=== PATIENT | female | born 1970 | race Caucasian/White ===

== ENCOUNTER → 2017-06-26 10:56 | Outpatient (CLI) | payer BC, OTHER, SELFPAY ==
[2017-06-26 12:56] LABS: Anion Gap 7 (5-15); BUN 11 mg/dL (7-18); BUN/Creat Ratio 17.7 RATIO (10-20); Calcium,Total 9.1 mg/dL (8.5-10.1); Chloride 106 mmol/L (98-107); Cholesterol 205 mg/dL (200); Creatinine, Serum 0.62 mg/dL (0.55-1.02); EST Glomerular Filtration Rate 108 mL/min (>60); Est Glom Filt Rate - Afr Amer 131 mL/min (>60); Glucose 83 mg/dL (74-106); High Density Lipoprotein 41 mg/dL; Sodium Level 138 mmol/L (136-145); Triglycerides 100 mg/dL; Very Low Density Lipoprotein 20 mg/dL (5-40)
== END ==
PROVIDERS: Family Provider Family Medicine; PCP Family Medicine; Visit Provider Family Medicine
DX: Z00.00 Encounter for general adult medical examination without abnormal findings (principal)
CPT/HCPCS: 36415; 80048; 80061

== ENCOUNTER → 2018-04-14 15:48 | Outpatient (CLI) | payer BC, SELFPAY | PROVIDERS: Family Provider Family Medicine; PCP Family Medicine; Referring Provider Otolaryngology Otolaryngology/Facial Plastic Surgery; Visit Provider Otolaryngology Otolaryngology/Facial Plastic Surgery | DX: J32.9 Chronic sinusitis, unspecified (principal); H66.90 Otitis media, unspecified, unspecified ear | CPT/HCPCS: 87070; 87205 ==

== ENCOUNTER → 2019-03-24 14:52 | Outpatient (CLI) | payer BC, SELFPAY ==
[2019-03-24 18:15] LABS: Anion Gap 7 (5-15); BUN 12 mg/dL (7-18); BUN/Creat Ratio 16.6 RATIO (10-20); Calcium,Total 9.5 mg/dL (8.5-10.1); Chloride 107 mmol/L (98-107); Cholesterol 213 mg/dL (200); Creatinine, Serum 0.72 mg/dL (0.55-1.02); EST Glomerular Filtration Rate 91 mL/min (>60); Est Glom Filt Rate - Afr Amer 110 mL/min (>60); Glucose 87 mg/dL (74-106); High Density Lipoprotein 41 mg/dL; Potassium 3.7 mmol/L (3.5-5.1); Sodium Level 140 mmol/L (136-145); Triglycerides 96 mg/dL; Very Low Density Lipoprotein 19 mg/dL (5-40)
[2019-03-24 18:17] LABS: Vitamin D,25 Hydroxy 7.7 ng/mL (29.95-100.01)
== END ==
LOC: BIMLAB 14:54 → MFPLAB 03-25 08:08
PROVIDERS: PCP Family Medicine; Referring Provider Family Medicine; Visit Provider Family Medicine
DX: Z00.00 Encounter for general adult medical examination without abnormal findings (principal)
CPT/HCPCS: 36415; 80048; 80061; 82306

== ENCOUNTER → 2019-04-07 07:43 | Outpatient (CLI) | payer BC, SELFPAY ==
--- NOTE | 2019-04-07 07:46 | BI_ITS ---
MAMMOGRAPHY - BILATERAL SCREENING REASON FOR EXAM: Female, 48 years old. Routine annual screening examination. PERTINENT HISTORY: Aunt with breast cancer. TECHNIQUE: Digital bilateral breast ezio (3D mammographic acquisition) in the CC and MLO projections. 2-D mediolateral oblique (MLO) and craniocaudad (CC) views of both breasts were obtained. CAD: Full Field Digital Mammography with Computer Added Detection was performed. COMPARISON: Comparison is made with prior outside examination dated July 16, 2016. FINDINGS: Breast Composition: The breasts are heterogeneously dense, which may obscure small masses. There are no dominant masses or suspicious calcifications. Stable benign-appearing bilateral axillary lymph nodes. No other significant abnormalities are identified. There has been no significant change since the prior study. BI/SCREEN MAMM (CAD) W/EZIO BILAT IMPRESSION: Stable bilateral screening mammogram. Yearly follow-up mammogram recommended. (A) ASSESSMENT CATEGORY: BIRADS Category 2: Benign. A letter regarding these results will be sent to the patient by the facility within 30 days. Approximately 10% of breast cancers are not detected by mammography. A normal mammogram should not delay biopsy of a clinically suspicious abnormality. [id number] Electronically Signed: Melchor Kimble, at 10:30 EST , Service support ,
--- NOTE | 2019-04-07 08:08 | BD_ITS ---
STUDY: DUAL ENERGY X-RAY ABSORPTIOMETRY / DXA REASON FOR EXAM: Female, 48 years old. 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 COMPARISON: None. FINDINGS: Lumbar Spine (L1-L4): g/cm2 (1.083) / T-score (-0.7) / Z-score (-0.3) Findings are suggestive of normal bone density with a low fracture risk. Left Femur Total: g/cm2 (0.950) / T-score (-0.5) / Z-score (0.0) Left Femoral Neck: g/cm2 (0.919) / T-score (-0.9) / Z-score (0.0) Right Femur Total: g/cm2 (0.942) / T-score (-0.5) / Z-score (0.0) Right Femoral Neck: g/cm2 (0.877) / T-score (-1.2) / Z-score (-0.3) BD/Dexa Bone Density Study IMPRESSION: The patient is considered osteopenic as outlined below according to World Meng Organization (WHO) criteria with a low fracture risk. Reference Information: The T-score is the number of standard deviations above or below the standard which is normal for young adults at their peak bone mineral density. The World Health Organization (WHO) interprets the T-scores as follows: Above -1 Normal bone density Between -1 and -2.5 Osteopenia Equal to / or below -2.5 Osteoporosis As a practical clinical guideline, osteopenia may be graded as follows: Mild -1 through -1.5 Moderate -1.6 through -2.0 Severe -2.1 through -2.4 The Z-score is the number of standard deviations above or below age-matched controls. A Z-score of less than -1.5 would be considered abnormal. References: 1. NIH Osteoporosis and Related Bone Diseases http://www.osteo.org 2. International Society for Clinical Densitometry http://www.iscd.org 3. National Osteoporosis Foundation http://www.nof.org Electronically Signed: Melchor Kimble, at 15:00 EST , Service support ,
== END ==
PROVIDERS: PCP Family Medicine; Referring Provider Family Medicine; Visit Provider Family Medicine
DX: Z12.31 Encounter for screening mammogram for malignant neoplasm of breast (principal); Z78.0 Asymptomatic menopausal state
CPT/HCPCS: 77063; 77067; 77080

== ENCOUNTER 2019-09-13 01:27 | Emergency (ER) | payer BC, SELFPAY ==
[2019-09-13 01:29] VITALS: BP 196/113; PULSE 112; RESP 11; TEMP 37; O2SAT 99; BMI 31.1
[2019-09-13 01:31] VITALS: BP 194/113
--- NOTE | 2019-09-13 01:36 | ED.RN ---
NO OLD EKGS IN MUSE
--- NOTE | 2019-09-13 01:44 | CT_ITS ---
STUDY: CT BRAIN WITHOUT CONTRAST REASON FOR EXAM: Female, 49 years old. HEADACHE AND PALPITATIONS TODAY RADIATION DOSAGE (If Supplied By Facility): CTDIvol = ( 44.99 ) mGy, DLP = ( 796.11 ) mGycm TECHNIQUE: Transaxial CT imaging of the brain was performed without administration of intravenous contrast material. Individualized dose optimization techniques were used for this CT. COMPARISON: No relevant priors. FINDINGS: Normal soft tissue structures. Normal calvarium. Normal size ventricles and extra-axial spaces for the patient''s age. Normal white matter tracts of the cerebral hemispheres. Normal basal ganglia and thalami. Normal brainstem. Normal cerebellum. In the posterior aspect of the right parietal region there is a small calcification table the skull which may represent a nonspecific intervertebral calcification measuring 3 mm versus a small calcified meningioma. There is no intracranial hemorrhage. There are no findings of an acute ischemic infarction. There is a right-sided maxillary mucosal retention cyst. CT/Brain/Head without Contrast IMPRESSION: Normal unenhanced CT scan of the brain. In the posterior aspect of the right parietal region there is a small calcification at the level of the inner table of the skull which may represent a most likely nonspecific benign calcification measuring 3 mm versus a small calcified meningioma. There is no visualized surrounding edema. Electronically Signed: Mel Damon MD at 2:14 EDT Tel , Service support ,
--- NOTE | 2019-09-13 01:44 | RAD_ITS ---
STUDY: X-RAY CHEST REASON FOR EXAM: Female, 49 years old. Heart palpitations TECHNIQUE: Single AP portable view of the chest. COMPARISON: None. FINDINGS: The lungs are underexpanded. Interstitial markings are minimally prominent centrally. There is no demonstrated pleural abnormality. Normal size heart. Normal mediastinum and nathalie. Normal visualized pulmonary arteries. Normal visualized aortic arch and descending thoracic aorta. Normal visualized thoracic spine. Normal visualized ribs, clavicles, and shoulders. There is no demonstrated abnormality of the visualized soft tissue structures of the upper abdomen. RAD/Chest 1 View (Portable) IMPRESSION: Underexpansion of the lungs. Consider central vascular congestion. Electronically Signed: Mel Damon MD at 2:05 EDT Tel , Service support ,
--- NOTE | 2019-09-13 01:44 | EKG12_ITS ---
Test Reason : TACHYCARDIA Blood Pressure : / mmHG Vent. Rate : 105 BPM Atrial Rate : 105 BPM P-R Int : 168 ms QRS Dur : 068 ms QT Int : 342 ms P-R-T Axes : 050 051 048 degrees QTc Int : 452 ms Sinus tachycardia Otherwise normal ECG Confirmed by ANGELA EASTON ([id number]), commissioning editor VASILIY COLE ([id number]) on 09/15/2019 2:49:45 PM Referred By: LEIDY Confirmed By:ANGELA EASTON
--- NOTE | 2019-09-13 01:45 | ED.VIS.GEN ---
History of Present Illness Chief Complaint: Palpitations Informant: Patient Narrative: Patient presents with palpitations. She stated her heart has been racing throughout most of the day today. It is been in the low 100s but up to 140s and 150s. She denies any chest pain or shortness of breath or cardiac symptoms. She has noticed her heart racing however. She is never had this in the past. No history of arrhythmias. Patient stated this evening she had a diffuse achy throbbing headache. She normally does not get headaches. She took Advil for this. She still has a mild headache but it is better. No fevers or chills. No pulmonary embolism risk factors. Past Medical History - Allergies and Home Meds Allergies/Adverse Reactions: Allergies morphine Allergy (Verified 09/13/19 01:28) Itching oxycodone Allergy (Verified 09/13/19 01:28) Itching Primary Care Physician: Aidan Ramsey MD [Primary Care Provider] - Prior records reviewed: Yes Past Medical History: - - Reviewed Surgical History: - - Reviewed Lives: With Family Smoking Status: Current every day smoker Alcohol: None Drugs: None Review of Systems General: Denies: Chills, Fever, Sweats Eyes: Denies: Visual changes - bilaterally, Diplopia ENT: Denies: Rhinorrhea, Sore throat Cardiovascular: Reports: Palpitations, Heart racing. Denies: Chest pain Respiratory: Denies: Dyspnea, Cough, Dyspnea on exertion Gastrointestinal: Denies: Abdominal pain, Nausea, Vomiting, Diarrhea, Melena, Hematochezia Genitourinary: Denies: Dysuria, Hematuria, Frequency Musculoskeletal: Denies: Back pain, Extremity Pain Skin: Denies: Rash, Wounds Neurological: Reports: Headache. Denies: Weakness, Numbness Physical Exam Vital Signs/Narrative: Vital Signs Temp Pulse Resp BP Pulse Ox 09/13/19 01:31 194/113 H 09/13/19 01:29 98.6 F 112 H 11 L 196/113 H 99 General: Well nourished, Well developed, No Acute Distress Head: Normocephalic, Atraumatic Eyes: Perrl, EOMI ENT: Moist mucous membranes, No rhinorrhea Neck: Supple, Nontender Cardiovascular: Regular rate, No murmurs, Tachycardia Respiratory: No distress, CTA bilaterally, Chest nontender Abdomen: Soft, Nontender, Nondistended, Normal bowel sounds Back: Nontender, Normal Inspection Extremities: Nontender, No edema Skin: Normal color, No rash Neurological: Alert, Oriented x3, Cranial nerves II-XII grossly intact, Normal Strength, Normal Sensation, Normal DTR, Normal Gait. Negative for: Confused, Disoriented Psychological: Normal affect, Normal Mood Diagnostic/Tx/Re-eval - Medical Decision Making EKG obtained shows sinus tachycardia at 105. No acute ischemic findings. Lab work chest x-ray and CT head obtained. Lab work shows nothing acute except for mildly elevated d-dimer just above 0.5. CBC shows no significant abnormalities. Troponin negative. Chest x-ray shows nothing acute. CT head shows no intracerebral or brain hemorrhage. Small 3 mm calcification versus calcified meningioma noted. CT Lizett of the chest shows no evidence of PE or dissection. Evidence of chronic COPD and aortic calcification noted. Patient's heart rate came down to the 80s. Blood pressure came down to the 160s. She will follow-up as an outpatient for repeat blood pressure check. I do not feel she needs emergent treatment at this time. Is unclear to me what was the cause of her tachycardia. She had a negative Holter monitor evaluation several years ago and we will give her another Holter. We will follow-up as an outpatient ED Disposition - Plan for ED Patient: Disposition: Home or Assisted Living Diagnosis: Sinus tachycardia, Hypertension, Headache Instructions: ED Palpitations Referrals: Aidan Ramsey MD [Primary Care Provider] -
[2019-09-13 01:46] VITALS: O2SAT 97
[2019-09-13 01:49] LABS: Absolute Lymphocyte Count 2.62 X10^3/uL (0.83-4.51); Absolute Neutrophil Count 7.8 X10^3/uL (2.0-7.7); Basophil# 0.05 X10^3/uL; Basophil% 0.4 % (0-1); Eosinophil# 0.41 X10^3/uL; Eosinophils% 3.5 % (0-5); Hematocrit 46.4 % (37-47); Hemoglobin 15.7 g/dL (12.0-15.0); Lymphocyte # 2.62 X10^3/ul (4.0); Lymphocyte % 22.6 % (19-41); Mean Corp Hgb Conc 33.8 g/dL (32-36); Mean Corpuscular Hgb 30.1 pg (27.0-32.0); Mean Corpuscular Volume 88.9 fL (81-99); Mean Platelet Vol. 9.8 fl (6.2-12.0); Monocyte# 0.67 X10^3/uL; Monocyte% 5.8 % (0-10); NRBC Flagged by Analyzer 0 % (0-5); Neutrophil # 7.83 X10^3/uL (2.7-7.7); Neutrophil % 67.5 % (47-70); Platelet Count 249 K/mm3 (150-450); RBC Distribution Width CV 12.7 % (11.6-14.6); RBC Distribution Width SD 41.1 fl (35.1-43.9); Red Blood Count 5.22 M/mm3 (4.2-5.4); White Blood Count 11.6 K/mm3 (4.4-11.0)
[2019-09-13 02:05] LABS: Anion Gap 6 (5-15); BUN 15 mg/dL (7-18); BUN/Creat Ratio 20.1 RATIO (10-20); Calcium,Total 9.6 mg/dL (8.5-10.1); Chloride 108 mmol/L (98-107); Creatinine, Serum 0.75 mg/dL (0.55-1.02); EST Glomerular Filtration Rate 87 mL/min (>60); Est Glom Filt Rate - Afr Amer 105 mL/min (>60); Estimated Creatinine Clearance 73.41 ml/min; Glucose 125 mg/dL (74-106); Potassium 3.7 mmol/L (3.5-5.1); Sodium Level 141 mmol/L (136-145)
[2019-09-13 02:38] LABS: D-Dimer Quantitative (DVT/PE) 0.51 FEU/ug/m (0.27-0.49)
--- NOTE | 2019-09-13 02:39 | CT_ITS ---
STUDY: CTA CHEST REASON FOR EXAM: Female, 49 years old. TACHYCARDIA, PALPITATIONS, ELEVATED D-DIMER RADIATION DOSAGE (If Supplied By Facility): CTDIvol = ( 12.47 ) mGy, DLP = ( 450.63 ) mGycm TECHNIQUE: The examination was performed with the intravenous administration of IV 100mL Isovue-370. Post-processing of the angiographic images was performed, with multiplanar reformation and 3D reconstruction. Individualized dose optimization techniques were used for this CT. COMPARISON: September 13, 2019 chest x-ray FINDINGS: Normal enhancement of the main pulmonary artery and right and left pulmonary arteries. Normal enhancement of the bilateral peripheral pulmonary arteries. There is no demonstrated pulmonary embolism. There is atherosclerotic calcification of the aortic arch with tortuosity. There is a bovine arch with a common takeoff of the innominate and left carotid. There is no demonstrated aortic dissection. There is borderline cardiac enlargement. Normal mediastinum. Normal hilar regions. Normal visualized trachea and bronchi. There are emphysematous blebs within the lung apices. There is suggestion of mild bronchiectasis. There are minimal areas of air trapping. Normal pleura. Normal chest wall structures. There are degenerative changes of thoracic spine. Normal visualized upper abdomen. CT/CTA Chest W/WO Contrast IMPRESSION: No visualized pulmonary embolism. Findings are suspicious for underlying chronic obstructive pulmonary disease with emphysema and areas of air trapping. There is no visualized focal consolidation. No evidence of aortic dissection. There is atherosclerotic disease of the aorta. Electronically Signed: Mel Damon MD at 3:35 EDT Tel , Service support ,
[2019-09-13] MEDS: 0.9% Normal Saline 1,000 ML 1000 ML IV (03:05)
[2019-09-13 03:50] VITALS: BP 164/90; PULSE 87; RESP 19; O2SAT 100
== END 2019-09-13 04:14 | disposition home or self-care (01) ==
PROVIDERS: Emergency Provider Emergency Medicine; PCP Family Medicine
DX: R00.0 Tachycardia, unspecified (principal); I10 Essential (primary) hypertension; R51 Headache; F17.200 Nicotine dependence, unspecified, uncomplicated
CPT/HCPCS: 70450; 71045; 71275; 80048; 84484; 85025; 85379; 93005; 99284; J7030; Q9967; A4216

== ENCOUNTER → 2019-09-13 03:44 | Outpatient (CLI) | payer BC, SELFPAY ==
[2019-09-13 01:29] VITALS: BMI 31.1
== END ==
PROVIDERS: PCP Family Medicine; Referring Provider Emergency Medicine; Visit Provider Internal Medicine Cardiovascular Disease
DX: R00.2 Palpitations (principal)
CPT/HCPCS: 93225; 93226

== ENCOUNTER → 2020-04-13 08:54 | Outpatient (CLI) | payer BC, SELFPAY ==
[2020-04-13 10:20] LABS: Cholesterol 160 mg/dL (200); High Density Lipoprotein 44 mg/dL; Triglycerides 99 mg/dL; Very Low Density Lipoprotein 20 mg/dL (5-40)
== END ==
PROVIDERS: PCP Family Medicine; Referring Provider Family Medicine; Visit Provider Family Medicine
DX: E78.5 Hyperlipidemia, unspecified (principal)
CPT/HCPCS: 36415; 80061

== ENCOUNTER → 2020-06-13 10:32 | Outpatient (CLI) | payer BC, SELFPAY ==
--- NOTE | 2020-06-13 10:35 | NEURO_ITS ---
Wendy Orellana presents for electrodiagnostic testing of the left upper limb. She reports a 3-month history of numbness in the fourth and fifth digits of the left hand. Electrodiagnostic Findings: Left median motor nerve demonstrates normal distal latency, amplitude and conduction velocity. Normal left ulnar motor response, including conduction across the elbow. Normal left median and ulnar F-waves. Normal left median sensory latency at the wrist. Left radial sensory response is within normal limits. Prolonged left ulnar sensory latency. Needle EMG testing reveals no evidence of denervation in all muscles tested in the left upper limb. Motor units are of normal amplitude and duration without polyphasic activity. Electrodiagnostic Assessment: This is an abnormal study. 1. 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 There is no electrodiagnostic evidence of ulnar motor neuropathy, including cubital tunnel syndrome. 2. No electrodiagnostic evidence for median neuropathy. 3. No electrodiagnostic evidence for cervical radiculopathy.
== END ==
PROVIDERS: PCP Family Medicine; Referring Provider Family Medicine; Visit Provider Family Medicine
DX: R20.0 Anesthesia of skin (principal)
CPT/HCPCS: 95886; 95910

== ENCOUNTER → 2020-11-02 08:51 | Outpatient (CLI) | payer BC, SELFPAY ==
[2020-11-02 10:37] LABS: Anion Gap 7 (5-15); BUN 18 mg/dL (7-18); BUN/Creat Ratio 24.5 RATIO (10-20); Calcium,Total 9.3 mg/dL (8.5-10.1); Chloride 108 mmol/L (98-107); Cholesterol 150 mg/dL (200); Creatinine, Serum 0.74 mg/dL (0.55-1.02); EST Glomerular Filtration Rate 88 mL/min (>60); Est Glom Filt Rate - Afr Amer 107 mL/min (>60); Glucose 108 mg/dL (74-106); High Density Lipoprotein 36 mg/dL; Potassium 4.1 mmol/L (3.5-5.1); Sodium Level 141 mmol/L (136-145); Triglycerides 76 mg/dL; Very Low Density Lipoprotein 15 mg/dL (5-40)
== END ==
PROVIDERS: PCP Family Medicine; Referring Provider Family Medicine; Visit Provider Family Medicine
DX: E78.5 Hyperlipidemia, unspecified (principal)
CPT/HCPCS: 36415; 80048; 80061

== ENCOUNTER 2021-06-24 08:14 | Emergency (ER) | payer BC, SELFPAY ==
[2021-06-24] VITALS (9 sets, daily range): BP systolic 114–172; BP diastolic 60–95; PULSE 101–122; RESP 18–24; TEMP 36.9–37.6; O2SAT 91–96; BMI 31.8
--- NOTE | 2021-06-24 09:06 | EDS_ITS ---
HPI History of Present Illness Chief Complaint: General Illness Informant: patient Narrative Narrative: Patient is a 50-year-old female with history of hypertension, hyperlipidemia and COPD presenting with flulike symptoms. She states she developed body aches yesterday that progressed into chest tightness, mild shortness of breath and restlessness. She had this mild episode of nausea and vomiting last night. Denies any cyst abdominal pain or change in bowel habits. Does have a chronic cough but does not feel that that is changed. Denies any sputum production. Denies any associated sore throat, ear pain or vision changes. Denies any urinary symptoms. Did take a home COVID test that was negative this morning. Did not receive a flu shot. Denies any sick contacts. Does not wear home oxygen. PFSH PFSH Home Medications cholecalciferol (vitamin D3) 2,000 unit PO DAILY 09/13/19 [History Last Taken Unknown] nortriptyline 25 mg PO QHS 09/13/19 [History Last Taken Unknown] rosuvastatin 5 mg PO DAILY 09/13/19 [History Last Taken Unknown] doxycycline monohydrate 100 mg PO BID #14 cap 06/24/21 [Rx Last Taken Unknown] metoprolol succinate 25 mg PO DAILY 06/24/21 [History Last Taken Unknown] Allergy/AdvReac Type Severity Reaction Status Date / Time morphine Allergy Itching Verified 06/24/21 08:18 oxycodone Allergy Itching Verified 06/24/21 08:18 Social History Smoking Status: Current every day smoker tobacco type: cigarettes ROS ROS ED Constitutional Constitutional ED: Reports chills; Denies fever(s) Eyes Eyes: Denies blurry vision or change in vision ENT ENT ED: Denies ear pain, rhinorrhea or sore throat Cardiovascular Cardiovascular: Denies chest pain or palpitations Respiratory/Chest Respiratory/Chest: Reports cough and dyspnea; Denies dyspnea on exertion or sputum Gastrointestinal Gastrointestinal: Reports nausea and vomiting; Denies abdominal pain, constipation or diarrhea Genitourinary Genitourinary ED: Denies dysuria, hematuria or urinary frequency Musculoskeletal Musculoskeletal: Reports myalgias; Denies arthralgias, back pain or neck pain Integumentary Denies rash Neurologic Neurologic: Denies headache(s), paresthesias or weakness Psychiatric Psychiatric: Denies anxiety or depression EXAM Physical Exam Const Vital Signs: 06/24/21 08:16 06/24/21 08:18 06/24/21 08:31 Temperature 99.7 F H 99.7 F H Temperature Source Oral Oral Pulse Rate 122 H 112 H 112 H Respiratory Rate 24 H 24 H 24 H Respiratory Effort Respiratory Pattern Blood Pressure 172/95 H 159/93 H 159/93 H Blood Pressure Mean 120 115 115 Pulse Ox 92 96 96 Oxygen Delivery Method Room Air Room Air Room Air 06/24/21 08:36 06/24/21 09:18 06/24/21 10:15 Temperature 98.9 F 98.4 F Temperature Source Oral Oral Pulse Rate 110 H 101 H Respiratory Rate 20 H 18 Respiratory Effort Normal Non-Labored Respiratory Pattern Normal Blood Pressure 161/87 H 149/60 H Blood Pressure Mean 111 89 Pulse Ox 93 94 Oxygen Delivery Method Room Air Room Air 06/24/21 10:18 06/24/21 11:00 06/24/21 12:00 Temperature 98.4 F 98.7 F 98.6 F Temperature Source Oral Oral Oral Pulse Rate 101 H 102 H 103 H Respiratory Rate 18 18 18 Respiratory Effort Respiratory Pattern Blood Pressure 149/60 H 145/76 H 114/79 Blood Pressure Mean 89 99 90 Pulse Ox 94 91 93 Oxygen Delivery Method Room Air Room Air Room Air Positive well nourished and well developed General Appearance ED: well developed and NAD HEENT Reports TM's clear and moist mucous membranes Negative for tenderness Tympanic Membrane ED: Yes TM's clear Eyes PERRL and EOMs intact bilaterally Neck No no lymphadenopathy and supple General: other No meningeal signs Chest Wall inspection of chest normal Resp normal respiratory effort Resp Narrative: Diminished breath sounds at the left base Auscultation: Negative for rales, rhonchi or wheezes Cardio regular rhythm and no murmurs Rate: tachycardic GI normal to inspection, nondistended, normoactive bowel sounds and non-tender Palpation: soft Back/Spine no CVA tenderness Extremity normal to inspection General Extremety ED: Negative for edema or tenderness General Extremity: Negative for edema Neuro oriented x3 and CN's II-XII intact bilaterally Sensorium / Orientation: alert Motor Exam: Negative for general weakness Psych mental status grossly normal Skin no rashes or lesions noted and no wounds MDM MDM MDM Narrative Medical decision making narrative: Patient's evaluated for generalized malaise, fatigue, nausea and one episode of vomiting. On arrival patient has a low-grade temp of 99.7 and is tachycardic and mildly tachypneic. States she has been feeling short of breath over the past few days. She is not wheezing and I do not think a breathing treatment be beneficial at this time. No significant cough. COVID and influenza swabs are negative. Patient's lactate is normal and she has a no leukocytosis. She does have a mild left shift. CMP largely unremarkable. Abdomen is soft and nontender not think abdominal imaging is indicated. Urinalysis is negative. Chest x-ray is interpreted by myself as well as radiology. It is read as no acute infiltrate but there are increased bibasilar markings. Given the patient's symptoms will treat empirically with doxycycline in case she does have an underlying pneumonia. She is agreeable with this. Patient is given IV fluids, Zofran and Toradol. She has significant improvement of her symptoms on evaluation. She is ambulate in the ER does not have any hypoxia. She does have a history of tachycardia and this is more chronic for her. She is on metoprolol for this. Do not think this requires further emergent evaluation. Patient is counseled that likely she has pneumonia versus a viral syndrome. She is counseled that should she have any worsening symptoms or not feel better after 48 hours of antibiotic she should return to the emergency room. She verbalizes agreement of this plan. Discharged home in stable condition. Lab Data Attestation: I reviewed the patient's lab results. Labs: Laboratory Results - last 24 hr 06/24/21 06/24/21 06/24/21 09:00 09:00 09:00 WBC 7.3 RBC 4.97 Hgb 14.5 Hct 43.4 MCV 87.3 MCH 29.2 MCHC 33.4 RDW Std Deviation 41.1 RDW Coeff of Anu 12.9 Plt Count 200 MPV 10.6 Immature Gran % (Auto) 1.700 H Neut % (Auto) 79.1 H Lymph % (Auto) 7.8 L [place] % (Auto) 10.2 H Eos % (Auto) 0.6 Baso % (Auto) 0.6 Absolute Neuts (auto) 5.8 Absolute Lymphs (auto) 0.57 L Nucleated RBC % 0 Platelet Estimate ADEQUATE RBC Morphology NORM C+C Sodium 137 Potassium 3.3 L Chloride 105 Carbon Dioxide 24.0 Anion Gap 8 BUN 12 Creatinine 0.68 Estim Creat Clear Calc 80.06 Est GFR (MDRD) Af Amer 117 Est GFR (MDRD) Non-Af 97 BUN/Creatinine Ratio 17.7 Glucose 113 H Lactic Acid 0.9 Calcium 8.8 Total Bilirubin 0.40 AST 42 H ALT 91 H Alkaline Phosphatase 83 Total Protein 7.4 Albumin 3.8 Globulin 3.6 Albumin/Globulin Ratio 1.1 Lipase 57 L Urine Color Urine Clarity Urine pH Ur Specific [place] Urine Protein Urine Glucose (UA) Urine Ketones Urine Occult Blood Urine Nitrite Urine Bilirubin Urine Urobilinogen Ur Leukocyte Esterase Urine RBC Urine WBC Ur Squamous Epith Cells Urine Bacteria Urine Mucus 06/24/21 10:30 WBC RBC Hgb Hct MCV MCH MCHC RDW Std Deviation RDW Coeff of Anu Plt Count MPV Immature Gran % (Auto) Neut % (Auto) Lymph % (Auto) [place] % (Auto) Eos % (Auto) Baso % (Auto) Absolute Neuts (auto) Absolute Lymphs (auto) Nucleated RBC % Platelet Estimate RBC Morphology Sodium Potassium Chloride Carbon Dioxide Anion Gap BUN Creatinine Estim Creat Clear Calc Est GFR (MDRD) Af Amer Est GFR (MDRD) Non-Af BUN/Creatinine Ratio Glucose Lactic Acid Calcium Total Bilirubin AST ALT Alkaline Phosphatase Total Protein Albumin Globulin Albumin/Globulin Ratio Lipase Urine Color Yellow Urine Clarity Clear Urine pH 7.0 Ur Specific [place] 1.010 Urine Protein Negative Urine Glucose (UA) Normal Urine Ketones Negative Urine Occult Blood 10 H Urine Nitrite Negative Urine Bilirubin Negative Urine Urobilinogen Normal Ur Leukocyte Esterase Negative Urine RBC 0 SEEN Urine WBC 0 SEEN Ur Squamous Epith Cells 0 SEEN Urine Bacteria 0 SEEN Urine Mucus 0 SEEN Radiography Chest X-Ray - ED: 1 View, Read by ED Physician, Read by Radiologist and No Acute Disease Diagnostic Testing: Clinical Impression(s) from Imaging Studies Chest X-Ray 06/24/21 09:35 IMPRESSION: Mild degree of increased markings at the lung bases suggestive of bibasilar atelectasis. Electronically Signed: Melchor Kimble MD at 10:58 EDT , Discharge Plan Triage Chief Complaint: General Illness ED Provider: Izzy Doe Dx/Rx/DC Orders Clinical Impression: Pneumonia, Malaise and fatigue, Tachycardia Instructions: ED Pneumonia (Adult) Prescriptions: New doxycycline monohydrate 100 mg capsule 100 mg PO BID Qty: 14 RF: 0 No Action nortriptyline 25 MG capsule 25 mg PO QHS RF: 0 rosuvastatin 5 MG tablet 5 mg PO DAILY RF: 0 cholecalciferol (vitamin D3) 1,000 UNIT tablet 2,000 unit PO DAILY RF: 0 metoprolol succinate 25 mg tablet extended release 24 hr 25 mg PO DAILY RF: 0 Primary Care Provider: Aidan Ramsey Referrals: Aidan Ramsey MD [Primary Care Provider] - Activity Restrictions/Additional Instructions: Drink plenty of fluids. Is possibly have a viral illness. It is possible there is a small pneumonia that the chest x-ray did not capture. He will be started on antibiotics just in case. If you do not feel you are improving over the next 48 hours please return to the emergency room. If like you are getting worse at any time or have difficulty breathing please return to the emergency room. Disposition Disposition: Home, Self Care Discharge Date/Time: 06/24/21 12:15
[2021-06-24] MEDS: 0.9% Normal Saline 1,000 ML 1000 ML IV (09:10)
[2021-06-24] MEDS: Ondansetron 4 MG/2 ML Vial IV (09:10)
[2021-06-24] MEDS: Ketorolac 15 MG/ML Vial IV (09:13)
[2021-06-24 09:27] LABS: Absolute Lymphocyte Count 0.57 X10^3/uL (0.83-4.51); Absolute Neutrophil Count 5.8 X10^3/uL (2.0-7.7); Basophil# 0.04 X10^3/uL; Basophil% 0.6 % (0-1); Eosinophil# 0.04 X10^3/uL; Eosinophils% 0.6 % (0-5); Hematocrit 43.4 % (37-47); Hemoglobin 14.5 g/dL (12.0-15.0); Lymphocyte # 0.57 X10^3/ul (0.83-4.51); Lymphocyte % 7.8 % (19-41); Mean Corp Hgb Conc 33.4 g/dL (32-36); Mean Corpuscular Hgb 29.2 pg (27.0-32.0); Mean Corpuscular Volume 87.3 fL (81-99); Mean Platelet Vol. 10.6 fl (6.2-12.0); Monocyte# 0.74 X10^3/uL; Monocyte% 10.2 % (0-10); NRBC Flagged by Analyzer 0 % (0-5); Neutrophil # 5.76 X10^3/uL (2.7-7.7); Neutrophil % 79.1 % (47-70); POSITIVE DIFFERENTIAL YES; Platelet Count 200 K/mm3 (150-450); RBC Distribution Width CV 12.9 % (11.6-14.6); RBC Distribution Width SD 41.1 fl (35.1-43.9); Red Blood Count 4.97 M/mm3 (4.2-5.4); White Blood Count 7.3 K/mm3 (4.4-11.0)
[2021-06-24 09:32] LABS: Differential Indicated SCAN CRITERIA MET
--- NOTE | 2021-06-24 09:35 | RAD_ITS ---
STUDY: X-RAY CHEST REASON FOR EXAM: Female, 50 years old. Sob, cough TECHNIQUE: Single AP portable view of the chest. COMPARISON: Comparison is made with prior study dated 09/13/2019. FINDINGS: Mild increased markings at the lung bases suggestive of bibasilar atelectasis. There is no demonstrated pleural abnormality. Normal size heart. Normal mediastinum and nathalie. Normal visualized pulmonary arteries. Normal visualized aortic arch and descending thoracic aorta. There are degenerative changes of the visualized thoracic spine. Normal visualized ribs, clavicles, and shoulders. There is no demonstrated abnormality of the visualized soft tissue structures of the upper abdomen. RAD/Chest 1 View (Portable) IMPRESSION: Mild degree of increased markings at the lung bases suggestive of bibasilar atelectasis. Electronically Signed: Melchor Kimble MD at 10:58 EDT ,
[2021-06-24 09:45] LABS: ALB/GLOB Ratio 1.1 RATIO (0.9-2.4); AST(SGOT) 42 U/L (15-37); Alanine Aminotransfer ALT/SGPT 91 U/L (13-56); Albumin, Serum 3.8 g/dL (3.2-5.0); Alkaline Phosphatase 83 U/L (45-117); Anion Gap 8 (5-15); BUN 12 mg/dL (7-18); BUN/Creat Ratio 17.7 RATIO (10-20); Calcium,Total 8.8 mg/dL (8.5-10.1); Chloride 105 mmol/L (98-107); Creatinine, Serum 0.68 mg/dL (0.55-1.02); EST Glomerular Filtration Rate 97 mL/min (>60); Est Glom Filt Rate - Afr Amer 117 mL/min (>60); Estimated Creatinine Clearance 80.06 ml/min; Globulin 3.6 g/dL (2.2-4.2); Glucose 113 mg/dL (74-106); Lipase 57 U/L (73-393); Potassium 3.3 mmol/L (3.5-5.1); Protein, Total 7.4 g/dL (6.4-8.2); Sodium Level 137 mmol/L (136-145)
[2021-06-24 09:49] LABS: Lactic Acid 0.9 mmol/L (0.4-1.9)
[2021-06-24 09:58] LABS: Platelet Estimate ADEQUATE (ADEQ); Red Cell Morphology NORM C+C NORMAL (NORM C&C)
[2021-06-24 10:41] LABS: Bacteria 0 SEEN /hpf (None Seen); Mucous, Urine 0 SEEN /hpf (<or=2+); Red Blood Cells-Urine 0 SEEN /hpf (0-5); Squamous Epithelial Cells - UA 0 SEEN /hpf (5-10); White Blood Cells 0 SEEN /hpf (0-5)
[2021-06-24 11:07] LABS: Color, Urine Yellow (Yellow); Glucose, Dipstick Normal (Normal); Ketone-Dipstick Negative (Negative); Leukocyte Esterase-Dipstick Negative /ul (Negative); Nitrite-Dipstick Negative (Negative); Occult Blood-Urine 10 /ul (Negative); Protein-Dipstick Negative (Negative); Urine Bilirubin Dipstick Negative (Negative); Urine Clarity Clear (Clear); Urine Urobilinogen Normal (Normal)
[2021-06-24] MEDS: Doxycycline 100 MG CAPSULE PO (12:06)
== END 2021-06-24 12:15 | disposition home or self-care (01) ==
PROVIDERS: Emergency Provider Emergency Medicine; PCP Family Medicine; Visit Provider Emergency Medicine
DX: J18.9 Pneumonia, unspecified organism (principal); R53.81 Other malaise; R53.83 Other fatigue; R00.0 Tachycardia, unspecified; I10 Essential (primary) hypertension; F17.210 Nicotine dependence, cigarettes, uncomplicated; Z79.899 Other long term (current) drug therapy
CPT/HCPCS: 71045; 80053; 81001; 83605; 83690; 85025; 87086; 87088; 87428; 96361; 96374; 96375; 99284; J7030; A4216; J2405

== ENCOUNTER → 2021-10-30 | Outpatient (CLI) | payer BC, SELFPAY ==
--- NOTE | 2021-10-30 11:30 | RAD_ITS ---
INDICATION: PAIN EXAMINATION/TECHNIQUE: X-RAY - XR Ribs Unilateral W/ PA Chest Min 3 Views: Frontal and lateral chest radiograph with 2V right rib series: 4 images COMPARISON: June 24, 2021. FINDINGS: SOFT TISSUES: Aortic arch atherosclerosis. Normal cardiac size. Superficial soft tissues are unremarkable BONES: No displaced fracture. No sclerotic or destructive changes observed. Mild lateral curvature of the thoracolumbar spine. VISUALIZED LUNGS: No airspace consolidation or effusion. No florid edema. No pneumothorax. Lung volumes are improved from prior exam. RAD/Ribs Uni Min 3V w/PA Chest IMPRESSION: No evidence of acute cardiopulmonary process. No displaced fracture or specific finding for patient''s pain. Electronically Signed: Tye Larkin MD at 8:20 EDT ,
== END | disposition home or self-care (01) ==
PROVIDERS: PCP Family Medicine; Referring Provider Family Medicine; Visit Provider Family Medicine
DX: R07.81 Pleurodynia (principal)
CPT/HCPCS: 71101

== ENCOUNTER → 2022-01-10 | Outpatient (CLI) | payer OTHER, SELFPAY ==
[2022-01-10 12:21] LABS: Absolute Lymphocyte Count 2.97 X10^3/uL (0.83-4.51); Absolute Neutrophil Count 6.9 X10^3/uL (2.0-7.7); Basophil# 0.07 X10^3/uL; Basophil% 0.6 % (0-1); Eosinophil# 0.39 X10^3/uL; Eosinophils% 3.5 % (0-5); Hematocrit 47.4 % (37-47); Hemoglobin 15.6 g/dL (12.0-15.0); Lymphocyte # 2.97 X10^3/ul (0.83-4.51); Mean Corp Hgb Conc 32.9 g/dL (32-36); Mean Corpuscular Hgb 29.2 pg (27.0-32.0); Mean Corpuscular Volume 88.8 fL (81-99); Mean Platelet Vol. 10.1 fl (6.2-12.0); Monocyte# 0.65 X10^3/uL; Monocyte% 5.9 % (0-10); NRBC Flagged by Analyzer 0 % (0-5); Neutrophil # 6.91 X10^3/uL (2.7-7.7); Neutrophil % 62.7 % (47-70); Platelet Count 299 K/mm3 (150-450); RBC Distribution Width CV 12.9 % (11.6-14.6); RBC Distribution Width SD 41.9 fl (35.1-43.9); Red Blood Count 5.34 M/mm3 (4.2-5.4)
[2022-01-10 12:56] LABS: ALB/GLOB Ratio 1.1 RATIO (0.9-2.4); AST(SGOT) 15 U/L (15-37); Alanine Aminotransfer ALT/SGPT 42 U/L (13-56); Albumin, Serum 3.9 g/dL (3.2-5.0); Alkaline Phosphatase 101 U/L (45-117); Anion Gap 7 (5-15); BUN 26 mg/dL (7-18); BUN/Creat Ratio 27.5 RATIO (10-20); Calcium,Total 9.6 mg/dL (8.5-10.1); Chloride 107 mmol/L (98-107); Creatinine, Serum 0.94 mg/dL (0.55-1.02); EST Glomerular Filtration Rate 66 mL/min (>60); Est Glom Filt Rate - Afr Amer 80 mL/min (>60); Globulin 3.7 g/dL (2.2-4.2); Glucose 79 mg/dL (74-106); Lipase 106 U/L (73-393); Potassium 4.1 mmol/L (3.5-5.1); Protein, Total 7.6 g/dL (6.4-8.2); Sodium Level 140 mmol/L (136-145)
--- NOTE | 2022-01-10 19:00 | US_ITS ---
EXAM: US ABDOMEN COMPLETE CLINICAL INDICATION: ABD PAIN TECHNIQUE: Real-time ultrasound of the abdomen with image documentation. This report was created using [employer] report generation technology. COMPARISON: None. FINDINGS: Left renal cyst identified. No other renal abnormalities. Heterogeneous appearance of liver without discrete mass. Liver also measures 18.5 cm in length. Visualized pancreas is unremarkable. Gallbladder is unremarkable with sonographic Forde''s sign noted to be absent. Main portal vein is patent with hepatopedal direction of blood flow. Common bile that is normal. Right kidney is normal. Left kidney is normal in size and contains a 2.5 cm cyst at the lower pole. This is benign. No additional follow-up needed. Splenomegaly measuring 13.3 cm. Aorta and IVC are unremarkable. US/Abdomen Complete IMPRESSION: 1. Hepatosplenomegaly. 2. Benign left renal cyst. 3. No other significant abnormalities. Electronically Signed: Michael Lam MD at 20:20 EST ,
== END | disposition home or self-care (01) ==
PROVIDERS: PCP Family Medicine; Referring Provider Family Medicine; Visit Provider Family Medicine
DX: R10.9 Unspecified abdominal pain (principal)
CPT/HCPCS: 36415; 76700; 80053; 83690; 85025

== ENCOUNTER → 2022-01-15 | Outpatient (CLI) | payer OTHER, SELFPAY ==
[2022-01-18 12:09] LABS: EBV Acute VCA IgM < 36.0 U/mL (0.0-35.9); EBV Nuclear Antigen IgG < 18.0 U/mL (0.0-17.9)
== END | disposition home or self-care (01) ==
LOC: MFPLAB 15:06
PROVIDERS: PCP Family Medicine; Visit Provider Family Medicine
DX: R16.1 Splenomegaly, not elsewhere classified (principal)
CPT/HCPCS: 36415; 86664; 86665

== ENCOUNTER → 2022-06-26 | Outpatient (CLI) | payer OTHER, SELFPAY ==
--- NOTE | 2022-06-26 15:23 | RAD_ITS ---
STUDY: X-RAY CHEST REASON FOR EXAM: Female, 51 years old. Shortness of breath. History of COPD. Recently stopped smoking. TECHNIQUE: PA and lateral views of the chest. COMPARISON: June 24, 2021 FINDINGS: Limited inspiratory effort without acute infiltrate or mass. There is no demonstrated pleural abnormality. Normal size heart. Normal mediastinum and nathalie. Normal visualized pulmonary arteries. Normal visualized aortic arch and descending thoracic aorta. There is a levoscoliosis of the thoracic spine. Normal visualized ribs, clavicles, and shoulders. There is no demonstrated abnormality of the visualized soft tissue structures of the upper abdomen. RAD/Chest PA and Lateral IMPRESSION: Limited inspiratory effort without acute cardiopulmonary disease. Electronically Signed: Lane Gomez DO at 21:53 EDT ,
== END | disposition home or self-care (01) ==
LOC: RAD 15:21
PROVIDERS: PCP Family Medicine; Referring Provider Internal Medicine Pulmonary Disease; Visit Provider Internal Medicine Pulmonary Disease
DX: R06.02 Shortness of breath (principal); J44.9 Chronic obstructive pulmonary disease, unspecified
CPT/HCPCS: 71046

== ENCOUNTER → 2022-10-31 | Outpatient (CLI) | payer OTHER, SELFPAY ==
[2022-10-31 17:33] LABS: Absolute Lymphocyte Count 2.78 X10^3/uL (0.83-4.51); Absolute Neutrophil Count 5.6 X10^3/uL (2.0-7.7); Basophil# 0.05 X10^3/uL; Basophil% 0.5 % (0-1); Eosinophil# 0.28 X10^3/uL; Hematocrit 44.3 % (37-47); Hemoglobin 13.9 g/dL (12.0-15.0); Lymphocyte # 2.78 X10^3/ul (0.83-4.51); Lymphocyte % 29.8 % (19-41); Mean Corp Hgb Conc 31.4 g/dL (32-36); Mean Corpuscular Volume 89.1 fL (81-99); Monocyte# 0.56 X10^3/uL; NRBC Flagged by Analyzer 0 % (0-5); Neutrophil # 5.64 X10^3/uL (2.7-7.7); Neutrophil % 60.4 % (47-70); Platelet Count 290 K/mm3 (150-450); RBC Distribution Width CV 12.7 % (11.6-14.6); RBC Distribution Width SD 41.4 fl (35.1-43.9); Red Blood Count 4.97 M/mm3 (4.2-5.4); White Blood Count 9.3 K/mm3 (4.4-11.0)
[2022-10-31 18:14] LABS: ALB/GLOB Ratio 1.1 RATIO (0.9-2.4); AST(SGOT) 21 U/L (15-37); Alanine Aminotransfer ALT/SGPT 49 U/L (13-56); Alkaline Phosphatase 94 U/L (45-117); Anion Gap 6 (5-15); BUN 18 mg/dL (7-18); Calcium,Total 9.4 mg/dL (8.5-10.1); Chloride 107 mmol/L (98-107); Cholesterol 141 mg/dL (200); EST Glomerular Filtration Rate 69 mL/min (>60); Est Glom Filt Rate - Afr Amer 84 mL/min (>60); Globulin 3.6 g/dL (2.2-4.2); Glucose 93 mg/dL (74-106); High Density Lipoprotein 45 mg/dL; Potassium 3.6 mmol/L (3.5-5.1); Protein, Total 7.6 g/dL (6.4-8.2); Sodium Level 138 mmol/L (136-145); Thyroid Stim Hormone (TSH) 1.57 uIU/mL (0.358-3.74); Triglycerides 62 mg/dL; Very Low Density Lipoprotein 12 mg/dL (5-40)
== END | disposition home or self-care (01) ==
LOC: MFPLAB 16:23
PROVIDERS: PCP Family Medicine; Visit Provider Family Medicine
DX: E78.5 Hyperlipidemia, unspecified (principal); R53.83 Other fatigue
CPT/HCPCS: 36415; 80053; 80061; 84443; 85025

== ENCOUNTER → 2022-12-04 | Outpatient (CLI) | payer OTHER, SELFPAY ==
--- NOTE | 2022-12-04 15:38 | RAD_ITS ---
EXAM: XR RIGHT SHOULDER COMPLETE, 2 OR MORE VIEWS CLINICAL INDICATION: SHOULDER PAIN TECHNIQUE: Two or more views of the right shoulder. COMPARISON: No relevant prior studies available. FINDINGS: BONES/JOINTS: Unremarkable. No acute fracture. No subluxation. Normal alignment. Preservation of the joint space. No sclerotic or destructive changes observed. SOFT TISSUES: Unremarkable. No soft tissue swelling or gas. No radiopaque foreign body. RAD/Shoulder min 2 Views IMPRESSION: Negative right shoulder x-rays. Electronically Signed: Kailash Molina MD at 23:41 EDT ,
== END | disposition home or self-care (01) ==
LOC: MTRAD 15:37
PROVIDERS: PCP Family Medicine; Referring Provider Family Medicine; Visit Provider Family Medicine
DX: M25.511 Pain in right shoulder (principal)
CPT/HCPCS: 73030

== ENCOUNTER 2023-01-02 15:30 | Outpatient (RCR) | payer OTHER, SELFPAY ==
--- NOTE | 2022-12-24 16:02 | HP.PTEVAL_ITS ---
Patient's Visit Information Visit Information Visit Information: BELIA FOX is a 52 year old F referred to Physical Therapy by Dr. Aidan Ramsey MD with a diagnosis of RIGHT SHOULDER PAIN. Date of Evaluation: 12/24/22 Physical Therapist: Jefferson Camarena, PT, Cert MDT, OCS Visit Plan Frequency: 2x /Week Duration: 4 Weeks Plan: PT INTERVTIONS ROM ,RTC/SCPAULAR STRENGTHNEING AND POSTURAL EX'S ,MANUAL THERAPY AND MODLATIES Subjective Subjective: This 52 y/o female presents to physical therapy with right shoulder pain. Patient has had right shoulder pain ~ [address] recommended PT ,x-rays-. Patient was provided meloxicam. Aggravating factors lifting OH , arms out in front reaching behind back affects job demands and housework . Pre disposing factors work demands repetitive in nature. Location anterior shoulder. Alleviating factors rest. Denies paresthesia/tingling-. Patient sleeping okay nut has sleep apnea. Patient patient affects job demands and housework tasks. SOCIAL: VOACTION: [employer] ,assembling Pain Right Shoulder: Pain Intensity (Out of 10): 3 Pain Intensity Range: 10 Objective Objective: POSTURE: mild forward posture PALAPTION: tender AC NEURO: denies paresthesia/tingling ,reflexes C5-6-7 1/3 AROM: shoulder flexion /abduction 140 degrees , ER 90 degrees ,IR L1 PROM: shoulder flexion /abduction 160 degrees MMT: infraspinatus /supraspinatus/subscapularis 4/5 ,deltoid4-/5 Special Tests R Shoulder Lift Off Test - Subscapular Tear: Negative R Shoulder Drop Sign - IS Test: Negative R Shoulder Neer - Impingement: Positive R Shoulder [place] Kayden - Impingement: Positive R Shoulder Biceps Load Test - Labrum: Negative R Shoulder Speeds Test - Labrum/Biceps: Positive R Shoulder [place]ri[place] - SLAP/A-C: Positive Balance/Special Test Scores Quick DASH Score: 34.0900 Goals Goal 1:: Patient to be I with HEP shoulder Goal Time Frame: 4-6 Weeks Goal 2:: Patient to demonstrate 50% improvement with improved function and ADL'S Goal Time Frame: 4-6 Weeks Goal 3:: Patient to improve AROM shoulder ROM 160 degrees for ADLS and housework's . Goal Time Frame: 4-6 Weeks Goal 4:: Patient to improve activities and housework and ADLS with min limitation. Goal Time Frame: 4-6 Weeks Goal 5:: Patient to improve shoulder quick dash by 5 points to improve function with ADLS Goal Time Frame: 4-6 Weeks Rehabilitation Potential Physical Therapy Diagnosis: This patient has possible tendinopathy with impingement with pain with ROM and strength impairs function ADLS and housework tasks thus benefit from skilled Rehabilitation Potential: Good Anticipated Interventions Patient/Client Instruction: Educate patient on: Condition and Plan of Care For the Purpose of:: To decrease pain, To increase ROM, To improve muscle performance and motor function, To increase tolerance to activity/condition/position, To improve ability of physical actions for home/community/work/leisure, To improve health of tissue, To decrease soft tissue restriction, To increase flexibility/ROM, To reduce risk of recurrence, To prevent re-injury and To improve tolerance to ADL's Therapeutic Exercise to Include: Strength training, Postural training, Flexibilty training, Active ROM and Scapular Strength/Stabilization Comment: RTC For the Purpose of:: To decrease pain, To increase ROM, To improve muscle performance and motor function, To improve ability to perform ADL's, To increase tolerance to activity/condition/position, To improve ability of physical actions for home/community/work/leisure, To improve health of tissue, To decrease soft tissue restriction, To increase flexibility/ROM and To reduce risk of recurrence Manual Therapy Techniques to Include: Mobilization For the Purpose of:: To decrease pain, To increase ROM, To improve health of tissue, To decrease soft tissue restriction and To increase flexibility/ROM TENS: Yes IF ES: Yes Cryotherapy (ice pack, ice massage): Yes Thermo therapy (hot pack): Yes Ultrasound (thermal/non thermal): Yes For the Purpose of:: To decrease pain, To increase ROM, To improve nutrient delivery to tissue, To increase oxygenation perfusion, To improve health of tissue and To decrease soft tissue restriction Text: Thank you for the opportunity to evaluate your patient. For Medicare and Medicare HMO plans, please review the plan of care and approve it. It will need to be FAXED BACK to us at [phone] for Medicare purposes. For Medicare only, by signing this I certify the plan of care. Please let me know if there are questions or concerns regarding this plan of care. Physician Signature: Date:
--- NOTE | 2023-06-08 12:51 | HP.PTDCSUM ---
Discharge Summary D/C summary: It has been my pleasure to treat BELIA FOX referred by Dr. Aidan Ramsey MD, with the diagnosis of RIGHT SHOULDER PAIN for a total of 4 visit(s). Discharge Date: Please see the following information for a summary of their discharge status. Subjective Subjective: Just came from work. SH is bothering her even at rest now. Noted UT and SH swollen now . Waiting on MRI. Pain Right Shoulder: Pain Intensity (Out of 10): 7 Objective Objective/Function: PT added in US today to R SH today to reduce pain. pt is using TENS at home. pt will use it more now to the R SH. PT approved the addition of US. pt is going to call Dr and get an appt for a f/u visit. Goals Goal 1:: Patient to be I with HEP shoulder Goal 2:: Patient to demonstrate 50% improvement with improved function and ADL'S Goal 3:: Patient to improve AROM shoulder ROM 160 degrees for ADLS and housework's . Goal 4:: Patient to improve activities and housework and ADLS with min limitation. Goal 5:: Patient to improve shoulder quick dash by 5 points to improve function with ADLS Plan Plan: PT INTERVTIONS ROM ,RTC/SCPAULAR STRENGTHNEING AND POSTURAL EX'S ,MANUAL THERAPY AND MODLATIES D/C Information d/c sentence: If there are questions or concerns regarding this patient's physical therapy, please feel free to call me at [phone]. Thank you for the referral of this patient. Sincerely, Jefferson Camarena, PT, Cert MDT, OCS Balance/Gait/Functional tests Balance/Special Test Scores Quick DASH Score: 34.0900
== END 2023-01-02 19:00 | disposition home or self-care (01) ==
LOC: PT 15:30
PROVIDERS: PCP Family Medicine; Referring Provider Family Medicine; Visit Provider Family Medicine
DX: M25.511 Pain in right shoulder (principal)
CPT/HCPCS: 97035; 97110; 97162

== ENCOUNTER → 2023-07-28 | Outpatient (CLI) | payer OTHER, SELFPAY ==
--- NOTE | 2023-07-28 17:48 | CT_ITS ---
STUDY: LOW DOSE CT LUNG CANCER SCREENING REASON FOR EXAM: Female, 53 years old. Prior smoker. One pack per day x 25 years, quit 1 year ago RADIATION DOSAGE (If Supplied By Facility): CTDIvol = ( 4.02 ) mGy, DLP = ( 111.29 ) mGycm TECHNIQUE: No contrast was administered. Low dose technique was utilized (average mAS-38 and kVp 120). 1.25 mm axial source images with a slice interval of 1.25-mm were reconstructed in lung windows. Coronal and sagittal reformats obtained. COMPARISON: Chest radiograph June 26, 2022 NODULES: No suspicious pulmonary nodules. Parenchyma: Mild atelectasis within the inferior lingula. No consolidation, effusion, or pneumothorax. Mild upper lung centrilobular emphysematous change. Endobronchial lesion: Mild peribronchial thickening without evidence of intrabronchial mass. Aorta: Aortic atherosclerosis without ectasia CORONARY ARTERIES: No densely calcified coronary atherosclerosis. Heart: No cardiomegaly or pericardial effusion. Pulmonary artery: Unremarkable pulmonary outflow tract nonangiogram exam Mediastinal nodes: No mediastinal or hilar adenopathy. Other chest and abdominal findings: Unremarkable thyroid. Unremarkable esophagus. CT/Low Dose CT Lung Screening IMPRESSION: No suspicious pulmonary nodules. Lung-RADS category 1 - Continue annual screening with LDCT in 12 months. IMPORTANT NOTES FOR USE: ACR Lung-RADS Version 1.1 Assessment Categories Release Date: 2018 Category: Coded 0-4 bases on nodule(s) with highest degree of suspicion. Negative screen is defined as categories 1 and 2; a positive screen is defined as categories 3 and 4. Category 3 and 4A nodules that are unchanged on interval CT should be coded as category 2, and individuals returned to screening in 12 months. Category 4X: Category 3 or 4 nodules with additional imaging findings that increase the suspicion of lung cancer, such as spiculation, GGN that doubles in size in 1 year, enlarged lymph notes, etc. Category Modifiers: S (significant finding unrelated to lung cancer) Electronically Signed: Tye Larkin MD at 18:26 EDT ,
== END | disposition home or self-care (01) ==
LOC: CT 17:47
PROVIDERS: PCP Family Medicine; Referring Provider Internal Medicine Pulmonary Disease; Visit Provider Internal Medicine Pulmonary Disease
DX: Z12.2 Encounter for screening for malignant neoplasm of respiratory organs (principal); Z87.891 Personal history of nicotine dependence
CPT/HCPCS: 71271

== ENCOUNTER → 2024-02-11 | Outpatient (CLI) | payer OTHER, SELFPAY ==
[2024-02-11 17:48] LABS: Basophil# 0.06 X10^3/uL; Basophil% 0.7 % (0-1); Eosinophil# 0.27 X10^3/uL; Eosinophils% 2.9 % (0-5); Hematocrit 45.9 % (37-47); Hemoglobin 15.2 g/dL (12.0-15.0); Lymphocyte % 32.6 % (19-41); Mean Corp Hgb Conc 33.1 g/dL (32-36); Mean Corpuscular Volume 84.7 fL (81-99); Mean Platelet Vol. 9.8 fl (6.2-12.0); Monocyte# 0.81 X10^3/uL; Monocyte% 8.8 % (0-10); NRBC Flagged by Analyzer 0 % (0-5); Neutrophil # 5.03 X10^3/uL (2.7-7.7); Neutrophil % 54.6 % (47-70); Platelet Count 307 K/mm3 (150-450); RBC Distribution Width CV 13.1 % (11.6-14.6); RBC Distribution Width SD 39.8 fl (35.1-43.9); Red Blood Count 5.42 M/mm3 (4.2-5.4); White Blood Count 9.2 K/mm3 (4.4-11.0)
[2024-02-11 17:54] LABS: AST(SGOT) 20 U/L (15-37); Alanine Aminotransfer ALT/SGPT 45 U/L (13-56); Alkaline Phosphatase 114 U/L (45-117); Anion Gap 7 (5-15); BUN 19 mg/dL (7-18); BUN/Creat Ratio 23.9 RATIO (10-20); Calcium,Total 9.9 mg/dL (8.5-10.1); Chloride 109 mmol/L (98-107); EST Glomerular Filtration Rate 79 mL/min (>60); Est Glom Filt Rate - Afr Amer 96 mL/min (>60); Globulin 3.9 g/dL (2.2-4.2); Glucose 74 mg/dL (74-106); Lipase 21 U/L (13-75); Potassium 3.7 mmol/L (3.5-5.1); Protein, Total 7.9 g/dL (6.4-8.2); Sodium Level 139 mmol/L (136-145)
== END | disposition home or self-care (01) ==
LOC: MFPLAB 16:31
PROVIDERS: PCP Family Medicine; Referring Provider Family Medicine; Visit Provider Family Medicine
DX: R10.9 Unspecified abdominal pain (principal)
CPT/HCPCS: 36415; 80053; 83690; 85025

== ENCOUNTER → 2024-02-16 | Outpatient (CLI) | payer OTHER, SELFPAY ==
--- NOTE | 2024-02-16 08:21 | US_ITS ---
STUDY: ABDOMINAL ULTRASOUND - RIGHT UPPER QUADRANT REASON FOR VISIT: Female, 53 years old RUQ PAIN TECHNIQUE: Ultrasound evaluation of the right upper quadrant was performed with real-time and static hagan-scale imaging. TECHNICAL QUALITY: Adequate. COMPARISON: 01/10/2022 FINDINGS: Liver: The liver measures 17.1 cm. There is increased echogenicity consistent with fatty infiltration. The bile ducts are within normal limits. There is hepatic color flow. The direction of portal flow is hepatopetal. There is no demonstrated mass lesion. Gallbladder: Normal distended gallbladder. The gallbladder wall measures 2 mm. There is a negative sonographic Forde''s sign. There is no pericholecystic fluid. There are no gallstones. Common Bile Duct (C.B.D.): The common bile duct measures 3 mm. Pancreas: Normal size of the head, body and tail of the pancreas. There is normal echogenicity of the pancreas. There is no demonstrated pancreatic mass or cyst. Right Kidney: Normal size of the right kidney. The right kidney measures 10.7 cm. Normal renal cortex. The right cortex measures 1.4 cm. There is no demonstrated renal mass or cyst. There is no right hydronephrosis. US/Abdomen Limited IMPRESSION: Fatty infiltration of the liver. Electronically Signed: Tony Ramírez MD at 14:08 EST ,
== END | disposition home or self-care (01) ==
LOC: US 08:20
PROVIDERS: PCP Family Medicine; Referring Provider Family Medicine; Visit Provider Family Medicine
DX: R10.11 Right upper quadrant pain (principal)
CPT/HCPCS: 76705

== ENCOUNTER 2024-04-02 15:56 | Emergency (ER) | payer OTHER, SELFPAY ==
[2024-04-02 15:57] VITALS: BP 111/82; PULSE 124; RESP 18; TEMP 37.2; O2SAT 92; BMI 37.5
--- NOTE | 2024-04-02 16:18 | RAD_ITS ---
PROCEDURE: CHEST PA AND LATERAL REASON FOR EXAM: Cough, fever, bilateral rhonchi TECHNIQUE: Frontal and lateral views of the chest. COMPARISON: 06/26/2022 FINDINGS: The lungs are clear. No pleural effusion or pneumothorax. The cardiomediastinal silhouette is unremarkable. No acute osseous or soft tissue abnormality. RAD/Chest PA and Lateral IMPRESSION: 1. No acute cardiopulmonary process. Reading Location: [facility]
[2024-04-02] MEDS: 0.9% Normal Saline (1000mL) 1,000 ML 1000 ML IV (16:32)
--- NOTE | 2024-04-02 16:34 | EDS_ITS ---
HPI History of Present Illness Chief Complaint: Nausea/Vomiting Detail of Chief Complaint: Patient been sick with respiratory symptoms for several days. Complains of Informant: patient Onset/Context/Timing Onset: Hours (In reference to the nausea and vomiting) and Days (With respect to the respiratory symptoms.) Context: Sudden Onset (Abrupt onset of nausea vomiting since 1300.) Timing: Continuous (Upper respiratory symptoms with cough and congestion) and Waxes and wanes Quality: Cough, shortness of breath, now complaining of nausea and vomiting Location: Respiratory and GI Current Severity: Moderate Maximum Severity: Moderate Worsened by: Nothing Relieved by: Nothing Associated Symptoms Associated Symptoms: Fever to 102.0 ?F Narrative Narrative: Is a 53-year-old woman. She quit smoking 2.5 years ago. She states she was seen at urgent care and told she may have pneumonia. She was prescribed doxycycline. She does endorse fever up to 102 ?F. She does endorse myalgias arthralgias, congestion, postnasal drainage sore throat. She denies photophobia, neck pain or neck stiffness. Her cough is nonproductive. She states abruptly at 1300 she began to vomit. She states she has vomited 15 times. She does endorse thirst and dry mouth. She also endorses lightheadedness with standing. Prior similar symptoms: Yes Recent Illness/Hospitalization: No [facility] Medical History COPD (chronic obstructive pulmonary disease) Home Medications ?Medication ?Instructions ?Recorded ?Last Taken ?Type cholecalciferol (vitamin D3) 25 2,000 unit PO DAILY Unknown History mcg (1,000 unit) tablet nortriptyline 25 mg capsule 25 mg PO QHS 09/13/1909/16 History rosuvastatin 5 mg tablet 5 mg PO DAILY 09/13/1904/01 History doxycycline monohydrate 100 mg 100 mg PO BID #14 caps 06/24/21 04/02/24 Rx capsule metoprolol succinate 25 mg 25 mg PO DAILY 06/24/21 Unk nown History tablet,extended release 24 hr prednisone 20 mg tablet 60 mg (3 x 20 mg) PO DAILY # 15 04/02/24 Unknown Rx TABLETS Allergy/AdvReac Type Severity Reaction Status Date / Time morphine Allergy Itching Verified 04/02/24 16:09 oxycodone Allergy Itching Verified 04/02/24 16:09 Surgical History H/O: hysterectomy Social History Smoking Status: Former smoker ROS ROS ED Constitutional Constitutional ED: Reports chills and fever(s); Denies subjective, sweats or weight loss Eyes Eyes: Denies blurry vision, change in vision or diplopia ENT ENT ED: Reports rhinorrhea and sore throat; Denies ear pain Cardiovascular Cardiovascular: Denies chest pain, orthopnea, palpitations, paroxysmal nocturnal dyspnea or racing heartbeat Respiratory/Chest Respiratory/Chest: Reports cough, dyspnea and dyspnea on exertion; Denies orthopnea, paroxysmal nocturnal dyspnea or sputum Gastrointestinal Gastrointestinal: Reports nausea and vomiting; Denies abdominal pain, constipation or diarrhea Genitourinary Genitourinary ED: Denies dysuria, hematuria or urinary frequency Musculoskeletal Musculoskeletal: Reports arthralgias and myalgias; Denies back pain or neck pain Integumentary Denies rash Neurologic Neurologic: Reports weakness; Denies headache(s) or paresthesias Endocrine Endocrinology: Denies cold intolerance or heat intolerance Hematologic/Lymphatic Hematologic/Lymphatic: Reports systems reviewed and no addt'l complaints, except as documented EXAM Physical Exam Const Vital Signs: 04/02/24 15:57 04/02/24 16:49 04/02/24 17:26 Temperature 99.0 F 98.9 F Temperature Source Oral Oral Pulse Rate 124 H 118 H 139 H Respiratory Rate 18 22 H 24 H Respiratory Pattern Tachypnea Blood Pressure 111/82 H 134/66 H Blood Pressure Mean 91 88 Pulse Ox 92 95 Oxygen Delivery Method Room Air Room Air 04/02/24 18:07 04/02/24 18:07 Temperature 99.3 F H Temperature Source Oral Pulse Rate 137 H 137 H Respiratory Rate 24 H 24 H Respiratory Pattern Blood Pressure 155/83 H 155/83 H Blood Pressure Mean 107 107 Pulse Ox 94 94 Oxygen Delivery Method Room Air Room Air Positive well nourished and well developed Constitutional Narrative: BMI is 37.5. Patient appears ill. Patient having trouble speaking because her mouth is dry and her tongue is sticking to the roof of her mouth. General Appearance ED: well developed, NAD and pallor; Negative for cyanotic or diaphoretic HEENT HEENT Narrative: Head is atraumatic normocephalic. Ears normal. Nares patent. Posterior pharynx is normal. Eyes PERRL and EOMs intact bilaterally General Eye ED: Negative for pale conjunctiva or scleral icterus Neck no lymphadenopathy and supple Chest Wall inspection of chest normal and palpation of chest normal Resp normal respiratory effort and No clear to auscultation bilaterally Auscultation: rales bilateral base, rhonchi throughout and wheezes scattered wheezes Cardio regular rhythm, S1 normal heart sound, S2 normal heart sound and no murmurs Rate: tachycardic GI normal to inspection, nondistended, normoactive bowel sounds, non-tender, non- distended and no masses; Negative for hepatosplenomegaly Auscultation: normoactive bowel sounds Back/Spine no CVA tenderness Thoracic Spine / Upper Back: Negative for thoracic spinal tenderness Lumbar Spine / Lower Back: Negative for lumbar spinal tenderness Extremity normal to inspection General Extremety ED: Negative for edema or tenderness General Extremity: Negative for edema Neuro oriented x3, CN's II-XII intact bilaterally and no sensory deficits noted Sensorium / Orientation: alert Motor Exam: strength 5/5 throughout Psych mental status grossly normal Skin no rashes or lesions noted and no wounds General Skin Exam: pallor; Negative for elasticity normal or jaundice Sepsis Attestation Sepsis Alert: Yes Sepsis Attestation: Sepsis Ruled Out Date exam was performed: 04/02/24 MDM MDM MDM Narrative Medical decision making narrative: Patient appears ill. She is clinically dehydrated. 1 L normal saline was obtained. BMP obtained to assess electrolytes, CO2 anion gap and renal f unction. Chest x-ray was obtained because of respiratory complaints and abnormal oscillatory findings. CMP and lactate to assess for endorgan dysfunction. History & Record Review Additional record(s) reviewed:: Prior outpatient record (Documented under the prior ED visit portion of the EMR) and Prior ED visit (Last seen June 2021 for ma laise and fatigue. August 2019 for headache and records from outside facility March 2019 for osteoarthritis and sinus.) Lab Data Attestation: I reviewed the patient's lab results. Lab results narrative: CBC is remarkable for slight shift. Comprehensive metabolic panel reveals slight elevation in glucose of 157 with a normal CO2 anion gap. Lactate is 2. Patient has no evidence of endorgan dysfunction. Rapid antigen positive for influenza A. Labs: Laboratory Results - last 24 hr 04/02/24 16:15 WBC 8.8 RBC 5.10 Hgb 13.9 Hct 42.5 MCV 83.3 MCH 27.3 MCHC 32.7 RDW Std Deviation 39.5 RDW Coeff of Anu 13.1 Plt Count 216 MPV 9.5 Immature Gran % (Auto) 0.800 Neut % (Auto) 87.5 H Lymph % (Auto) 4.2 L [place] % (Auto) 6.5 Eos % (Auto) 0.5 Baso % (Auto) 0.5 Absolute Neuts (auto) 7.7 Absolute Lymphs (auto) 0.37 L Nucleated RBC % 0 Sodium 135 L Potassium 3.6 Chloride 102 Carbon Dioxide 23.0 Anion Gap 10 BUN 13 Creatinine 0.84 Estim Creat Clear Calc 83.48 Est GFR (MDRD) Af Amer 90 Est GFR (MDRD) Non-Af 75 BUN/Creatinine Ratio 15.5 Glucose 157 H Lactic Acid 2.0 Calcium 8.8 Total Bilirubin 0.40 AST 25 ALT 52 Alkaline Phosphatase 108 Total Protein 7.6 Albumin 3.7 Globulin 3.9 Albumin/Globulin Ratio 0.9 Radiography Chest X-Ray - ED: 2 View, Read by ED Physician (Interpreted by me at 1727. No acute pathology. Patient's inspiratory volume is limited. Therefore suboptimal film. But there is no obvious infiltrate. There is no evidence of effusion.), Normal, Heart, Lungs, Mediastinum, Bony Structures and No Acute Disease Diagnostic Testing: Clinical Impression(s) from Imaging Studies Chest X-Ray 04/02/24 16:18 IMPRESSION: 1. No acute cardiopulmonary process. Reading Location: [facility] Treatment and Re-Evaluation :: Patient was reassessed at 1900. She still has some slight wheezing. Will discharge with prescription for prednisone. She has been struck to use her albuterol every 2-4 hours while awake for the next 2 to 5 days. She was told to be sick for another 6 to 7 days. She was given a work excuse since she is contagious. Discharge Plan Triage Chief Complaint: Nausea/Vomiting ED Provider: Eduardo Rojo Dx/Rx/DC Orders Clinical Impression: Influenza A, Asthma exacerbation in COPD, Acute bronchospasm, SIRS (systemic inflammatory response syndrome), Dehydration, mild, Nondiabetic hyperglycemia Instructions: ED Influenza (Adult) Prescriptions: New prednisone 20 mg tablet 60 mg PO DAILY Qty: 15 0RF No Action nortriptyline 25 MG capsule 25 mg PO QHS rosuvastatin 5 MG tablet 5 mg PO DAILY cholecalciferol (vitamin D3) 1,000 UNIT tablet 2,000 unit PO DAILY metoprolol succinate 25 mg tablet extended release 24 hr 25 mg PO DAILY Patient Comments: TAKE 1 TABLET BY MOUTH EVERY DAY doxycycline monohydrate 100 mg capsule 100 mg PO BID Qty: 14 0RF Primary Care Provider: Aidan Ramsey Referrals: Aidan Ramsey MD [Primary Care Provider] - 3-5 Days if not improving Activity Restrictions/Additional Instructions: 2 puffs of your albuterol inhaler every 2-4 hours while awake for the next 3 to 5 days. Use your inhaler every 4-6 hours thereafter. Take prednisone as prescribed until gone Print Language: Luxembourger Disposition Disposition: Home, Self Care
[2024-04-02] MEDS: Albuterol 2.5 MG/3 ML VIAL.NEB. INHALATION ×3 (16:37)
[2024-04-02] MEDS: Ipratropium/Albuterol Sulfate 3 ML AMPUL.NEB INHALATION (16:37)
[2024-04-02 16:46] LABS: Absolute Lymphocyte Count 0.37 X10^3/uL (0.83-4.51); Absolute Neutrophil Count 7.7 X10^3/uL (2.0-7.7); Basophil# 0.04 X10^3/uL; Basophil% 0.5 % (0-1); Eosinophil# 0.04 X10^3/uL; Eosinophils% 0.5 % (0-5); Hematocrit 42.5 % (37-47); Hemoglobin 13.9 g/dL (12.0-15.0); Lymphocyte # 0.37 X10^3/ul (0.83-4.51); Lymphocyte % 4.2 % (19-41); Mean Corp Hgb Conc 32.7 g/dL (32-36); Mean Corpuscular Hgb 27.3 pg (27.0-32.0); Mean Corpuscular Volume 83.3 fL (81-99); Mean Platelet Vol. 9.5 fl (6.2-12.0); Monocyte# 0.57 X10^3/uL; Monocyte% 6.5 % (0-10); NRBC Flagged by Analyzer 0 % (0-5); Neutrophil # 7.67 X10^3/uL (2.7-7.7); Neutrophil % 87.5 % (47-70); POSITIVE DIFFERENTIAL YES; Platelet Count 216 K/mm3 (150-450); RBC Distribution Width CV 13.1 % (11.6-14.6); RBC Distribution Width SD 39.5 fl (35.1-43.9); White Blood Count 8.8 K/mm3 (4.4-11.0)
[2024-04-02 16:49] VITALS: PULSE 118; RESP 22
[2024-04-02 17:00] LABS: ALB/GLOB Ratio 0.9 RATIO (0.9-2.4); AST(SGOT) 25 U/L (15-37); Alanine Aminotransfer ALT/SGPT 52 U/L (13-56); Albumin, Serum 3.7 g/dL (3.2-5.0); Alkaline Phosphatase 108 U/L (45-117); Anion Gap 10 (5-15); BUN 13 mg/dL (7-18); BUN/Creat Ratio 15.5 RATIO (10-20); Calcium,Total 8.8 mg/dL (8.5-10.1); Chloride 102 mmol/L (98-107); Creatinine, Serum 0.84 mg/dL (0.55-1.02); EST Glomerular Filtration Rate 75 mL/min (>60); Est Glom Filt Rate - Afr Amer 90 mL/min (>60); Estimated Creatinine Clearance 83.48 ml/min; Globulin 3.9 g/dL (2.2-4.2); Glucose 157 mg/dL (74-106); Potassium 3.6 mmol/L (3.5-5.1); Protein, Total 7.6 g/dL (6.4-8.2); Sodium Level 135 mmol/L (136-145)
[2024-04-02] MEDS: Ondansetron 4 MG/2 ML Vial IV (17:09)
--- NOTE | 2024-04-02 17:19 | ED.RN ---
Critical Lactic Acid of 2.0. Dr. Rojo notified
[2024-04-02 17:26] VITALS: BP 134/66; PULSE 139; RESP 24; TEMP 37.2; O2SAT 95
[2024-04-02 18:07] VITALS: BP 155/83; PULSE 137; RESP 24; TEMP 37.4; O2SAT 94
[2024-04-02 19:21] VITALS: BP 155/83; PULSE 137; RESP 24; TEMP 37.4; O2SAT 94
[2024-04-02 20:39] LABS: Reflex Lactate? Y
== END 2024-04-02 19:29 | disposition home or self-care (01) ==
PROVIDERS: Emergency Provider Emergency Medicine; PCP Family Medicine; Visit Provider Emergency Medicine
DX: J10.1 Influenza due to other identified influenza virus with other respiratory manifestations (principal); R65.10 Systemic inflammatory response syndrome (SIRS) of non-infectious origin without acute organ dysfunction; J44.1 Chronic obstructive pulmonary disease with (acute) exacerbation; E86.0 Dehydration; J98.01 Acute bronchospasm; R73.9 Hyperglycemia, unspecified; Z87.891 Personal history of nicotine dependence
CPT/HCPCS: 71046; 80053; 83605; 85025; 87631; 94640; 96361; 96374; 99284; A4216; J2405

== ENCOUNTER → 2024-08-04 | Outpatient (CLI) | payer BC, SELFPAY ==
--- NOTE | 2024-08-04 17:52 | CT_ITS ---
PROCEDURE: LOW DOSE CT LUNG SCREENING 08/04/2024 REASON FOR EXAM: HX NICOTINE DEPENDENCE TECHNIQUE: Low Dose CT Lung screening without contrast. Coronal and Sagittal reconstruction series were provided. One or more dose reduction techniques were used (e.g., Automated exposure control, adjustment of the mA and/or kV according to patient size, use of iterative reconstruction technique). REFERENCE LINK: [employer] Lung-RADS RADIATION DOSE SUMMARY: CTDlvol: 4.02 mGy DLP: 120.34 mGycm COMPARISON: Prior study dated July 28, 2023. FINDINGS: PULMONARY NODULES: (Only nodules >3mm are reported) Nodules described below are on series 1 unless otherwise specified. Pulmonary Nodules: No suspicious pulmonary nodule seen. Hardware:None Lymph Nodes:No suspicious lymph nodes are present Heart and Vasculature:The heart is nonenlarged. Coronary Artery Calcifications: Minimal coronary artery calcification. Lungs and Airways: Stable mild degree of peribronchial thickening. Mild scarring at the lung bases. Pleura:Unremarkable Upper Abdomen:Unremarkable Bones:Degenerative changes of the thoracic spine. CT/Low Dose CT Lung Screening IMPRESSION: Stable examination Coronary artery calcification (CAC) is is present Lung-RADS Category: 2 BENIGN (BASED ON IMAGING FEATURES OR INDOLENT BEHAVIOR). RECOMMEND 12-MONTH SCREENING LDCT. Other Significant Findings: None. Reading Location: [facility]
== END | disposition home or self-care (01) ==
LOC: CT 17:50
PROVIDERS: PCP Family Medicine; Referring Provider Internal Medicine Pulmonary Disease; Visit Provider Internal Medicine Pulmonary Disease
DX: Z87.891 Personal history of nicotine dependence (principal)
CPT/HCPCS: 71271

== ENCOUNTER → 2024-09-07 | Outpatient (CLI) | payer BC, SELFPAY ==
[2024-09-07 15:11] LABS: Hematocrit 43.1 % (37-47); Hemoglobin 13.9 g/dL (12.0-15.0); Immature Granulocytes Count 0.020 X10^3/uL (0.0-0.0); Mean Corp Hgb Conc 32.3 g/dL (32-36); Mean Corpuscular Volume 86.0 fL (81-99); Mean Platelet Vol. 9.9 fl (6.2-12.0); NRBC Flagged by Analyzer 0 % (0-5); Platelet Count 282 K/mm3 (150-450); RBC Distribution Width CV 13.2 % (11.6-14.6); RBC Distribution Width SD 41.1 fl (35.1-43.9); Red Blood Count 5.01 M/mm3 (4.2-5.4); White Blood Count 7.5 K/mm3 (4.4-11.0)
[2024-09-07 15:55] LABS: AST(SGOT) 31 U/L (<=31); Alanine Aminotransfer ALT/SGPT 60 U/L (<=34); Albumin, Serum 4.3 g/dL (3.5-5.0); Alkaline Phosphatase 108 U/L (35-104); Anion Gap 12 (5-15); BUN 14 mg/dL (4-19); BUN/Creat Ratio 17.1 RATIO (10-20); Calcium,Total 9.7 mg/dL (7.6-11.0); Carbon Dioxide 26.0 mmol/L (21.0-32.0); Chloride 103 mmol/L (98-108); Globulin 3.1 g/dL (2.2-4.2); Glucose 111 mg/dL (70-99); Lipase 20 U/L (13-75); Potassium 3.6 mmol/L (3.3-5.1)
== END | disposition home or self-care (01) ==
LOC: MFPLAB 12:09
PROVIDERS: PCP Family Medicine; Referring Provider Family Medicine; Visit Provider Family Medicine
DX: R10.9 Unspecified abdominal pain (principal); R53.83 Other fatigue
CPT/HCPCS: 36415; 80053; 83690; 84443; 85025

== ENCOUNTER → 2024-09-23 | Outpatient (CLI) | payer BC, SELFPAY ==
--- NOTE | 2024-09-23 09:43 | NM_ITS ---
PROCEDURE: HEPATOBILLIARY IMG W/PHARM INT N/A REASON FOR EXAM: ABDOMINAL PAIN TECHNIQUE: Intravenous Choletec with planar imaging of the abdomen. Following this, gallbladder ejection fraction was evaluated with cholecystokinin administration. RADIOPHARMACEUTICAL: 5.4 mCi technetium 99 M mebrofenin. Also, intravenous administration of 2 mcg sincalide intravenous over 15 minutes, for the gallbladder ejection fraction component of the examination. COMPARISON: None. FINDINGS: There is satisfactory hepatic uptake and excretion seen. Normal gallbladder visualization with the gallbladder identified by 15 minutes. Small bowel activity seen by the 30 minute film. Following cholecystokinin administration, a gallbladder ejection fraction was calculated at 84%, at the 20 minute timeframe. NM/Hepatobilliary Img w/Pharm Int IMPRESSION: 1. Normal hepatobiliary scan. 2. Normal gallbladder ejection fraction of 84%. Reading Location: [place] [id number]
--- OUTSIDE RECORDS SUMMARY | 2024-09-23 12:08 | XMS RPT_ITS | CCD ---
Author Organization [facility] Care Team Providers Care Customer Complaint Clerk Name Role Phone Aidan Pinto MD Primary Care Provider EVELYN COOPER Referring Unavailable EVELYN COOPER Attending Unavailable AIDAN PINTO Primary Care Unavailable AIDAN PINTO Primary Care Unavailable EVELYN COOPER Referring Unavailable EVELYN COOPER Attending Unavailable Aidan Pinto MD Primary Care Provider SHALONDA TORO Referring Unavailable AIDAN PINTO Primary Care Unavailable AIDAN PINTO Primary Care Unavailable Dr. Aidan Pinto MD Primary Care Provider Dr. French Moya MD, V Attending Provider Griffin DANIELSON, Dr. French Silveira Referring Provider Dr. Aidan Pinto MD Attending Provider Braulio DANIELSON, Dr. Bermudez Referring Provider Sukhjinder Navarrete Attending Unavailable Sukhjinder Navarrete Referring Unavailable Braulio, Aidan Primary Care Unavailable Braulio, Aidan Primary Care Unavailable Braulio, Aidan Attending Unavailable Pinto, Aidan Referring Unavailable Pinto, Aidan Primary Care Unavailable French Moya V Attending Unavailable SibiliaFrench V Referring Unavailable Pinto, Aidan Primary Care Unavailable Pinto, Aidan Attending Unavailable Pinto, Aidan Referring Unavailable Pinto, Aidan Primary Care Unavailable Pinto, Aidan Attending Unavailable Pinto, Aidan Referring Unavailable Pinto, Aidan Primary Care Unavailable Rojo, Eduardo Attending Unavailable Pinto, Aidan Attending Unavailable Pinto, Aidan Referring Unavailable Pinto, Aidan Primary Care Unavailable Allergies Allergy Classification Reported Allergen(s) Allergy Type Date of Onset Reaction(s) Facility (9 sources) Morphine Drug Allergy 06-24-2021 [facility] (9 sources) oxyCODONE Drug Allergy 06-24-2021 Itching [facility] (4 sources) Acetaminophen / HYDROcodone; Translations: [HYDROCODONE-ACETA MINOPHEN] Drug Allergy 01-30-2014 Itching [facility] (4 sources) buPROPion; Translations: [BUPROPION HCL] Drug Allergy 12-06-2008 [facility] (4 sources) Citalopram; Translations: [CITALOPRAM HYDROBROMIDE] Drug Allergy 12-06-2008 [facility] (1 source) Morphine Drug Allergy 04-02-2024 [facility] (1 source) oxyCODONE Drug Allergy 04-02-2024 [facility] Medications Current Medications Medication Drug Class(es) Dates Sig (Normalized) Sig (Original) benzonatate 100 mg oral capsule (3 sources) Non-narcotic Antitussive Start: 01-24-2019 benzonatate (TESSALON PERLE) 100 mg capsule Take 1-2 capsules tid prn 30 capsule 01/24/2019 Active Comment on above: Take 1-2 capsules ti d prn busPIRone hydrochloride 5 mg oral tablet (3 sources) Start: 05-22-2017 take 1 tablet by mouth every eight hours as needed busPIRone (BUSPAR) 5 mg tablet Take 1 tablet by mouth three times daily as needed. 30 tablet 3 05/22/2017 Active Comment on above: Take 1 tablet by [facility] three times daily as needed. cephalexin 500 mg oral capsule (1 source) Cephalosporin Antibacterial Start: 08-11-2022 End: 08-16-2022 take 1 capsule by mouth twice daily cephALEXin (KEFLEX) 500 mg capsule Take 1 capsule by mouth twice daily for 5 days. 10 capsule 0 08/11/2022 08/16/2022 Active Comment on above: Take 1 capsule by [facility] twice daily for 5 days. cholecalciferol 0.025 mg oral tablet (9 sources) Vitamin D Start: 09-13-2019 take 2 tablets by mouth once daily Cholecalciferol (Vitamin D3) 1,000 UNIT tablet Active 2000 U PO DAILY September 13, 2019 12:00am Start: 09-13-2019 take 2000 [IU] by [facility] once daily Cholecalciferol (Vitamin D3) Active 2000 UNIT PO DAILY September 13, 2019 12:00am doxycycline monohydrate 100 mg oral tablet (10 sources) Tetracycline-class Drug Start: 04-01-2024 End: 04-08-2024 take 1 tablet by mouth twice daily doxycycline monohydrate 100 mg tablet Indications: Lower resp. tract infection Take 1 tablet by mouth two times a day for 7 days. 14 tablet 04/01/2024 04/08/2024 Active Start: 06-24-2021 take 1 capsule by mo [facility] twice daily Doxycycline Monohydrate 100 mg capsule Active 100 mg PO TWICE A DAY 14 0 June 24, 2021 12:00am 30 actuat fluticasone furoate 0.1 mg/actuat / umeclidinium 0.0625 mg/actuat / vilanterol 0.025 mg/actuat dry powder inhaler (2 sources) Anticholinergic, Corticosteroid, beta2-Adrenergic Agonist Start: 03-31-2024 take 1 puff(s) by inhalation once daily TRELEGY ELLIPTA 100-62.5-25 mcg inhalation powder Inhale 1 Puff as instructed once daily. 03/31/2024 Active 24 hr metoprolol succinate 25 mg extended release oral tablet (12 sources) beta-Adrenergic Tai Start: 06-24-2021 take 1 tablet by mouth once daily Metoprolol Succinate 25 mg tablet extended release 24 hr Active 25 mg PO DAILY June 24, 2021 12:00am Comment on above: Take 25 mg by mouth once daily. mupirocin 0.02 mg/mg topical ointment (1 source) RNA Synthetase Inhibitor Antibacterial Start: 08-11-2022 End: 08-16-2022 mupirocin (BACTROBAN) 2 % ointment Apply to affected area twice daily for 5 days. 30 g 0 08/11/2022 08/16/2022 Active Comment on above: Apply to affected ar ea twice daily for 5 days. nortriptyline 50 mg oral capsule (12 sources) Tricyclic Antidepressant Start: 08-11-2022 nortriptyline (PAMELOR) 50 mg capsule 08/11/2022 Active Start: 09-13-2019 take 1 capsule by [facility] at bedtime Nortriptyline 25 MG capsule Active 25 mg PO AT BEDTIME September 13, 2019 12:00am omeprazole 20 mg delayed release oral capsule (3 sources) Proton Pump Inhibitor Start: 06-05-2022 take 1 capsule by mouth once daily omeprazole (PRILOSEC) 20 mg capsule Take 20 mg by mouth once daily. 06/05/2022 Active Comment on above: Take 20 mg by mouth once daily. ondansetron 4 mg disintegrating oral tablet (2 sources) Serotonin-3 Receptor Antagonist Start: 04-02-2024 take 1 tablet by mouth every eight hours as needed for nausea Ondansetron 4 mg tablet,disintegrat ing Active 4 mg PO EVERY 8 HOURS NEEDED as needed for Nausea 6 0 April 02, 2024 1:00am predniSONE 20 mg oral tablet (2 sources) Start: 04-02-2024 take 3 tablets by mouth once daily Prednisone 20 mg tablet Active 60 mg PO DAILY 15 0 April 02, 2024 1:00am rosuvastatin calcium 5 mg oral tablet (12 sources) HMG-CoA Reductase Inhibitor Start: 09-13-2019 take 1 tablet by mouth once daily Rosuvastatin 5 MG tablet Active 5 mg PO DAILY September 13, 2019 12:00am Comment on above: Take by mouth. Problems Active Problems Problem Classification Problem Date Documented Da te Episodic/Chronic Abdominal pain (5 sources) Epigastric pain; Translations: [Epigastric pain] Onset: 03-17-2024 Resolved: 05-08-2016 05-08-2016 Episodic Cardiac dysrhythmias (20 sources) Sinus tachycardia; Translations: [Tachycardia, unspecified] Onset: 11-19-2007 Resolved: 05-08-2016 09-14-2019 Episodic Chronic obstructive pulmonary disease and bronchiectasis (2 sources) Acute exacerbation of chronic obstructive airways disease with asthma; Translations: [Chronic obstructive pulmonary disease with (acute) exacerbation] 04-10-2024 Chronic Diabetes mellitus without complication (2 sources) Non-diabetic hyperglycemia; Translations: [Hyperglycemia, unspecified] 04-10-2024 Episodic Disorders of lipid metabolism (3 sources) Hyperlipidemia; Translations: [Hyperlipidemia, unspecified] Onset: 10-28-2007 10-28-2007 Chronic Essential hypertension (9 sources) Hypertensive disorder; Translations: [Essential (primary) hypertension] 09-14-2019 Chronic Fluid and electrolyte disorders (2 sources) Mild dehydration; Translations: [Dehydration] 04-10-2024 Episodic Gastroduodenal ulcer (except hemorrhage) (2 sources) Peptic ulcer; Translations: [Peptic ulcer, site unspecified, unspecified as acute or chronic, without hemorrhage or perforation] Onset: 07-20-2007 Resolved: 05-08-2016 05-08-2016 Chronic Headache; including migraine (9 sources) Headache; Translations: [Headache] 09-14-2019 Episodic Influenza (2 sources) Influenza due to Influenza A virus; Translations: [Influenza due to other identified influenza virus with other respiratory manifestations] 04-10-2024 Episodic Malaise and fatigue (9 sources) Malaise and fatigue; Translations: [Other malaise] 07-02-2021 Episodic Mood disorders (3 sources) Dysthymia; Translations: [Dysthymic disorder] Onset: 10-28-2007 10-28-2007 Chronic Nausea and vomiting (1 source) Nausea with vomiting, unspecified; Translations: [Nausea with vomiting, unspecified] Onset: 06-29-2024 Episodic Open wounds of extremities (1 source) Unspecified open wound of right index finger with damage to nail, initial encounter; Translations: [Open wound of finger(s), without mention of complication] Episodic Other and unspecified benign neoplasm (3 sources) Benign neoplasm of stomach; 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] 12-19-2005 Episodic Other circulatory disease (1 source) Wheeze - rhonchi; Translations: [Other specified symptoms and signs involving the circulatory and respiratory systems] 04-01-2024 Episodic Other connective tissue disease (2 sources) Impingement syndrome of right shoulder; Translations: [Impingement syndrome of right shoulder] Onset: 03-26-2023 Episodic Other injuries and conditions due to external causes (2 sources) Systemic inflammatory response syndrome; Translations: [Systemic inflammatory response syndrome (SIRS) of non-infectious origin without acute organ dysfunction] 04-10-2024 Episodic Other liver diseases (1 source) Fatty (change of) liver, not elsewhere classified; Translations: [Fatty (change of) liver, not elsewhere classified] Onset: 09-21-2024 Chronic Other lower respiratory disease (1 source) Lower respiratory tract infection; Translations: [Unspecified acute lower respiratory infection] 04-01-2024 Episodic Other upper respiratory disease (2 sources) Acute bronchospasm; Translations: [Acute bronchospasm] 04-10-2024 Episodic Other upper respiratory infections (1 source) Acute upper respiratory infection; Translations: [Acute upper respiratory infection, unspecified] 04-01-2024 Episodic Pneumonia (except that caused by tuberculosis or sexually transmitted disease) (9 sources) Pneumonia; Translations: [Pneumonia, unspecified organism] 07-02-2021 Episodic Screening and history of mental health and substance abuse codes (1 source) Personal history of nicotine dependence; Translations: [Personal history of nicotine dependence] Onset: 08-10-2024 Episodic Past or Other Problems Problem Classification Problem Date Documented Da te Episodic/Chronic Esophageal disorders (2 sources) Esophagitis; Translations: [Esophagitis, unspecified] Onset: 08-11-2005 Resolved: 05-08-2016 05-08-2016 Episodic Gastritis and duodenitis (2 sources) Acute gastritis; Translations: [Acute gastritis without bleeding] Onset: 08-11-2005 Resolved: 05-08-2016 05-08-2016 Episodic Other and unspecified benign neoplasm (3 sources) Neuroma of foot; Translations: [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, including hip] Onset: 05-13-2010 05-13-2010 Episodic Other connective tissue disease (2 sources) Soft tissue lesion of shoulder region; Translations: [Bursopathy, unspecified] Onset: 10-28-2007 Resolved: 05-08-2016 05-08-2016 Episodic Other non-traumatic joint disorders (2 sources) Shoulder pain; Translations: [Pain in unspecified shoulder] Onset: 09-11-2014 Resolved: 07-09-2016 07-09-2016 Episodic Residual codes; unclassified (3 sources) Insomnia; Translations: [Insomnia, unspecified] Onset: 11-19-2007 11-19-2007 Episodic Spondylosis; intervertebral disc disorders; other back problems (4 sources) Lumbar spondylosis; Translations: [Spondylosis without myelopathy or radiculopathy, lumbar region] Onset: 09-11-2014 Resolved: 07-09-2016 07-09-2016 Chronic Results Test Name Value Interpretation Reference Range Facility Absolute lymphocyte countOrd ered By: Aidan Pinto on 09-07-2024 Lymphocytes Auto (Unsp spec) [#/Vol] 1.71 10*3/uL 0.83-4.51 [facility] Absolute neutrophil countOrd ered By: Aidan Pinto on 09-07-2024 Neutrophils (Bld) [#/Vol] 5.0 10*3/uL 2.0-7.7 [facility] Anion gap in Serum or Plasma Ordered By: Aidan Pinto on 09-07-2024 Anion gap [Moles/Vol] 12 mmol/L 5-15 [facility] Automated lymphocyte count a s percentage of total leukocytesOrdered By: Aidan Pinto on 09-07-2024 Lymphocytes/100 WBC Auto (Unsp spec) 22.7 % 19- [facility] BUN/creatinine ratioOrdered By: Aidan Pinto on 09-07-2024 Urea nitrogen/Creatinine [Mass ratio] 17.1 mg/mg 10-20 [facility] Basophil percentageOrdered B y: Aidan Pinto on 09-07-2024 Basophils/100 WBC (Bld) 0.5 % 0-1 [facility] Bilirubin, totalOrdered By: Aidan Pinto on 09-07-2024 Bilirubin [Mass/Vol] 0.33 mg/dL 0.00-1.30 [facility] CBC W/Diff, Automatedon 08-23 Absolute Lymph 1.71 X10 3/uL Normal 0.83-4.51 [facility] Comment on above: Performed By: #### L [id number], [id number], L100.0100, [id number] #### [facility] [address] [place], [address] Absolute Neut 5.0 X10 3/uL Normal 2.0-7.7 [facility] Comment on above: Performed By: #### L [id number], [id number], L100.0100, [id number] #### [facility] [address] [place], [address] Basophils/100 WBC (Bld) 0.5 % Normal 0-1 [facility] Comment on above: Performed By: #### L [id number], [id number], L100.0100, [id number] #### [facility] [address] [place], [address] Eosinophils/100 WBC (Bld) 3.3 % Normal 0-5 [facility] Comment on above: Performed By: #### L [id number], [id number], L100.0100, [id number] #### [facility] [address] [place], [address] Erythrocyte distribution width (RBC) [Ratio] 13.2 % Normal 11.6-14.6 [facility] Comment on above: Performed By: #### L [id number], [id number], L100.0100, [id number] #### [facility] [address] [place], [address] Hematocrit (Bld) [Volume fraction] 43.1 % Normal 37-47 [facility] Comment on above: Performed By: #### L [id number], [id number], L100.0100, [id number] #### [facility] [address] [place], [address] Hemoglobin (Bld) [Mass/Vol] 13.9 g/dL Normal 12.0-15.0 [facility] Comment on above: Performed By: #### L [id number], [id number], L100.0100, [id number] #### [facility] [address] [place], [address] IG% 0.300 Normal 0.0-0.9 [facility] Comment on above: Result Comment: IG% - Immature Granulocytes (promyelocytes, myelocytes and metamyelocytes) > 1% indicates that a LEFT SHIFT is Present. Performed By: #### L [id number], [id number], L100.0100, [id number] #### [facility] [address] [place], [address] Lymphocytes/100 WBC (Bld) 22.7 % Normal 19-41 [facility] Comment on above: Performed By: #### L [id number], [id number], L100.0100, [id number] #### [facility] [address] [place], [address] MCH (RBC) [Entitic mass] 27.7 pg Normal 27.0-32.0 [facility] Comment on above: Performed By: #### L [id number], [id number], L100.0100, [id number] #### [facility] [address] [place], [address] MCHC (RBC) [Mass/Vol] 32.3 g/dL Normal 32-36 [facility] Comment on above: Performed By: #### L [id number], [id number], L100.0100, [id number] #### [facility] [address] [place], [address] MCV (RBC) [Entitic vol] 86.0 fL Normal 81-99 [facility] Comment on above: Performed By: #### L [id number], [id number], L100.0100, [id number] #### [facility] [address] [place], [address] Monocytes/100 WBC (Bld) 7.0 % Normal 0-10 [facility] Comment on above: Performed By: #### L [id number], [id number], L100.0100, [id number] #### [facility] [address] [place], [address] Neutrophils/100 WBC (Bld) 66.2 % Normal 47-70 [facility] Comment on above: Performed By: #### L [id number], [id number], L100.0100, [id number] #### [facility] [address] [place], [address] Nucleated RBC (Bld) [#/Vol] 0 10*3/uL Normal 0-5 [facility] Comment on above: Performed By: #### L [id number], [id number], L100.0100, [id number] #### [facility] [address] [place], [address] Platelet mean volume (Bld) [Entitic vol] 9.9 fL Normal 6.2-12.0 [facility] Comment on above: Performed By: #### L [id number], [id number], L100.0100, [id number] #### [facility] [address] [place], [address] Platelets (Bld) [#/Vol] 282 10*3/uL Normal 150-450 [facility] Comment on above: Performed By: #### L [id number], [id number], L100.0100, [id number] #### [facility] [address] [place], [address] RBC (Bld) [#/Vol] 5.01 10*6/uL Normal 4.2-5.4 [facility] Comment on above: Performed By: #### L [id number], [id number], L100.0100, [id number] #### [facility] [address] [place], [address] RDW SD 41.1 fl Normal 35.1-43.9 [facility] Comment on above: Performed By: #### L [id number], [id number], L100.0100, [id number] #### [facility] [address] [place], [address] WBC (Bld) [#/Vol] 7.5 10*3/uL Normal 4.4-11.0 [facility] Comment on above: Performed By: #### L [id number], [id number], L100.0100, [id number] #### [facility] [address] [place], [address] Carbon dioxide, total [Moles /volume] in Central venous bloodOrdered By: Aidan Pinto on 09-07-2024 CO2 [Moles/Vol] 26.0 mmol/L 21.0-32.0 [facility] Chloride assayOrdered By: Luis Daniel Pinto on 09-07-2024 Chloride [Moles/Vol] 103 mmol/L 98-108 [facility] Comprehensive Metabolic Prof ilon 09-07-2024 Albumin [Mass/Vol] 4.3 g/dL Normal 3.5-5.0 [facility] Comment on above: Performed By: #### L [id number], [id number], L100.0100, [id number] #### [facility] [address] [place], [address] Albumin/Globulin [Mass ratio] 1.4 {ratio} Normal 0.9-2.4 [facility] Comment on above: Performed By: #### L [id number], [id number], L100.0100, [id number] #### [facility] [address] [place], [address] ALK PHOS 108 U/L High 35-104 [facility] Comment on above: Performed By: #### L [id number], [id number], L100.0100, [id number] #### [facility] [address] [place], [address] ALT [Catalytic activity/Vol] 60 U/L High <=34 [facility] Comment on above: Performed By: #### L [id number], [id number], L100.0100, [id number] #### [facility] [address] [place], [address] AST [Catalytic activity/Vol] 31 U/L Normal <=31 [facility] Comment on above: Performed By: #### L [id number], [id number], L100.0100, [id number] #### [facility] [address] [place], [address] Bilirubin [Mass/Vol] 0.33 mg/dL Normal 0.00-1.30 [facility] Comment on above: Performed By: #### L [id number], [id number], L100.0100, [id number] #### [facility] [address] [place], [address] BUN/CRE 17.1 RATIO Normal 10-20 [facility] Comment on above: Performed By: #### L [id number], [id number], L100.0100, [id number] #### [facility] [address] [place], [address] Calcium [Mass/Vol] 9.7 mg/dL Normal 7.6-11.0 [facility] Comment on above: Performed By: #### L [id number], [id number], L100.0100, [id number] #### [facility] [address] [place], [address] Chloride [Moles/Vol] 103 mmol/L Normal 98-108 [facility] Comment on above: Performed By: #### L [id number], [id number], L100.0100, [id number] #### [facility] [address] [place], [address] CO2 [Moles/Vol] 26.0 mmol/L Normal 21.0-32.0 [facility] Comment on above: Performed By: #### L [id number], [id number], L100.0100, [id number] #### [facility] [address] [place], [address] Creatinine [Mass/Vol] 0.84 mg/dL Normal 0.70-1.20 [facility] Comment on above: Performed By: #### L [id number], [id number], L100.0100, [id number] #### [facility] [address] [place], [address] GAP 12 Normal 5-15 [facility] Comment on above: Performed By: #### L [id number], [id number], L100.0100, [id number] #### [facility] [address] [place], [address] GFR/1.73 sq M.predicted among non-blacks MDRD (S/P/Bld) [Vol rate/Area] 82 mL/min/{1.73_m2} Normal >60 [facility] Comment on above: Result Comment: mL/m in/1.73m2 CKD-EPI Creatinine Equation (2020) Performed By: #### L [id number], [id number], L100.0100, [id number] #### [facility] [address] [place], [address] Globulin (S) [Mass/Vol] 3.1 g/dL Normal 2.2-4.2 [facility] Comment on above: Performed By: #### L [id number], [id number], L100.0100, [id number] #### [facility] [address] [place], [address] Glucose [Mass/Vol] 111 mg/dL High 70-99 [facility] Comment on above: Performed By: #### L [id number], [id number], L100.0100, [id number] #### [facility] [address] [place], [address] Potassium [Moles/Vol] 3.6 mmol/L Normal 3.3-5.1 [facility] Comment on above: Performed By: #### L [id number], [id number], L100.0100, [id number] #### [facility] [address] [place], [address] Sodium [Moles/Vol] 141 mmol/L Normal 133-145 [facility] Comment on above: Performed By: #### L [id number], [id number], L100.0100, [id number] #### [facility] [address] [place], [address] T PROT 7.3 g/dL Normal 5.9-8.4 [facility] Comment on above: Performed By: #### L [id number], [id number], L100.0100, [id number] #### [facility] [address] [place], [address] Urea nitrogen [Mass/Vol] 14 mg/dL Normal 4-19 [facility] Comment on above: Performed By: #### L [id number], [id number], L100.0100, [id number] #### [facility] [address] [place], [address] Eosinophil percentageOrdered By: Aidan Pinto on 09-07-2024 Eosinophils/100 WBC (Bld) 3.3 % 0-5 [facility] Erythrocyte distribution wid th ratioOrdered By: Aidan Pinto on 09-07-2024 Erythrocyte distribution width (RBC) [Ratio] 13.2 % 11.6-14.6 [facility] Erythrocyte distribution wid th standard deviationOrdered By: Aidan Pinto on 09-07-2024 Erythrocyte distribution width (RBC) [Ratio] 41.1 fl 35.1-43.9 [facility] Glomerular filtration rate ( GFR) estimation/1.73 sq m using serum, plasma, or whole bOrdered By: Aidan Pinto on 09-07-2024 GFR/1.73 sq M.predicted among non-blacks MDRD (S/P/Bld) [Vol rate/Area] 82 mL/min/{1.73_m2} >60 [facility] Comment on above: mL/min/1.73m2 CKD-EP I Creatinine Equation (2020) Hematocrit Auto (Bld) [Volum e fraction]Ordered By: Aidan Pinto on 09-07-2024 Hematocrit (Bld) [Volume fraction] 43.1 % 37-47 [facility] Hemoglobin measurementOrdere d By: Aidan Pinto on 09-07-2024 Hemoglobin (Bld) [Mass/Vol] 13.9 g/dL 12.0-15.0 [facility] Immature granulocytes/100 WB C Auto (Bld)Ordered By: Aidan Pinto on 09-07-2024 Immature granulocytes/100 WBC (Bld) 0.300 % 0.0-0.9 [facility] Comment on above: IG% - Immature Granu locytes (promyelocytes, myelocytes and metamyelocytes) > 1% indicates that a LEFT SHIFT is Present. Laboratory - Chemistry and C hemistry - challengeOrdered By: Aidan Pinto on 09-07-2024 AST [Catalytic activity/Vol] 31 U/L <32 [facility] Lipaseon 09-07-2024 Lipase [Catalytic activity/Vol] 20 U/L Normal 13-75 [facility] Comment on above: Result Comment: Maribel de la rosa note: LIPASE revised reference range effective 22. New Lipase methodology. Expected to produce lower values than the previous assay method. NEW Reference Range: 13 - 75 U/L Performed By: #### L 501.9520, L501.2450, L100.0100, L500.4050 #### [facility] [address] [place] [address], [address] Lipase measurementOrdered By : Aidan Pinto on 09-07-2024 Lipase [Catalytic activity/Vol] 20 U/L 13-75 [facility] Comment on above: Please note:LIPASE r evised reference range effective 22. New Lipase methodology. Expected to produce lower values than the previous assay method. NEW Reference Range: 13 - 75 U/L MCV (mean corpuscular volume ) determinationOrdered By: Aidan Pinto on 09-07-2024 MCV (RBC) [Entitic vol] 86.0 fL 81-99 [facility] Mean corpuscular hemoglobin (MCH) determinationOrdered By: Aidan Pinto on 09-07-2024 MCH (RBC) [Entitic mass] 27.7 pg 27.0-32.0 [facility] Mean corpuscular hemoglobin concentration (MCHC) determinationOrdered By: Aidan Pinto on 09-07-2024 MCHC (RBC) [Mass/Vol] 32.3 g/dL 32-36 [facility] Mean platelet volume determi nationOrdered By: Aidan Pinto on 09-07-2024 Platelet mean volume (Bld) [Entitic vol] 9.9 fL 6.2-12.0 [facility] Monocyte percentageOrdered B y: Aidan Pinto on 09-07-2024 Monocytes/100 WBC (Bld) 7.0 % 0-10 [facility] Neutrophil percentageOrdered By: Aidan Pinto on 09-07-2024 Neutrophils/100 WBC (Bld) 66.2 % 47-70 [facility] Nucleated red blood cell per centageOrdered By: Aidan Pinto on 09-07-2024 Nucleated RBC/100 WBC (Bld) [Ratio] 0 % 0-5 [facility] Platelet countOrdered By: Luis Daniel Pinto on 09-07-2024 Platelets (Bld) [#/Vol] 282 10*3/uL 150-450 [facility] Potassium measurement (mass/ volume)Ordered By: Aidan Pinto on 09-07-2024 Potassium (Unsp spec) [Mass/Vol] 3.6 mmol/L 3.3-5.1 [facility] RBC Auto (Bld) [#/Vol]Ordere d By: Aidan Pinto on 09-07-2024 RBC (Bld) [#/Vol] 5.01 10*6/uL 4.2-5.4 [facility] Serum creatinine measurement (mass/volume)Ordered By: Aidan Pinto on 09-07-2024 Creatinine [Mass/Vol] 0.84 mg/dL 0.70-1.20 [facility] Serum globulin measurementOr dered By: Aidan Pinto on 09-07-2024 Globulin (S) [Mass/Vol] 3.1 g/dL 2.2-4.2 [facility] Serum glucose measurement (m ass/volume)Ordered By: Aidan Pinto on 09-07-2024 Glucose [Mass/Vol] 111 mg/dL High 70-99 [facility] Serum or plasma alanine rowan otransferase (ALT) measurementOrdered By: Aidan Pinto on 09-07-2024 ALT [Catalytic activity/Vol] 60 U/L High <35 [facility] Serum or plasma albumin shannan urement (mass/volume)Ordered By: Aidan Pinto on 09-07-2024 Albumin [Mass/Vol] 4.3 g/dL 3.5-5.0 [facility] Serum or plasma albumin/glob ulin mass ratioOrdered By: Aidan Pinto on 09-07-2024 Albumin/Globulin [Mass ratio] 1.4 {ratio} 0.9-2.4 [facility] Serum or plasma alkaline mani sphatase measurementOrdered By: Aidan Pinto on 09-07-2024 ALP [Catalytic activity/Vol] 108 U/L High 35-104 [facility] Serum or plasma calcium shannan urement (mass/volume)Ordered By: Aidan Pinto on 09-07-2024 Calcium [Mass/Vol] 9.7 mg/dL 7.6-11.0 [facility] Serum or plasma urea nitroge n measurement (mass/volume)Ordered By: Aidan Pinto on 09-07-2024 Urea nitrogen [Mass/Vol] 14 mg/dL 4-19 [facility] Sodium levelOrdered By: Aidan Pinto on 09-07-2024 Sodium [Moles/Vol] 141 mmol/L 133-145 [facility] TSH DL <= 0.005 mIU/L QnOrde red By: Aidan Pinto on 09-07-2024 TSH Qn 1.400 uIU/mL 0.300-4.200 [facility] Thyroid Stim Hormone (TSH)on 09-07-2024 TSH 1.400 uIU/mL Normal 0.300-4.200 [facility] Comment on above: Performed By: #### L 501.9519, L501.2450, L100.0100, L500.4050 #### [facility] [address] [place], [place], [id number] Total proteinOrdered By: Adore Pinto on 09-07-2024 Protein [Mass/Vol] 7.3 g/dL 5.9-8.4 [facility] White blood cell (WBC) count Ordered By: Aidan Pinto on 09-07-2024 WBC (Bld) [#/Vol] 7.5 10*3/uL 4.4-11.0 [facility] Low Dose CT Lung Screeningon 08-04-[address] Lung Screening [facility] Imaging Services [address] [place], [place] [address] Low Dose CT Lung Screening MR#: [id number] Acct: [id number] Name: BELIA ORELLANA Rep #: [id number] : 1970 F 54 From: Melchor duval MD PCP: Dr. Aidan Pinto MD Status: REG CLI Study: Low Dose CT Lung Screening Date of Exam: 08/04 Exam# [id number] Ordering Dr: French Moya MD PROCEDURE: LOW DOSE CT LUNG SCREENING 08/04/2024 REASON FOR EXAM: HX NICOTINE DEPENDENCE TECHNIQUE: Low Dose CT Lung screening without contrast. Coronal and Sagittal reconstruction series were provided. One or more dose reduction techniques were used (e.g., Automated exposure control, adjustment of the mA and/or kV according to patient size, use of iterative reconstruction technique). REFERENCE LINK: [employer] Lung-RADS RADIATION DOSE SUMMARY: CTDlvol: 4.02 mGy DLP: 120.34 mGycm COMPARISON: Prior study dated July 28, 2023. FINDINGS: PULMONARY NODULES: (Only nodules >3mm are reported) Nodules described below are on series 1 unless otherwise specified. Pulmonary Nodules: No suspicious pulmonary nodule seen. Hardware:None Lymph Nodes:No suspicious lymph nodes are present Heart and Vasculature:The heart is nonenlarged. Coronary Artery Calcifications: Minimal coronary artery calcification. Lungs and Airways: Stable mild degree of peribronchial thickening. Mild scarring at the lung bases. Pleura:Unremarkable Upper Abdomen:Unremarkable Bones:Degenerative changes of the thoracic spine. CT/Low Dose CT Lung Screening IMPRESSION: Stable examination Coronary artery calcification (CAC) is is present Lung-RADS Category: 2 BENIGN (BASED ON IMAGING FEATURES OR INDOLENT BEHAVIOR). RECOMMEND 12-MONTH SCREENING LDCT. Other Significant Findings: None. Reading Location: [id number] CC: Dr. Aidan Pinto MD; Dr. French Moya MD Home Improvement Contractor: Signed Normal [facility] CBC W/Diff, Automatedon 02-0 Absolute Lymph 0.37 X10 3/uL Low 0.83-4.51 [facility] Comment on above: Performed By: #### L 501.9520, L501.2450, L100.0100, L500.4050 #### [facility] [address] [place], [address] Absolute Neut 7.7 X10 3/uL Normal 2.0-7.7 [facility] Comment on above: Performed By: #### L 501.9520, L501.2450, L100.0100, L500.4050 #### [facility] [address] [place], [address] Basophils/100 WBC (Bld) 0.5 % Normal 0-1 [facility] Comment on above: Performed By: #### L 501.9520, L501.2450, L100.0100, L500.4050 #### [facility] [address] [place], [address] Eosinophils/100 WBC (Bld) 0.5 % Normal 0-5 [facility] Comment on above: Performed By: #### L 501.9520, L501.2450, L100.0100, L500.4050 #### [facility] [address] [place], [address] Erythrocyte distribution width (RBC) [Ratio] 13.1 % Normal 11.6-14.6 [facility] Comment on above: Performed By: #### L 501.9520, L501.2450, L100.0100, L500.4050 #### [facility] [address] [place], [address] Hematocrit (Bld) [Volume fraction] 42.5 % Normal 37-47 [facility] Comment on above: Performed By: #### L 501.9520, L501.2450, L100.0100, L500.4050 #### [facility] [address] [place], [address] Hemoglobin (Bld) [Mass/Vol] 13.9 g/dL Normal 12.0-15.0 [facility] Comment on above: Performed By: #### L 501.9520, L501.2450, L100.0100, L500.4050 #### [facility] [address] [place], [address] IG% 0.800 Normal 0.0-0.9 [facility] Comment on above: Result Comment: IG% - Immature Granulocytes (promyelocytes, myelocytes and metamyelocytes) > 1% indicates that a LEFT SHIFT is Present. Performed By: #### L 501.9520, L501.2450, L100.0100, L500.4050 #### [facility] [address] [place], [address] Lymphocytes/100 WBC (Bld) 4.2 % Low 19-41 [facility] Comment on above: Performed By: #### L 501.9520, L501.2450, L100.0100, L500.4050 #### [facility] [address] [place], [address] MCH (RBC) [Entitic mass] 27.3 pg Normal 27.0-32.0 [facility] Comment on above: Performed By: #### L 501.9520, L501.2450, L100.0100, L500.4050 #### [facility] [address] [place], [address] MCHC (RBC) [Mass/Vol] 32.7 g/dL Normal 32-36 [facility] Comment on above: Performed By: #### L 501.9520, L501.2450, L100.0100, L500.4050 #### [facility] [address] [place], [address] MCV (RBC) [Entitic vol] 83.3 fL Normal 81-99 [facility] Comment on above: Performed By: #### L 501.9520, L501.2450, L100.0100, L500.4050 #### [facility] [address] [place], [address] Monocytes/100 WBC (Bld) 6.5 % Normal 0-10 [facility] Comment on above: Performed By: #### L 501.9520, L501.2450, L100.0100, L500.4050 #### [facility] [address] [place], [address] Neutrophils/100 WBC (Bld) 87.5 % High 47-70 [facility] Comment on above: Performed By: #### L 501.9520, L501.2450, L100.0100, L500.4050 #### [facility] [address] [place], [address] Nucleated RBC (Bld) [#/Vol] 0 10*3/uL Normal 0-5 [facility] Comment on above: Performed By: #### L 501.9520, L501.2450, L100.0100, L500.4050 #### [facility] [address] [place], [address] Platelet mean volume (Bld) [Entitic vol] 9.5 fL Normal 6.2-12.0 [facility] Comment on above: Performed By: #### L 501.9520, L501.2450, L100.0100, L500.4050 #### [facility] [address] [place], [address] Platelets (Bld) [#/Vol] 216 10*3/uL Normal 150-450 [facility] Comment on above: Performed By: #### L 501.9520, L501.2450, L100.0100, L500.4050 #### [facility] [address] [place], [address] RBC (Bld) [#/Vol] 5.10 10*6/uL Normal 4.2-5.4 [facility] Comment on above: Performed By: #### L 501.9520, L501.2450, L100.0100, L500.4050 #### [facility] [address] [place], [address] RDW SD 39.5 fl Normal 35.1-43.9 [facility] Comment on above: Performed By: #### L 501.9520, L501.2450, L100.0100, L500.4050 #### [facility] [address] [place], [address] WBC (Bld) [#/Vol] 8.8 10*3/uL Normal 4.4-11.0 [facility] Comment on above: Performed By: #### L 501.9520, L501.2450, L100.0100, L500.4050 #### [facility] [address] [place], [address] Chest PA and Lateralon 04-02 Chest PA and Lateral [facility] Imaging Services [address] [place] [address] Chest PA and Lateral MR#: [id number] Acct: [id number] Name: BELIA ORELLANA Annabel Rep #: [id number] : 1970 F 53 From: Elaine Herrera MD PCP: Dr. Aidan Pinto MD Status: [facility] ER Study: Chest PA and Lateral Date of Exam: 04/02/24 Exam# [id number] Ordering Dr: Eduardo Rojo MD PROCEDURE: CHEST PA AND LATERAL REASON FOR EXAM: Cough, fever, bilateral rhonchi TECHNIQUE: Frontal and lateral views of the chest. COMPARISON: 06/26/2022 FINDINGS: The lungs are clear. No pleural effusion or pneumothorax. The cardiomediastinal silhouette is unremarkable. No acute osseous or soft tissue abnormality. RAD/Chest PA and Lateral IMPRESSION: 1. No acute cardiopulmonary process. Reading Location: [facility] CC: Dr. Aidan Pinto MD; Dr. Eduardo Rojo MD Home Improvement Contractor: Signed Normal [facility] Comprehensive Metabolic Prof ilon 04-02-2024 Albumin [Mass/Vol] 3.7 g/dL Normal 3.2-5.0 [facility] Comment on above: Performed By: #### L 501.9520, L501.2450, L100.0100, L500.4050 #### [facility] [address] [place], [address] Albumin/Globulin [Mass ratio] 0.9 {ratio} Normal 0.9-2.4 [facility] Comment on above: Performed By: #### L 501.9520, L501.2450, L100.0100, L500.4050 #### [facility] [address] [place], [address] ALK P 108 U/L Normal 45-117 [facility] Comment on above: Performed By: #### L 501.9520, L501.2450, L100.0100, L500.4050 #### [facility] [address] [place], [address] ALT [Catalytic activity/Vol] 52 U/L Normal 13-56 [facility] Comment on above: Performed By: #### L 501.9520, L501.2450, L100.0100, L500.4050 #### [facility] [address] [place], [address] AST [Catalytic activity/Vol] 25 U/L Normal 15-37 [facility] Comment on above: Performed By: #### L 501.9520, L501.2450, L100.0100, L500.4050 #### [facility] [address] [place], [address] Bilirubin [Mass/Vol] 0.40 mg/dL Normal 0.20-1.00 [facility] Comment on above: Result Comment: For patients on eltrombopag therapy, use of Dimension [place] TBIL is not recommended. Performed By: #### L 501.9520, L501.2450, L100.0100, L500.4050 #### [facility] [address] [place], [address] BUN/CRE 15.5 RATIO Normal 10-20 [facility] Comment on above: Performed By: #### L 501.9520, L501.2450, L100.0100, L500.4050 #### [facility] [address] [place], [address] CA,Total 8.8 mg/dL Normal 8.5-10.1 [facility] Comment on above: Performed By: #### L 501.9520, L501.2450, L100.0100, L500.4050 #### [facility] [address] [place], [address] Chloride [Moles/Vol] 102 mmol/L Normal 98-107 [facility] Comment on above: Performed By: #### L 501.9520, L501.2450, L100.0100, L500.4050 #### [facility] [address] [place], [address] CO2 [Moles/Vol] 23.0 mmol/L Normal 21.0-32.0 [facility] Comment on above: Performed By: #### L 501.9520, L501.2450, L100.0100, L500.4050 #### [facility] [address] [place], [address] Creatinine [Mass/Vol] 0.84 mg/dL Normal 0.55-1.02 [facility] Comment on above: Result Comment: The validity of the calculated GFR GFRAA in patients over 70 years has not been determined. Clinical correlation is essential. Performed By: #### L 501.9520, L501.2450, L100.0100, L500.4050 #### [facility] [address] [place], [address] ECRCL 83.48 ml/min Normal [facility] Comment on above: Performed By: #### L 501.9520, L501.2450, L100.0100, L500.4050 #### [facility] [address] [place], [address] EST GFR - AA 90 mL/min Normal >60 [facility] Comment on above: Result Comment: Afri can Citizen Of [place] GFR Calc Performed By: #### L 501.9520, L501.2450, L100.0100, L500.4050 #### [facility] [address] [place], [address] GAP 10 Normal 5-15 [facility] Comment on above: Performed By: #### L 501.9520, L501.2450, L100.0100, L500.4050 #### [facility] [address] [place], [address] GFR/1.73 sq M.predicted among non-blacks MDRD (S/P/Bld) [Vol rate/Area] 75 mL/min/{1.73_m2} Normal >60 [facility] Comment on above: Result Comment: Non- GFR Calc Performed By: #### L 501.9520, L501.2450, L100.0100, L500.4050 #### [facility] [address] [place], [address] Globulin (S) [Mass/Vol] 3.9 g/dL Normal 2.2-4.2 [facility] Comment on above: Performed By: #### L 501.9520, L501.2450, L100.0100, L500.4050 #### [facility] [address] [place], [address] Glucose [Mass/Vol] 157 mg/dL High 74-106 [facility] Comment on above: Result Comment: Fast ing Glucose result greater than or equal to 126 mg/dL suggests DIABETES MELLITUS per A.D.A. criteria. Performed By: #### L 501.9520, L501.2450, L100.0100, L500.4050 #### [facility] [address] [place], [address] Potassium [Moles/Vol] 3.6 mmol/L Normal 3.5-5.1 [facility] Comment on above: Performed By: #### L 501.9520, L501.2450, L100.0100, L500.4050 #### [facility] [address] [place], [address] Sodium [Moles/Vol] 135 mmol/L Low 136-145 [facility] Comment on above: Performed By: #### L 501.9520, L501.2450, L100.0100, L500.4050 #### [facility] [address] [place], [address] T PROT 7.6 g/dL Normal 6.4-8.2 [facility] Comment on above: Performed By: #### L 501.9520, L501.2450, L100.0100, L500.4050 #### [facility] [address] [place], [address] Urea nitrogen [Mass/Vol] 13 mg/dL Normal 7-18 [facility] Comment on above: Performed By: #### L 501.9520, L501.2450, L100.0100, L500.4050 #### [facility] [address] [place], [address] Emergency Department Summary on 04-02-2024 Emergency Department Summary [facility] Medical Records Department [address] [place] [address] Emergency Department Summary 04/02/24 MR#: [id number] Acct: [id number] Name: BELIA ORELLANA Rep #: [id number] : 1970 53 From: Eduardo Rojo MD PCP: Dr. Aidan Pinto MD Status:REG ER Location: ED HPI History of Present Illness Chief Complaint: Nausea/Vomiting Detail of Chief Complaint: Patient been sick with respiratory symptoms for several days. Complains of Informant: patient Onset/Context/Timing Onset: Hours (In reference to the nausea and vomiting) and Days (With respect to the respiratory symptoms.) Context: Sudden Onset (Abrupt onset of nausea vomiting since 1300.) Timing: Continuous (Upper respiratory symptoms with cough and congestion) and Waxes and wanes Quality: Cough, shortness of breath, now complaining of nausea and vomiting Location: Respiratory and GI Current Severity: Moderate Maximum Severity: Moderate Worsened by: Nothing Relieved by: Nothing Associated Symptoms Associated Symptoms: Fever to 102.0 ???F Narrative Narrative: Is a 53-year-old woman. She quit smoking 2.5 years ago. She states she was seen at urgent care and told she may have pneumonia. She was prescribed doxycycline. She does endorse fever up to 102 ???F. She does endorse myalgias arthralgias, congestion, postnasal drainage sore throat. She denies photophobia, neck pain or neck stiffness. Her cough is nonproductive. She states abruptly at 1300 she began to vomit. She states she has vomited 15 times. She does endorse thirst and dry mouth. She also endorses lightheadedness with standing. Prior similar symptoms: Yes Recent Illness/Hospitalizati on: No PFSH PFSH Medical History COPD (chronic obstructive pulmonary disease) Home Medications ???Medication ???Instructions ???Recorded ???Last Taken ???Type cholecalciferol (vitamin D3) 25 2,000 unit PO DAILY 09/13/19 Unkno wn History mcg (1,000 unit) tablet nortriptyline 25 mg capsule 25 mg PO QHS 09/13/19 04/01/24 His tory rosuvastatin 5 mg tablet 5 mg PO DAILY 09/13/19 04/01/24 Hi story doxycycline monohydrate 100 mg 100 mg PO BID #14 caps 06/24/21 Rx capsule metoprolol succinate 25 mg 25 mg PO DAILY 06/24/21 Unknown Hi story tablet,extended release 24 hr prednisone 20 mg tablet 60 mg (3 x 20 mg) PO DAILY #15 10/17 Unknown Rx TABLETS Allergy/AdvReac Type Severity Reaction Status Date / Time morphine Allergy Itching Verified 04/02/24 16:09 oxycodone Allergy Itching Verified 04/02/24 16:09 Surgical History H/O: hysterectomy Social History Smoking Status: Former smoker ROS ROS ED Constitutional Constitutional ED: Reports chills and fever(s); Denies subjective, sweats or weight loss Eyes Eyes: Denies blurry vision, change in vision or diplopia ENT ENT ED: Reports rhinorrhea and sore throat; Denies ear pain Cardiovascular Cardiovascular: Denies chest pain, orthopnea, palpitations, paroxysmal nocturnal dyspnea or racing heartbeat Respiratory/Chest Respiratory/Chest: Reports cough, dyspnea and dyspnea on exertion; Denies orthopnea, paroxysmal nocturnal dyspnea or sputum Gastrointestinal Gastrointestinal: Reports nausea and vomiting; Denies abdominal pain, constipation or diarrhea Genitourinary Genitourinary ED: Denies dysuria, hematuria or urinary frequency Musculoskeletal Musculoskeletal: Reports arthralgias and myalgias; Denies back pain or neck pain Integumentary Denies rash Neurologic Neurologic: Reports weakness; Denies headache(s) or paresthesias Endocrine Endocrinology: Denies cold intolerance or heat intolerance Hematologic/Lymphatic Hematologic/Lymphatic : Reports systems reviewed and no addt'l complaints, except as documented EXAM Physical Exam Const Vital Signs: 04/02/24 15:57 04/02/24 16:49 04/02/24 17:26 Temperature 99.0 F 98.9 F Temperature Source Oral Oral Pulse Rate 124 H 118 H 139 H Respiratory Rate 18 22 H 24 H Respiratory Pattern Tachypnea Blood Pressure 111/82 H 134/66 H Blood Pressure Mean 91 88 Pulse Ox 92 95 Oxygen Delivery Method Room Air Room Air 04/02/24 18:07 04/02/24 18:07 Temperature 99.3 F H Temperature Source Oral Pulse Rate 137 H 137 H Respiratory Rate 24 H 24 H Respiratory Pattern Blood Pressure 155/83 H 155/83 H Blood Pressure Mean 107 107 Pulse Ox 94 94 Oxygen Delivery Method Room Air Room Air Positive well nourished and well developed Constitutional Narrative: BMI is 37.5. Patient appears ill. Patient having trouble speaking because her mouth is dry and her tongue is sticking to the roof of her (more content not included)... Normal [facility] Influenzae A AND B, Serumon 04-02-2024 INFLUENZA A Ab Normal Neg:<1:8 [facility] Comment on above: Result Comment: Canc elled via OM: Incorrect ordering MD Performed By: #### L 3400.2100 #### [facility] [address] [facility] [place], [address] INFLUENZA B Ab Normal Neg:<1:8 [facility] Comment on above: Result Comment: Canc elled via OM: Incorrect ordering MD Performed By: #### L 3400.2100 #### [facility] [address] [facility] [place], [place], [id number] Lactic Acidon 04-02-2024 Lactate [Moles/Vol] 2.0 mmol/L Normal 0.4-1.9 [facility] Comment on above: Order Comment: Y Result Comment: Crit ical Result(s) Called at: 17:16:04 04/02/2024 by: RAISA SANTIAGO TO JD DAN. Results read back by same. Performed By: #### L 501.9520, L501.2450, L100.0100, L500.4050 #### [facility] [address] [place], [address] M100.678on 04-02-2024 M100.678 CRITICAL VALUE PATEL D TO [facility] 04/02/24 1837 Charles Valero. RESULTS READ BACK BY SAME . Pending SARS-CoV-2 (COVID 19) Negative INFLUENZA A A Positive A INFLUENZA B Negative RSV PCR Negative INFLUENZAE A Normal [facility] Comment on above: Performed By: #### M 100.678 #### [facility] [address] [place], [address] CNOVon 04-01-2024 CNOV Office Visit (UCTR ) BELIA ORELLANA ([id number]) 1970 F Date Time Provider Department 04/01/24 3:15 PM SHALONDA TORO [facility] During your visit today, we recorded the following information about you: Temperature Pulse Respiration Blood pressure 100.6 degrees 103/minute 22/minute 139/84 Weight 98 kg Shalonda Toro APRN.SENIOR LICENSING MANAGER 04/01/2024 5:03 PM Signed Subjective HPI HPI Belia Hopkinsgordon is a 53 year old female who presents today for CC of cough for 1 month, fever, congestion for 1 day. Has tried otc medication for relief. Symptoms are worsened by nothing. Risk factors sick exposures at work. Nonsmoker. Hx of copd. .Patient presents with: Fever: Runny nose, cough, chest congestion, sore throat, headache, body aches, x 1 day PAST MEDICAL HISTORY Diagnosis Date Abdominal pain, epigastric Acute gastritis without mention of hemorrhage Acute gastritis without mention of hemorrhage Benign neoplasm of stomach Esophagitis, unspecified Insomnia, unspecified Neuroma of foot 05/13/2010 Tachycardia 12/23/2010 PAST SURGICAL HISTORY Procedure Laterality Date DELIVERY ONLY , low cervical DILATION AND CURETTAGE DXAND/THER NONOBSTETRIC Dilation AND curettage x 2 and 1 was with a scope EGD REMOVAL TUMOR POLYP/OTHER LESION SNARE TECH 12/19/05 EGD TRANSORAL BIOPSY SINGLE/MULTIPLE 08/11/05 EGD TRANSORAL BIOPSY SINGLE/MULTIPLE 08/04/06 Pt had a special bx done ESOPHAGOGASTRODUODENO SCOPY TRANSORAL DIAGNOSTIC 10/29/2005 EGD PAST SURGICAL HISTORY OF partial hysterectomy PAST SURGICAL HISTORY OF carpal tunnel right hand ALLERGIES Celexa [Citalopram Hydrobromide], Vicodin [Hydrocodone-Acetamin ophen], and Wellbutrin [Bupropion Hcl] MEDICATIONS TRELEGY ELLIPTA 100-62.5-25 mcg inhalation powder Inhale 1 Puff as instructed once daily. nortriptyline (PAMELOR) 50 mg capsule rosuvastatin (CRESTOR) 5 mg tablet Take by mouth. metoprolol succinate ER (TOPROL XL) 25 mg 24 hr tablet Take 25 mg by mouth once daily. omeprazole (PRILOSEC) 20 mg capsule Take 20 mg by mouth once daily. benzonatate (TESSALON PERLE) 100 mg capsule Take 1-2 capsules tid prn (Patient not taking: Reported on 02/03/2019) busPIRone (BUSPAR) 5 mg tablet Take 1 tablet by mouth three times daily as needed. (Patient not taking: Reported on 08/11/2022) FAMILY HISTORY Problem Relation Age of Onset other (stomach cancer [Other]) Mother Breast Cancer Maternal Aunt Hypertension Father from sepsis from intestinal obstruction other (tachycardia [Other]) Brother Social History Tobacco Use Smoking status: Every Day Current packs/day: 0.00 Average packs/day: 0.5 packs/day for 16.0 years (8.0 ttl pk-yrs) Types: Cigarettes Start date: 01/15/1990 Last attempt to quit: 01/15/2006 Years since quittin.2 Smokeless tobacco: Never Tobacco comments: Quit for 8 years, Started smoking again 1 year ago. Substance Use Topics Alcohol use: Yes Comment: rare Drug use: No Review of Systems Constitutional: Positive for chills, fever and malaise/fatigue. HENT: Positive for congestion. Negative for ear pain, nosebleeds and sore throat. Respiratory: Positive for cough. Negative for shortness of breath and wheezing. Musculoskeletal: Negative for neck pain. Skin: Negative for itching and rash. Objective Blood pressure 139/84, pulse 103, temperature (!) 38.1 ?C (100.6 ?F), resp. rate 22, weight 98 kg (216 lb 0.8 oz), SpO2 99%. Physical Exam Constitutional: General: She is not in acute distress. Appearance: She is not toxic-appearing or diaphoretic. HENT: Head: Normocephalic and atraumatic. Cardiovascular: Rate and Rhythm: Normal rate and regular rhythm. Heart sounds: Normal heart sounds, S1 normal and S2 normal. Pulmonary: Effort: Pulmonary effort is normal. Breath sounds: Examination of the left-lower field reveals rhonchi. Rhonchi present. No decreased breath sounds, wheezing or rales. Lymphadenopathy: Cervical: No cervical adenopathy. Right cervical: No superficial cervical adenopathy. Left cervical: No superficial cervical adenopathy. Neurological: Mental Status: She is alert and oriented to person, place, and time. Gait: Gait is intact. ASSESSMENT/PLAN: 1. Lower resp. tract infection - ICD9: 519.8, ICD10: J22 (primary diagnosis) - Discussed supportive care, - Limit exposure to smoke and other inhaled irritants - Discussed possible red flags and when to seek medical attention - Follow up in 3-5 days or sooner if no better or worse -If you experience chest pain/shortness of breath go to ER - DOXYCYCLINE MONOHYDRATE 100 MG TABLET 2. URI, acute - ICD9: 465.9, ICD10: J06.9 - Discussed viral etiology and rationale for treatment. - Symptomatic treatment with prn analgesia - Supportive care with fluids and rest - INFLUENZA AANDB MOLECULAR (POC) 3. Rhonchi - I (more content not included)... Normal [facility] INFLUENZA A&B MOLECULAR (POC )on 04-01-2024 Flu A (POCT) Negative Negative [facility] Flu B (POCT) Negative Negative [facility] Procedural Control Valid [facility] Location:[facility], [address], [place], [address] [facility] POINT OF CARE [facility] XR CHEST 2V FRONTAL/LATon XR CHEST 2V FRONTAL/LAT * * *Final Repor t* * * DATE OF EXAM: Apr 01 2024 4:02PM WOX 5291 - XR CHEST 2V FRONTAL/LAT / PROCEDURE REASON: Rhonchi * * * * Physician Interpretation * * * * EXAMINATION: CHEST RADIOGRAPH (2 VIEW FRONTAL and LATERAL) CLINICAL HISTORY: Rhonchi MQ: XC2_6 EXAM DATE/TIME: 04/01/2024 4:02 PM COMPARISON: 02/03/2019 RESULT: Lines, tubes, and devices: None. Lungs and pleura: No consolidation. No lung mass. No pleural effusion. No pneumothorax. Cardiomediastinal silhouette: Normal cardiomediastinal silhouette. Bones and soft tissues: Unremarkable. IMPRESSION: No acute radiographic abnormality. Home Improvement Contractor: [facility] Transcribe Date/Time: Apr 01 2024 4:04P Dictated by : NAVEEN IBRAHIM MD This examination was interpreted and the report reviewed and electronically signed by: NAVEEN IBRAHIM MD on Apr 01 2024 4:05PM EST [id number] Normal [facility] XR Chest PA and Lateralon IMPRESSION: No acute radiographic abnormality. Home Improvement Contractor: [facility] Transcribe Date/Time: Apr 01 2024 4:04P Dictated by : NAVEEN IBRAHIM MD This examination was interpreted and the report reviewed and electronically signed by: NAVEEN IBRAHIM MD on Apr 01 2024 4:05PM EST DIVISION OF RADIOLOGY * * *Final Report* * * DATE OF EXAM: Apr 01 2024 4:02PM WOX 5291 - XR CHEST 2V FRONTAL/LAT / PROCEDURE REASON: Rhonchi * * * * Physician Interpretation * * * * EXAMINATION: CHEST RADIOGRAPH (2 VIEW FRONTAL & LATERAL) CLINICAL HISTORY: Rhonchi MQ: XC2_6 EXAM DATE/TIME: 04/01/2024 4:02 PM COMPARISON: 02/03/2019 RESULT: Lines, tubes, and devices: None. Lungs and pleura: No consolidation. No lung mass. No pleural effusion. No pneumothorax. Cardiomediastinal silhouette: Normal cardiomediastinal silhouette. Bones and soft tissues: Unremarkable. DIVISION OF RADIOLOGY Provider, [facility] - 04/01/2024 * * *Final Report* * * DATE OF EXAM: Apr 01 2024 4:02PM WOX 5291 - XR CHEST 2V FRONTAL/LAT / PROCEDURE REASON: Rhonchi * * * * Physician Interpretation * * * * EXAMINATION: CHEST RADIOGRAPH (2 VIEW FRONTAL & LATERAL) CLINICAL HISTORY: Rhonchi MQ: XC2_6 EXAM DATE/TIME: 04/01/2024 4:02 PM COMPARISON: 02/03/2019 RESULT: Lines, tubes, and devices: None. Lungs and pleura: No consolidation. No lung mass. No pleural effusion. No pneumothorax. Cardiomediastinal silhouette: Normal cardiomediastinal silhouette. Bones and soft tissues: Unremarkable. IMPRESSION IMPRESSION: No acute radiographic abnormality. Home Improvement Contractor: [facility] Transcribe Date/Time: Apr 01 2024 4:04P Dictated by : NAVEEN IBRAHIM MD This examination was interpreted and the report reviewed and electronically signed by: NAVEEN IBRAHIM MD on Apr 01 2024 4:05PM EST [facility] Radiology Study observation (narrative) Michell slade [facility] XR Chest PA and LateralOrder ed By: [facility] Provider on 04-01-2024 [facility] Abdomen Limitedon 02-16-2024 Abdomen Limited [facility] Imaging Services [address] [place] [id number] Abdomen Limited MR#: [id number] Acct: [id number] Name: BELIA ORELLANA Rep #: [id number] : 1970 F 53 From: Tony Ramírez MD PCP: Dr. Aidan Pinto MD Status: REG CLI Study: Abdomen Limited Date of Exam: 02/16/24 Exam# [id number] Ordering Dr: Aidan Pinto MD [id number] STUDY: ABDOMINAL ULTRASOUND - RIGHT UPPER QUADRANT REASON FOR VISIT: Female, 53 years old RUQ PAIN TECHNIQUE: Ultrasound evaluation of the right upper quadrant was performed with real-time and static hagan-scale imaging. TECHNICAL QUALITY: Adequate. COMPARISON: 01/10/2022 FINDINGS: Liver: The liver measures 17.1 cm. There is increased echogenicity consistent with fatty infiltration. The bile ducts are within normal limits. There is hepatic color flow. The direction of portal flow is hepatopetal. There is no demonstrated mass lesion. Gallbladder: Normal distended gallbladder. The gallbladder wall measures 2 mm. There is a negative sonographic Forde''s sign. There is no pericholecystic fluid. There are no gallstones. Common Bile Duct (C.B.D.): The common bile duct measures 3 mm. Pancreas: Normal size of the head, body and tail of the pancreas. There is normal echogenicity of the pancreas. There is no demonstrated pancreatic mass or cyst. Right Kidney: Normal size of the right kidney. The right kidney measures 10.7 cm. Normal renal cortex. The right cortex measures 1.4 cm. There is no demonstrated renal mass or cyst. There is no right hydronephrosis. US/Abdomen Limited IMPRESSION: Fatty infiltration of the liver. Electronically Signed: Tony Ramírez MD at 14:08 EST , CC: Dr. Aidan Pinto MD Home Improvement Contractor: Signed Normal [facility] CBC W/Diff, Automatedon - Absolute Lymph 3.00 X10 3/uL Normal 0.83-4.51 [facility] Comment on above: Performed By: #### L 501.9520, L501.2450, L100.0100, L500.4050 #### [facility] [place], [address] Absolute Neut 5.0 X10 3/uL Normal 2.0-7.7 [facility] Comment on above: Performed By: #### L 501.9520, L501.2450, L100.0100, L500.4050 #### [facility] [address] [place], [address] Basophils/100 WBC (Bld) 0.7 % Normal 0-1 [facility] Comment on above: Performed By: #### L 501.9520, L501.2450, L100.0100, L500.4050 #### [facility] [address] [place], [address] Eosinophils/100 WBC (Bld) 2.9 % Normal 0-5 [facility] Comment on above: Performed By: #### L 501.9520, L501.2450, L100.0100, L500.4050 #### [facility] [address] [place], [address] Erythrocyte distribution width (RBC) [Ratio] 13.1 % Normal 11.6-14.6 [facility] Comment on above: Performed By: #### L 501.9520, L501.2450, L100.0100, L500.4050 #### [facility] [address] [place], [address] Hematocrit (Bld) [Volume fraction] 45.9 % Normal 37-47 [facility] Comment on above: Performed By: #### L 501.9520, L501.2450, L100.0100, L500.4050 #### [facility] [address] [place], [address] Hemoglobin (Bld) [Mass/Vol] 15.2 g/dL High 12.0-15.0 [facility] Comment on above: Performed By: #### L 501.9520, L501.2450, L100.0100, L500.4050 #### [facility] [address] [place], [address] IG% 0.400 Normal 0.0-0.9 [facility] Comment on above: Result Comment: IG% - Immature Granulocytes (promyelocytes, myelocytes and metamyelocytes) > 1% indicates that a LEFT SHIFT is Present. Performed By: #### L 501.9520, L501.2450, L100.0100, L500.4050 #### [facility] [address] [place], [address] Lymphocytes/100 WBC (Bld) 32.6 % Normal 19-41 [facility] Comment on above: Performed By: #### L 501.9520, L501.2450, L100.0100, L500.4050 #### [facility] [address] [place], [address] MCH (RBC) [Entitic mass] 28.0 pg Normal 27.0-32.0 [facility] Comment on above: Performed By: #### L 501.9520, L501.2450, L100.0100, L500.4050 #### [facility] [address] [place], [address] MCHC (RBC) [Mass/Vol] 33.1 g/dL Normal 32-36 [facility] Comment on above: Performed By: #### L 501.9520, L501.2450, L100.0100, L500.4050 #### [facility] [address] [place], [address] MCV (RBC) [Entitic vol] 84.7 fL Normal 81-99 [facility] Comment on above: Performed By: #### L 501.9520, L501.2450, L100.0100, L500.4050 #### [facility] [address] [place], [address] Monocytes/100 WBC (Bld) 8.8 % Normal 0-10 [facility] Comment on above: Performed By: #### L 501.9520, L501.2450, L100.0100, L500.4050 #### [facility] [address] [place], [address] Neutrophils/100 WBC (Bld) 54.6 % Normal 47-70 [facility] Comment on above: Performed By: #### L 501.9520, L501.2450, L100.0100, L500.4050 #### [facility] [address] [place], [address] Nucleated RBC (Bld) [#/Vol] 0 10*3/uL Normal 0-5 [facility] Comment on above: Performed By: #### L 501.9520, L501.2450, L100.0100, L500.4050 #### [facility] [address] [place], [address] Platelet mean volume (Bld) [Entitic vol] 9.8 fL Normal 6.2-12.0 [facility] Comment on above: Performed By: #### L 501.9520, L501.2450, L100.0100, L500.4050 #### [facility] [address] [place], [address] Platelets (Bld) [#/Vol] 307 10*3/uL Normal 150-450 [facility] Comment on above: Performed By: #### L 501.9520, L501.2450, L100.0100, L500.4050 #### [facility] [address] [place], [address] RBC (Bld) [#/Vol] 5.42 10*6/uL High 4.2-5.4 [facility] Comment on above: Performed By: #### L 501.9520, L501.2450, L100.0100, L500.4050 #### [facility] [address] [place], [address] RDW SD 39.8 fl Normal 35.1-43.9 [facility] Comment on above: Performed By: #### L 501.9520, L501.2450, L100.0100, L500.4050 #### [facility] [address] [place], [address] WBC (Bld) [#/Vol] 9.2 10*3/uL Normal 4.4-11.0 [facility] Comment on above: Performed By: #### L 501.9520, L501.2450, L100.0100, L500.4050 #### [facility] [address] [place], [address] Comprehensive Metabolic Prof aron 02-11-2024 Albumin [Mass/Vol] 4.0 g/dL Normal 3.2-5.0 [facility] Comment on above: Performed By: #### L 501.9520, L501.2450, L100.0100, L500.4050 #### [facility] [address] [place], [address] Albumin/Globulin [Mass ratio] 1.0 {ratio} Normal 0.9-2.4 [facility] Comment on above: Performed By: #### L 501.9520, L501.2450, L100.0100, L500.4050 #### [facility] [address] [place], [address] ALK P 114 U/L Normal 45-117 [facility] Comment on above: Performed By: #### L 501.9520, L501.2450, L100.0100, L500.4050 #### [facility] [address] [place], [address] ALT [Catalytic activity/Vol] 45 U/L Normal 13-56 [facility] Comment on above: Performed By: #### L 501.9520, L501.2450, L100.0100, L500.4050 #### [facility] [address] [place], [address] AST [Catalytic activity/Vol] 20 U/L Normal 15-37 [facility] Comment on above: Performed By: #### L 501.9520, L501.2450, L100.0100, L500.4050 #### [facility] [address] [place], [address] Bilirubin [Mass/Vol] 0.40 mg/dL Normal 0.20-1.00 [facility] Comment on above: Result Comment: For patients on eltrombopag therapy, use of Dimension [place] TBIL is not recommended. Performed By: #### L 501.9520, L501.2450, L100.0100, L500.4050 #### [facility] [address] [place], [address] BUN/CRE 23.9 RATIO High 10-20 [facility] Comment on above: Performed By: #### L 501.9520, L501.2450, L100.0100, L500.4050 #### [facility] [address] [place], [address] CA,Total 9.9 mg/dL Normal 8.5-10.1 [facility] Comment on above: Performed By: #### L 501.9520, L501.2450, L100.0100, L500.4050 #### [facility] [address] [place], [address] Chloride [Moles/Vol] 109 mmol/L High 98-107 [facility] Comment on above: Performed By: #### L 501.9520, L501.2450, L100.0100, L500.4050 #### [facility] [address] [place], [address] CO2 [Moles/Vol] 24.0 mmol/L Normal 21.0-32.0 [facility] Comment on above: Performed By: #### L 501.9520, L501.2450, L100.0100, L500.4050 #### [facility] [address] [place], [address] Creatinine [Mass/Vol] 0.80 mg/dL Normal 0.55-1.02 [facility] Comment on above: Result Comment: The validity of the calculated GFR GFRAA in patients over 70 years has not been determined. Clinical correlation is essential. Performed By: #### L 501.9520, L501.2450, L100.0100, L500.4050 #### [facility] [address] [place], [address] EST GFR - AA 96 mL/min Normal >60 [facility] Comment on above: Result Comment: Afri can Citizen [place] GFR Calc Performed By: #### L 501.9520, L501.2450, L100.0100, L500.4050 #### [facility] [address] [place], [address] GAP 7 Normal 5-15 [facility] Comment on above: Performed By: #### L 501.9520, L501.2450, L100.0100, L500.4050 #### [facility] [address] [place], [address] GFR/1.73 sq M.predicted among non-blacks MDRD (S/P/Bld) [Vol rate/Area] 79 mL/min/{1.73_m2} Normal >60 [facility] Comment on above: Result Comment: Non- GFR Calc Performed By: #### L 501.9520, L501.2450, L100.0100, L500.4050 #### [facility] [address] [place], [address] Globulin (S) [Mass/Vol] 3.9 g/dL Normal 2.2-4.2 [facility] Comment on above: Performed By: #### L 501.9520, L501.2450, L100.0100, L500.4050 #### [facility] [address] [place], [address] Glucose [Mass/Vol] 74 mg/dL Normal 74-106 [facility] Comment on above: Performed By: #### L 501.9520, L501.2450, L100.0100, L500.4050 #### [facility] [address] [place], [address] Potassium [Moles/Vol] 3.7 mmol/L Normal 3.5-5.1 [facility] Comment on above: Performed By: #### L 501.9520, L501.2450, L100.0100, L500.4050 #### [facility] [address] [place], [address] Sodium [Moles/Vol] 139 mmol/L Normal 136-145 [facility] Comment on above: Performed By: #### L 501.9520, L501.2450, L100.0100, L500.4050 #### [facility] [address] [place], [address] T PROT 7.9 g/dL Normal 6.4-8.2 [facility] Comment on above: Performed By: #### L 501.9520, L501.2450, L100.0100, L500.4050 #### [facility] [address] [place], [address] Urea nitrogen [Mass/Vol] 19 mg/dL High 7-18 [facility] Comment on above: Performed By: #### L 501.9520, L501.2450, L100.0100, L500.4050 #### [facility] [address] [place], [address] Lipaseon 02-11-2024 Lipase [Catalytic activity/Vol] 21 U/L Normal 13-75 [facility] Comment on above: Result Comment: Maribel de la rosa note: LIPASE revised reference range effective 22. New Lipase methodology. Expected to produce lower values than the previous assay method. NEW Reference Range: 13 - 75 U/L Performed By: #### L 501.9520, L501.2450, L100.0100, L500.4050 #### [facility] [address] [place], [address] MR FAILED ATTEMPTon 03-26-19 24 MR FAILED ATTEMPT This order has been auto-finalized and does not contain a result. This order has been auto-finalized and does not contain a result. This order has been auto-finalized and does not contain a result. [facility] Comment on above: Order Comment: Pt cl austrophobic Injury/Trauma or Illness?:Illness/Other How long have you had these symptoms (acute/chronic)?:Chronic Reason for exam?:Shoulder impingement syndrome Type of Exam?:Initial Additional signs and symptoms?:n Absolute lymphocyte countOrd ered By: Aidan Pinto on 10-31-2022 Lymphocytes Auto (Unsp spec) [#/Vol] 2.78 10*3/uL 0.83-4.51 [facility] Basophil percentageOrdered B y: Aidan Pinto on 10-31-2022 Basophils/100 WBC (Bld) 0.5 % 0-1 [facility] Bilirubin [Mass/Vol] 0.40 mg/dL 0.20-1.00 [facility] Comment on above: For patients on eltr ombopag therapy, use of Dimension [place] TBIL is not recommended. Chloride [Moles/Vol] 107 mmol/L 98-107 [facility] Cholesterol [Mass/Vol] 141 mg/dL <200 [facility] Comment on above: <200 mg/dL Desirable 200-240 mg/dL Borderline >240 mg/dL High Risk Eosinophils/100 WBC (Bld) 3.0 % 0-5 [facility] Glucose [Mass/Vol] 93 mg/dL 74-106 [facility] Neutrophils (Bld) [#/Vol] 5.6 10*3/uL 2.0-7.7 [facility] Neutrophils/100 WBC (Bld) 60.4 % 47-70 [facility] Potassium [Moles/Vol] 3.6 mmol/L 3.5-5.1 [facility] Protein [Mass/Vol] 7.6 g/dL 6.4-8.2 [facility] Sodium [Moles/Vol] 138 mmol/L 136-145 [facility] Triglyceride [Mass/Vol] 62 mg/dL <199 [facility] Comment on above: The drugs N-Acetylcy steine and Metamizole may falsely depress this assay.Serum Triglycerides Reference Interval Normal <150 mg/dL Borderline high 150 - 199 mg/dL High 200 - 499 mg/dL Very High > or = 500 mg/dL WBC (Bld) [#/Vol] 9.3 10*3/uL 4.4-11.0 [facility] Blood erythrocytes count (nu mber/volume)Ordered By: Aidan Pinto on 10-31-2022 RBC (Bld) [#/Vol] 4.97 10*6/uL 4.2-5.4 [facility] Blood hemoglobin measurement (mass/volume)Ordered By: Aidan Pinto on 10-31-2022 Hemoglobin (Bld) [Mass/Vol] 13.9 g/dL 12.0-15.0 [facility] Blood lymphocytes/100 leukoc ytesOrdered By: Aidan Pinto on 10-31-2022 Lymphocytes/100 WBC (Bld) 29.8 % 19-41 [facility] Blood monocytes/100 leukocyt esOrdered By: Aidan Pinto on 10-31-2022 Monocytes/100 WBC (Bld) 6.0 % 0-10 [facility] Blood platelet mean volumeOr dered By: Aidan Pinto on 10-31-2022 Platelet mean volume (Bld) [Entitic vol] 10.0 fL 6.2-12.0 [facility] Determination of erythrocyte mean corpuscular volume (MCV)Ordered By: Aidan Pinto on 10-31-2022 MCV (RBC) [Entitic vol] 89.1 fL 81-99 [facility] Hematocrit Auto (Bld) [Volum e fraction]Ordered By: Aidan Pinto on 10-31-2022 Hematocrit (Bld) [Volume fraction] 44.3 % 37-47 [facility] - Chemistry and C hemistry - challengeOrdered By: Aidan Pinto on 10-31-2022 ALP [Catalytic activity/Vol] 94 U/L 45-117 [facility] ALT [Catalytic activity/Vol] 49 U/L 13-56 [facility] CO2 [Moles/Vol] 25.0 mmol/L 21.0-32.0 [facility] Globulin (S) [Mass/Vol] 3.6 g/dL 2.2-4.2 [facility] Urea nitrogen/Creatinine [Mass ratio] 20.0 mg/mg 10-20 [facility] Laboratory - Hematology and Cell countsOrdered By: Aidan Pinto on 10-31-2022 Erythrocyte distribution width (RBC) [Entitic vol] 41.4 fL 35.1-43.9 [facility] Erythrocyte distribution width (RBC) [Ratio] 12.7 % 11.6-14.6 [facility] Immature granulocytes/100 WBC (Bld) 0.300 % 0.0-0.9 [facility] Comment on above: IG% - Immature Granu locytes (promyelocytes, myelocytes and metamyelocytes) > 1% indicates that a LEFT SHIFT is Present. MCH (RBC) [Entitic mass] 28.0 pg 27.0-32.0 [facility] Nucleated RBC/100 WBC (Bld) [Ratio] 0 % 0-5 [facility] MCHC Auto (RBC) [Mass/Vol]Or dered By: Aidan Pinto on 10-31-2022 MCHC (RBC) [Mass/Vol] 31.4 g/dL 32-36 [facility] No Panel InformationOrdered By: Aidan Pinto on 10-31-2022 Estimated GFR (MDRD) Amer 84 mL/min >60 [facility] Comment on above: GFR Calc Estimated GFR (MDRD) Non-Af Amer 69 mL/min >60 [facility] Comment on above: Non- GFR Calc Thyroid Stimulating Hormone (TSH) 1.57 uIU/mL 0.358-3.74 [facility] Platelets bldOrdered By: Adore Pinto on 10-31-2022 Platelets (Bld) [#/Vol] 290 10*3/uL 150-450 [facility] Serum or plasma albumin shannan urement (mass/volume)Ordered By: Aidan Pinto on 10-31-2022 Albumin [Mass/Vol] 4.0 g/dL 3.2-5.0 [facility] Serum or plasma albumin/glob ulin mass ratioOrdered By: Aidan Pinto on 10-31-2022 Albumin/Globulin [Mass ratio] 1.1 {ratio} 0.9-2.4 [facility] Serum or plasma calcium shannan urement (mass/volume)Ordered By: Aidan Pinto on 10-31-2022 Calcium [Mass/Vol] 9.4 mg/dL 8.5-10.1 [facility] Serum or plasma cholesterol in HDL measurement (mass/volume)Ordered By: Aidan Pinto on 10-31-2022 Cholesterol in HDL [Mass/Vol] 45 mg/dL >40 [facility] Comment on above: The drugs N-Acetylcy steine and Metamizole may falsely depress this assay. Reference Range HDL <40 mg/dL Low HDL Cholesterol HDL >or= 60 mg/dL High HDL Cholesterol Serum or plasma cholesterol in VLDL measurement (mass/volume)Ordered By: Aidan Pinto on 10-31-2022 Cholesterol in VLDL [Mass/Vol] 12 mg/dL 5-40 [facility] Serum or plasma creatinine m easurement (mass/volume)Ordered By: Aidan Pinto on 10-31-2022 Creatinine [Mass/Vol] 0.90 mg/dL 0.55-1.02 [facility] Comment on above: The validity of the calculated GFR & GFRAA in patients over 70 years has not been determined. Clinical correlation is essential. Serum or plasma low density lipoprotein (LDL) cholesterol measurement (mass/volume)Ordered By: Aidan Pinto on 10-31-2022 Cholesterol in LDL [Mass/Vol] 84 mg/dL 0-130 [facility] Serum or plasma urea nitroge n measurement (mass/volume)Ordered By: Aidan Pinto on 10-31-2022 Urea nitrogen [Mass/Vol] 18 mg/dL 7-18 [facility] Thin prep Papanicolaou smear with manual screeningOrdered By: Aidan Pinto on 10-31-2022 Thin prep Papanicolaou smear with manual screening 21 U/L 15-37 [facility] Thin prep Papanicolaou smear with manual screening 6 5-15 [facility] Serum Tricia Serrato virus cap jun IgG antibody assay (units/volume)on 01-15-2022 EBV capsid IgG Qn (S) 263.0 [arb'U]/mL 0.0-17.9 [facility] Work Phone: Comment on above: Negative <18.0 Equiv ocal 18.0 - 21.9 Positive >21.9 Serum Tricia Serrato virus cap jun IgM antibody assay (units/volume)on 01-15-2022 EBV capsid IgM Qn (S) [arb'U]/mL 0.0-35.9 [facility] Work Phone: Comment on above: Negative <36.0 Equiv ocal 36.0 - 43.9 Positive >43.9 Serum Tricia Serrato virus nuc lear IgG antibody assay (units/volume)on 01-15-2022 EBV nuclear IgG Qn (S) < 18.0 U/mL 0.0-17.9 [facility] Work Phone: Comment on above: Negative <18.0 Equiv ocal 18.0 - 21.9 Positive >21.9 Thin prep Papanicolaou smear with manual screeningon 01-15-2022 Thin prep Papanicolaou smear with manual screening Comment . [facility] Work Phone: Comment on above: EBV Interpretation C nor[place]: Antibody Present + Antibody Absent -Interpretation VCA-IgM VCA-IgG EBNA-IgGNo previous infection/ - - -SusceptiblePrimary infection (new + + -or recent)Past Infection +or- + +See comment below* + - -*Results indicate infection with EBV at some time however cannot predict the timing of the infection since antibodies to EBNA usually develop after primary infection or, alternatively, approximately 5-10% of patients with EBV never develop antibodies to EBNA.Performed at: [address] [id number] Director: Sukhjinder Clark PhD, Phone: [phone] Absolute lymphocyte counton 01-10-2022 Lymphocytes Auto (Unsp spec) [#/Vol] 2.97 10*3/uL 0.83-4.51 [facility] Work Phone: Basophil percentageon 2021 Basophils/100 WBC (Bld) 0.6 % 0-1 [facility] Work Phone: Bilirubin [Mass/Vol] 0.20 mg/dL 0.20-1.00 [facility] Work Phone: Comment on above: For patients on eltr ombopag therapy, use of Dimension [place] TBIL is not recommended. Chloride [Moles/Vol] 107 mmol/L 98-107 [facility] Work Phone: Eosinophils/100 WBC (Bld) 3.5 % 0-5 [facility] Work Phone: Glucose [Mass/Vol] 79 mg/dL 74-106 [facility] Work Phone: Neutrophils (Bld) [#/Vol] 6.9 10*3/uL 2.0-7.7 [facility] Work Phone: Neutrophils/100 WBC (Bld) 62.7 % 47-70 [facility] Work Phone: Potassium [Moles/Vol] 4.1 mmol/L 3.5-5.1 [facility] Work Phone: Protein [Mass/Vol] 7.6 g/dL 6.4-8.2 [facility] Work Phone: Sodium [Moles/Vol] 140 mmol/L 136-145 [facility] Work Phone: WBC (Bld) [#/Vol] 11.0 10*3/uL 4.4-11.0 [facility] Work Phone: Blood erythrocytes count (nu mber/volume)on 01-10-2022 RBC (Bld) [#/Vol] 5.34 10*6/uL 4.2-5.4 [facility] Work Phone: Blood hemoglobin measurement (mass/volume)on 01-10-2022 Hemoglobin (Bld) [Mass/Vol] 15.6 g/dL 12.0-15.0 [facility] Work Phone: Blood lymphocytes/100 leukoc yteson 01-10-2022 Lymphocytes/100 WBC (Bld) 27.0 % 19-41 [facility] Work Phone: Blood monocytes/100 leukocyt eson 01-10-2022 Monocytes/100 WBC (Bld) 5.9 % 0-10 [facility] Work Phone: Blood platelet mean volumeon 01-10-2022 Platelet mean volume (Bld) [Entitic vol] 10.1 fL 6.2-12.0 [facility] Work Phone: Determination of erythrocyte mean corpuscular volume (MCV)on 01-10-2022 MCV (RBC) [Entitic vol] 88.8 fL 81-99 [facility] Work Phone: Hematocrit Auto (Bld) [Volum e fraction]on 01-10-2022 Hematocrit (Bld) [Volume fraction] 47.4 % 37-47 [facility] Work Phone: Laboratory - Chemistry and C hemistry - challengeon 01-10-2022 ALP [Catalytic activity/Vol] 101 U/L 45-117 [facility] Work Phone: ALT [Catalytic activity/Vol] 42 U/L 13-56 [facility] Work Phone: CO2 [Moles/Vol] 26.0 mmol/L 21.0-32.0 [facility] Work Phone: Globulin (S) [Mass/Vol] 3.7 g/dL 2.2-4.2 [facility] Work Phone: Lipase [Catalytic activity/Vol] 106 U/L 73-393 [facility] Work Phone: Urea nitrogen/Creatinine [Mass ratio] 27.5 mg/mg 10-20 [facility] Work Phone: Laboratory - Hematology and Cell countson 01-10-2022 Erythrocyte distribution width (RBC) [Entitic vol] 41.9 fL 35.1-43.9 [facility] Work Phone: Erythrocyte distribution width (RBC) [Ratio] 12.9 % 11.6-14.6 [facility] Work Phone: [phone] Immature granulocytes/100 WBC (Bld) 0.300 % 0.0-0.9 [facility] Work Phone: Comment on above: IG% - Immature Granu locytes (promyelocytes, myelocytes and metamyelocytes) > 1% indicates that a LEFT SHIFT is Present. MCH (RBC) [Entitic mass] 29.2 pg 27.0-32.0 [facility] Work Phone: Nucleated RBC/100 WBC (Bld) [Ratio] 0 % 0-5 [facility] Work Phone: [phone] MCHC Auto (RBC) [Mass/Vol]on 01-10-2022 MCHC (RBC) [Mass/Vol] 32.9 g/dL 32-36 [facility] Work Phone: No Panel Informationon 01-10 Estimated GFR (MDRD) Amer 80 mL/min >60 [facility] Work Phone: Comment on above: GFR Calc Estimated GFR (MDRD) Non-Af Amer 66 mL/min >60 [facility] Work Phone: Comment on above: Non- GFR Calc Platelets bldon 01-10-2022 Platelets (Bld) [#/Vol] 299 10*3/uL 150-450 [facility] Work Phone: [phone] Serum or plasma albumin shannan urement (mass/volume)on 01-10-2022 Albumin [Mass/Vol] 3.9 g/dL 3.2-5.0 [facility] Work Phone: [phone] Serum or plasma albumin/glob ulin mass ratioon 01-10-2022 Albumin/Globulin [Mass ratio] 1.1 {ratio} 0.9-2.4 [facility] Work Phone: [phone] Serum or plasma calcium shannan urement (mass/volume)on 01-10-2022 Calcium [Mass/Vol] 9.6 mg/dL 8.5-10.1 [facility] Work Phone: Serum or plasma creatinine m easurement (mass/volume)on 01-10-2022 Creatinine [Mass/Vol] 0.94 mg/dL 0.55-1.02 [facility] Work Phone: Comment on above: The validity of the calculated GFR & GFRAA in patients over 70 years has not been determined. Clinical correlation is essential. Serum or plasma urea nitroge n measurement (mass/volume)on 01-10-2022 Urea nitrogen [Mass/Vol] 26 mg/dL 7-18 [facility] Work Phone: Thin prep Papanicolaou smear with manual screeningon 01-10-2022 Thin prep Papanicolaou smear with manual screening 15 U/L 15-37 [facility] Work Phone: Thin prep Papanicolaou smear with manual screening 7 5-15 [facility] Work Phone: Vital Signs Date Time Vital Sign Value Performing Clinician Faci lity 04-01-2024 15:38-0500 Body mass index (BMI) [Ratio] 38.27 kg/m2 Shalonda Toro APRN.SENIOR LICENSING MANAGER Work Phone: [facility] 04-01-2024 15:38-0500 Body temperature 100.6 [degF] Shalonda Toro APRN.SENIOR LICENSING MANAGER Work Phone: [facility] 04-01-2024 15:38-0500 Body weight 98 kg Shalonda Toro APRN.SENIOR LICENSING MANAGER Work Phone: [facility] 04-01-2024 15:38-0500 Diastolic blood pressure 84 mm[Hg] Shalonda Toro APRN.SENIOR LICENSING MANAGER Work Phone: [facility] 04-01-2024 15:38-0500 Heart rate 103 /min Shalonda Toro APRN.SENIOR LICENSING MANAGER Work Phone: [facility] 04-01-2024 15:38-0500 Respiratory rate 22 /min Shalonda Toro APRN.SENIOR LICENSING MANAGER Work Phone: [facility] 04-01-2024 15:38-0500 SaO2% (BldA) [Mass fraction] 99 % Shalonda Cortez METAL GRADER.SENIOR LICENSING MANAGER Work Phone: [facility] 04-01-2024 15:38-0500 Systolic blood pressure 139 mm[Hg] Shalonda Toro METAL GRADER.SENIOR LICENSING MANAGER Work Phone: [facility] 08-11-2022 09:31-0400 Body temperature 98.71 [degF] Willie Pendlebury METAL GRADER.SENIOR LICENSING MANAGER Work Phone: [facility] 08-11-2022 09:31-0400 Body weight 90.9 kg Willie Pendlebury METAL GRADER.SENIOR LICENSING MANAGER Work Phone: [facility] 08-11-2022 09:31-0400 Diastolic blood pressure 88 mm[Hg] Willie Pendlebury METAL GRADER.SENIOR LICENSING MANAGER Work Phone: [facility] 08-11-2022 09:31-0400 Heart rate 100 /min Willie Pendlebury METAL GRADER.SENIOR LICENSING MANAGER Work Phone: [facility] 08-11-2022 09:31-0400 Respiratory rate 21 /min Willie Pendlebury METAL GRADER.SENIOR LICENSING MANAGER Work Phone: [facility] 08-11-2022 09:31-0400 SaO2% (BldA) [Mass fraction] 98 % Willie Pendlebury METAL GRADER.SENIOR LICENSING MANAGER Work Phone: [facility] 08-11-2022 09:31-0400 Systolic blood pressure 110 mm[Hg] Willie Pendlebury METAL GRADER.SENIOR LICENSING MANAGER Work Phone: [facility] Encounters Encounter Date Encounter Type Care Provider Facility Start: 09-29-2024 ambulatory Sukhjinder Navarrete Facility :[facility] Start: 09-23-2024 ambulatory Aidan Pinto Facility:[facility] Start: 09-07-2024 End: 09-07-[address] Aidan Pinto MD Work Phone: [facility] Start: 09-07-2024 End: 09-07-[address] Aidan Pinto MD -Laboratory [facility] Start: 09-07-2024 End: 09-07-2024 ambulatory Aidan Pinto Facility:[facility] Start: 08-04-2024 End: 08-04-[address] Aidan Pinto MD Work Phone: [facility] Work Phone: Start: 08-04-2024 End: 08-04-[address] French Moya MD -Cat Scan [facility] Work Phone: Start: 08-04-2024 End: 08-04-2024 ambulatory Aidan Pinto Facility:[facility] Start: 04-02-2024 End: 04-02-2024 Emergency department patient visit Aidan Pinto Facility:[facility] Start: 04-01-2024 End: 04-01-2024 Subsequent hospital visit by physician [facility] Work Phone: Radiology Comment on above: Rhonchi [R09.89] Start: 04-01-2024 End: 04-01-2024 ambulatory AIDAN PINTO Facility:[facility] Start: 04-01-2024 End: 04-01-2024 Patient encounter procedure Shalonda Toro APRN.CNP Work Phone: [facility] Comment on above: Lower resp. tract in fection (Primary Dx); URI, acute; Rhonchi Start: 02-16-2024 End: 02-16-2024 ambulatory Aidan Pinto Facility:[facility] Start: 02-11-2024 End: 02-11-2024 ambulatory Aidan Pinto Facility:[facility] Start: 03-26-2023 End: 03-27-2023 ambulatory AIDAN PINTO [facility] Start: 12-04-2022 End: 12-04-2022 ambulatory [facility] Work Phone: Start: 12-04-2022 End: 12-04-2022 Patient encounter procedure [facility]-Radiology, [place] Work Phone: Start: 10-31-2022 End: 10-31-2022 ambulatory [facility] Work Phone: Start: 10-31-2022 End: 10-31-2022 Patient encounter procedure [facility] Start: 08-11-2022 End: 08-11-2022 Office outpatient visit 15 minutes Willie Escobedo APRN.SENIOR LICENSING MANAGER Work Phone: [facility] Comment on above: Avulsion of nail of right index finger (Primary Dx) Start: 06-26-2022 End: 06-26-2022 ambulatory [facility] Work Phone: Start: 06-26-2022 End: 06-26-2022 Patient encounter procedure [facility]-Radiology, [facility] Start: 01-15-2022 End: 01-15-2022 ambulatory [facility] Work Phone: Start: 01-15-2022 End: 01-15-2022 Patient encounter procedure [facility] Start: 01-10-2022 End: 01-10-2022 ambulatory [facility] Work Phone: Start: 01-10-2022 End: 01-10-2022 Patient encounter procedure [facility]-Ultrasound, [facility] Start: 10-30-2021 End: 10-30-2021 ambulatory [facility] Work Phone: Start: 10-30-2021 End: 10-30-2021 Patient encounter procedure [facility] Procedures Date Procedure Procedure Detail Performing Clinician Start: 08-04-[address] Aidan ash MD Work Phone: Start: 04-01-2024 INFLUENZA A&B MOLECU LAR (POC) Shalonda Toro APRN.SENIOR LICENSING MANAGER Work Phone: Start: 04-01-2024 Radiologic exam ches t 2 views Shalonda Toro APRN.SENIOR LICENSING MANAGER Work Phone: Start: 12-04-2022 Plain X-ray of shoulder Start: 06-26-2022 Plain chest X-ray Start: 01-10-2022 CT of abdomen Start: 10-30-2021 X-ray of chest posteroanterior view Start: 07-16-2016 Mammography Willie Doe [email or web address] METAL GRADER.NICHOLE Work Phone: Start: 07-05-2014 Lipid 1996 panel - S tammie or Plasma Shalonda Toro METAL GRADER.NICHOLE Work Phone: Plan of Treatment Date Care Activity Detail Author Start: 10-25-2023 Covid-19 Vaccine () Covid-19 Vaccine () [facility] Start: 10-25-2023 Influenza vaccination Influenza Vacc ine (#1) [facility] Start: 10-24-2022 Influenza vaccination INFLUENZA (Sea son Ended) [facility] Start: 07-17-2021 Urine microalbumin profile [facility] Start: 12-28-2020 COVID-19 VACCINE (3 - Booster for Pfizer series) COVID-19 VACCINE (3 - Booster for Pfizer series) [facility] Start: 03-12-2020 DIABETES SCREEN DIABETES SCREEN [facility] Start: 03-12-2020 Diabetes Screening Diabetes Screenin g [facility] Start: 07-06-2019 Lipid panel Lipid Screening [facility] Start: 07-06-2019 LIPID SCREEN LIPID SCREEN [facility] Start: 2018 SHINGRIX VACCINE (1 of 2) SHINGRIX V ACCINE (1 of 2) [facility] Start: 07-16-2017 Mammography MAMMOGRAM [facility] Start: 07-16-2017 Screening for malign ant neoplasm of breast Mammogram Screening [facility] Start: 2013 COLOGUARD (FIT-DNA) COLOGUARD (FIT-D NA) [facility] Start: 2013 Colonoscopy COLONOSCOPY [facility] Start: 2013 COLORECTAL CANCER SCREENING COLORECTAL CANCER SCREENING [facility] Start: [address] [facility] Start: 2013 FECAL OCCULT BLOOD FECAL OCCULT BLOO D [facility] Start: 2013 Screening for malign ant neoplasm of colon [facility] Start: 2013 SIGMOIDOSCOPY SIGMOIDOSCOPY [facility] Start: 06-28-1987 Hepatitis B Vaccine (1 of 3 - 19+ 3-dose series) Hepatitis B Vaccine (1 of 3 - 19+ 3-dose series) [facility] Start: 06-28-1987 Pneumococcal Vaccine : 50+ (1 of 2 - PCV) Pneumococcal Vaccine: 50+ (1 of 2 - PCV) [facility] Start: 1986 Anxiety Screening Anxiety Screening [facility] Start: 1986 HEPATITIS C SCREENING HEPATITIS C [facility] Start: 1986 Hepatitis C screening Hepatitis C [facility] Start: 1986 HIV SCREENING HIV SCREENING [facility] Start: 1986 HIV screening HIV Screening [facility] Start: 1974 PNEUMOCOCCAL (1 - PCV) PNEUMOCOCCAL (1 - PCV) [facility] Start: 1968 HEPATITIS B (1 of 3 - 3-dose series) HEPATITIS B (1 of 3 - 3-dose series) [facility] Immunizations Immunization Date Immunization Notes Care Provider Abdias del cid 05-08-2016 influenza virus vaccine, unspecified formulation Shalonda Toro METAL GRADER.SENIOR LICENSING MANAGER Work Phone: [facility] 11-23-2013 influenza virus vaccine, unspecified formulation Willie Escobedo METAL GRADER.SENIOR LICENSING MANAGER Work Phone: [facility] 07-18-2011 tetanus toxoid, redu santos diphtheria toxoid, and acellular pertussis vaccine, adsorbed Willie Escobedo METAL GRADER.SENIOR LICENSING MANAGER Work Phone: [facility] Payers Date Payer Category Payer [employer] Blue [employer] BLUE CARD PPO OOS [id number] 2024 Unknown [employer] BLUE CARD PPO OOS [id number] 2024-Present [phone] [address] [place] [id number] PPO [id number] 2024 Self-pay [id number] 2024 Unknown [id number] 2022 Private Health Insurance RAND QUICK OAP [id number] 2022-Present [phone] [address] [place] [address] Open Access [id number] 2021 Private Health Insurance [id number] 1970 Unknown [id number] 1970 Unknown [id number] Private Health Insurance [id number] Unknown YAYA [id number] Unknown [id number] Unknown [id number] Unknown [id number] Unknown [id number] Unknown [id number] Unknown [id number] Unknown [id number] Unknown [id number] Social History Date Type Detail Facility Start: 06-24-2021 End: 06-24-2021 Tobacco smoking status NHIS Unknown if ever smoked [facility] Start: 09-13-2019 None [facility] Start: 09-13-2019 With Family [facility] Start: 09-13-2019 Cigarettes [facility] Start: 1970 Sex Assigned At Female W [facility] Start: 01-15-1990 End: 04-01-2024 Tobacco smoking status NHIS Smokes tobacco daily [facility] Start: 01-15-1990 End: 01-15-2006 History of tobacco use Cigarette Smoker [facility] Start: 01-31-2020 End: 08-11-2022 Cigarettes smoked current (pack per day) - Reported 0.5 [facility] Start: 08-11-2022 End: 04-01-2024 Tobacco use and exposure Smokeless tobacco non-user [facility] Start: 08-11-2022 End: 04-01-2024 Alcohol intake Current drinker of alcohol (finding) [facility] Start: 08-11-2022 Tobacco Comment Quit for 8 yea rs, Started smoking again 1 year ago. [facility] Start: 08-10-2006 Alcohol Comment [facility] Start: 1970 Sex Assigned At Not on file [facility] Start: 01-31-2020 End: 04-01-2024 Tobacco use panel [facility] National Score (1-10 0), lower number is lower risk Not on file [facility] Start: 04-02-2024 Tobacco smoking stat us VTIS Ex-smoker (finding) [facility] Functional Status Date Assessment Result Facility 09-11-2014 Are you deaf, or do you have serious difficulty hearing No 09/11/2014 1:43 PM EDT Petra Gastelum MA No [facility] 09-11-2014 Are you blind, or do you have serious difficulty seeing, even when wearing glasses No 09/11/2014 1:43 PM EDT Petra Gastelum MA No [facility] 09-11-2014 Do you have serious difficulty walking or climbing stairs No 09/11/2014 1:43 PM EDT Petra Gastelum MA No [facility] 09-11-2014 Do you have difficul ty dressing or bathing No 09/11/2014 1:43 PM EDT Petra Gastelum MA No [facility] 09-11-2014 Because of a physica l, mental, or emotional condition, do you have difficulty doing errands alone such as visiting a physician's office or shopping No 09/11/2014 1:43 PM EDT Petra Gastelum MA No [facility] Mental Status Date Assessment Result Facility 09-11-2014 Because of a physica l, mental, or emotional condition, do you have serious difficulty concentrating, remembering, or making decisions No 09/11/2014 1:43 PM EDT Petra Gastelum MA No [facility] Clinical Notes 05-08-2016 to 08-05-2024 Leena Pryor RT(R) - 04/01/2024 3:50 PM Shalonda Polk APRN.SENIOR LICENSING MANAGER - 04/01/2024 3:45 PM Luanne Escobedo APRN.SENIOR LICENSING MANAGER - 08/11/2022 9:34 AM EDT Note Date & Type Note Facility 08-05-2024 Radiology Diagnostic study note [facility] Imaging Services [address] [place] [id number] Lung Screening MR#: [id number] Acct: [id number] Name: BELIA ORELLANA Annabel Rep #: [id number] : [id number] F 54 From: Abdi Kimble MD PCP: Dr. Aidan Pinto MD Status: REG C JESUS Study:Low Dose CT Lung Screening Date of Exam : 08/04/24 Exam# [id number] Ordering Dr: French Moya MD PROCEDURE: LOW DOSE CT LUNG SCREENING 08/04/2024 REASON FOR EXAM: HX NICOTINE DEPENDENCE TECHNIQUE: Low Dose CT Lung screening without contrast. Coronal and Sagittal reconstructionseries were provided. One or more dose reduction techniques were used (e.g., Automated exposure control, adjustment of the mA and/or kV according to patient size, use of iterative reconstruction technique). REFERENCE LINK: [email or web address] Lung-RADS RADIATION DOSE SUMMARY: CTDlvol: 4.02 mGy DLP: 120.34 mGycm COMPARISON: Prior study dated July 28, 2023. FINDINGS: PULMONARY NODULES: (Only nodules >3mm are reported) Nodules described below are on series 1 unless otherwise specified. Pulmonary Nodules: No suspicious pulmonary nodule seen. Hardware:None Lymph Nodes:No suspicious lymph nodes are present Heart and Vasculature:The heart is nonenlarged. Coronary Artery Calcifications: Minimal coronary artery calcification. Lungs and Airways: Stable mild degree of peribronchial thickening. Mild scarring at the lung bases. Pleura:Unremarkable Upper Abdomen:Unremarkable Bones:Degenerative changes of the thoracic spine. CT/Low Dose CT Lung Screening IMPRESSION: Stable examination Coronary artery calcification (CAC) is is present Lung-RADS Category: 2 BENIGN (BASED ON IMAGING FEATURES OR INDOLENT BEHAVIOR). RECOMMEND 12-MONTH SCREENING LDCT. Other Significant Findings: None. Reading Location: [id number] CC: Dr. Aidan Pinto MD; Dr. French Moya MD ~ Home Improvement Contractor: Signed [facility] 04-01-2024 History of Present illness Narrative Radiology Service Progress Note PATIENT NAME: Belia Orellana DATE OF SERVICE: April 01, 2024 TIME: 3:51 PM PATIENT IDENTITY VERIFICATION COMPLETED USING TWO (2) IDENTIFIERS: Name and Date of confirmed by patient verbally. FALL SCREENING: Has the patient had 2 falls in the last year or 1 fall with injury or currently using an Ambulatory Assistive Device (Walker, Cane, Wheelchair, Crutches, etc.)? No PATIENT GENDER DATA: Assigned female at . status: : No status: NO. PATIENT RELEVANT IMPLANT DATA REVIEWED: Not Applicable PATIENT PRESENTS WITH AN IMPLANTABLE OR ATTACHED RUG MEASURER: No RADIOLOGY DEPARTMENT: General X-ray: Exam(s) Completed: Chest X-Ray PERIPHERAL IV DATA: Not applicable SIGNED BY: RT Page(R) April 01, 2024 3:51 PM documented in this encounter [facility] 04-01-2024 Note HNO ID: [id number] Author: LEENA PRYOR RT(Tj) Service: Radiology Author Type: Technologist Type: Progress Notes Filed: 04/01/2024 16:02 Note Text: Radiology Service Progress Note PATIENT NAME: Belia Orellana DATE OF SERVICE: April 01, 2024 TIME: 3:51 PM PATIENT IDENTITY VERIFICATION COMPLETED USING TWO (2) IDENTIFIERS: Name and Date of confirmed by patient verbally. FALL SCREENING: Has the patient had 2 falls in the last year or 1 fall with injury or currently using an Ambulatory Assistive Device (Walker, Cane, Wheelchair, Crutches, etc.)? No PATIENT GENDER DATA: Assigned female at . status: : No status: NO. PATIENT RELEVANT IMPLANT DATA REVIEWED: Not Applicable PATIENT PRESENTS WITH AN IMPLANTABLE OR ATTACHED RUG MEASURER: No RADIOLOGY DEPARTMENT: General X-ray: Exam(s) Completed: Chest X-Ray PERIPHERAL IV DATA: Not applicable SIGNED BY: RT Page(Tj) April 01, 2024 3:51 PM [facility] 04-01-2024 Note HNO ID: [id number] Author: SHALONDA TORO APRN.SENIOR LICENSING MANAGER Service: ? Author Type: Nurse Practitioner Type: Progress Notes Filed: 04/01/2024 17:03 Note Text: Subjective HPI HPI Belia Orellana is a 53 year old female who presents today for CC of cough for 1 month, fever, congestion for 1 day. Has tried otc medication for relief. Symptoms are worsened by nothing. Risk factors sick exposures at work. Nonsmoker. Hx of copd. .Patient presents with: Fever: Runny nose, cough, chest congestion, sore throat, headache, body aches, x 1 day PAST MEDICAL HISTORY Diagnosis Date Abdominal pain, epigastric Acute gastritis without mention of hemorrhage Acute gastritis without mention of hemorrhage Benign neoplasm of stomach Esophagitis, unspecified Insomnia, unspecified Neuroma of foot 05/13/2010 Tachycardia 12/23/2010 PAST SURGICAL HISTORY Procedure Laterality Date DELIVERY ONLY , low cervical DILATION AND CURETTAGE DXAND/THER NONOBSTETRIC Dilation AND curettage x 2 and 1 was with a scope EGD REMOVAL TUMOR POLYP/OTHER LESION SNARE TECH 12/19/05 EGD TRANSORAL BIOPSY SINGLE/MULTIPLE 08/11/05 EGD TRANSORAL BIOPSY SINGLE/MULTIPLE 08/04/06 Pt had a special bx done ESOPHAGOGASTRODUODENOSCOPY TRANSORAL DIAGNOSTIC 10/29/2005 EGD PAST SURGICAL HISTORY OF partial hysterectomy PAST SURGICAL HISTORY OF carpal tunnel right hand ALLERGIES Celexa [Citalopram Hydrobromide], Vicodin [Hydrocodone-Acetaminophen], and Wellbutrin [Bupropion Hcl] MEDICATIONS TRELEGY ELLIPTA 100-62.5-25 mcg inhalation powder Inhale 1 Puff as instructed once daily. nortriptyline (PAMELOR) 50 mg capsule rosuvastatin (CRESTOR) 5 mg tablet Take by mouth. metoprolol succinate ER (TOPROL XL) 25 mg 24 hr tablet Take 25 mg by mouth once daily. omeprazole (PRILOSEC) 20 mg capsule Take 20 mg by mouth once daily. benzonatate (TESSALON PERLE) 100 mg capsule Take 1-2 capsules tid prn (Patient not taking: Reported on 02/03/2019) busPIRone (BUSPAR) 5 mg tablet Take 1 tablet by mouth three times daily as needed. (Patient not taking: Reported on 08/11/2022) FAMILY HISTORY Problem Relation Age of Onset other (stomach cancer [Other]) Mother Breast Cancer Maternal Aunt Hypertension Father from sepsis from intestinal obstruction other (tachycardia [Other]) Brother Social History Tobacco Use Smoking status: Every Day Current packs/day: 0.00 Average packs/day: 0.5 packs/day for 16.0 years (8.0 ttl pk-yrs) Types: Cigarettes Start date: 01/15/1990 Last attempt to quit: 01/15/2006 Years since quittin.2 Smokeless tobacco: Never Tobacco comments: Quit for 8 years, Started smoking again 1 year ago. Substance Use Topics Alcohol use: Yes Comment: rare Drug use: No Review of Systems Constitutional: Positive for chills, fever and malaise/fatigue. HENT: Positive for congestion. Negative for ear pain, nosebleeds and sore throat. Respiratory: Positive for cough. Negative for shortness of breath and wheezing. Musculoskeletal: Negative for neck pain. Skin: Negative for itching and rash. Objective Blood pressure 139/84, pulse 103, temperature (!) 38.1 ?C (100.6 ?F), resp. rate 22, weight 98 kg (216 lb 0.8 oz), SpO2 99%. Physical Exam Constitutional: General: She is not in acute distress. Appearance: She is not toxic-appearing or diaphoretic. HENT: Head: Normocephalic and atraumatic. Cardiovascular: Rate and Rhythm: Normal rate and regular rhythm. Heart sounds: Normal heart sounds, S1 normal and S2 normal. Pulmonary: Effort: Pulmonary effort is normal. Breath sounds: Examination of the left-lower field reveals rhonchi. Rhonchi present. No decreased breath sounds, wheezing or rales. Lymphadenopathy: Cervical: No cervical adenopathy. Right cervical: No superficial cervical adenopathy. Left cervical: No superficial cervical adenopathy. Neurological: Mental Status: She is alert and oriented to person, place, and time. Gait: Gait is intact. ASSESSMENT/PLAN: 1. Lower resp. tract infection - ICD9: 519.8, ICD10: J22 (primary diagnosis) - Discussed supportive care, - Limit exposure to smoke and other inhaled irritants - Discussed possible red flags and when to seek medical attention - Follow up in 3-5 days or sooner if no better or worse -If you experience chest pain/shortness of breath go to ER - DOXYCYCLINE MONOHYDRATE 100 MG TABLET 2. URI, acute - ICD9: 465.9, ICD10: J06.9 - Discussed viral etiology and rationale for treatment. - Symptomatic treatment with prn analgesia - Supportive care with fluids and rest - INFLUENZA AANDB MOLECULAR (POC) 3. Rhonchi - ICD9: 786.7, ICD10: R09.89 - XR CHEST 2V FRONTAL/LAT IMPRESSION: No acute radiographic abnormality. Dictated by : MD Shalonda NEVES APRN.SENIOR LICENSING MANAGER [facility] 04-01-2024 History of Present illness Narrative Subjective HPI HPI Belia Arevaloouser is a 53 year old female who presents today for CC of cough for 1 month, fever, congestion for 1 day. Has tried otc medication for relief. Symptoms are worsened by nothing. Risk factors sick exposures at work. Nonsmoker. Hx of copd. .Patient presents with: Fever: Runny nose, cough, chest congestion, sore throat, headache, body aches, x 1 day PAST MEDICAL HISTORY Diagnosis Date Abdominal pain, epigastric Acute gastritis without mention of hemorrhage Acute gastritis without mention of hemorrhage Benign neoplasm of stomach Esophagitis, unspecified Insomnia, unspecified Neuroma of foot 05/13/2010 Tachycardia 12/23/2010 PAST SURGICAL HISTORY Procedure Laterality Date DELIVERY ONLY , low cervical DILATION & CURETTAGE DX&/THER NONOBSTETRIC Dilation & curettage x 2 and 1 was with a scope EGD REMOVAL TUMOR POLYP/OTHER LESION SNARE TECH 12/19/05 EGD TRANSORAL BIOPSY SINGLE/MULTIPLE 08/11/05 EGD TRANSORAL BIOPSY SINGLE/MULTIPLE 08/04/06 Pt had a special bx done ESOPHAGOGASTRODUODENOSCOPY TRANSORAL DIAGNOSTIC 10/29/2005 EGD PAST SURGICAL HISTORY OF partial hysterectomy PAST SURGICAL HISTORY OF carpal tunnel right hand ALLERGIES Celexa [Citalopram Hydrobromide], Vicodin [Hydrocodone-Acetaminophen], and Wellbutrin [Bupropion Hcl] MEDICATIONS TRELEGY ELLIPTA 100-62.5-25 mcg inhalation powder Inhale 1 Puff as instructed once daily. nortriptyline (PAMELOR) 50 mg capsule rosuvastatin (CRESTOR) 5 mg tablet Take by mouth. metoprolol succinate ER (TOPROL XL) 25 mg 24 hr tablet Take 25 mg by mouth once daily. omeprazole (PRILOSEC) 20 mg capsule Take 20 mg by mouth once daily. benzonatate (TESSALON PERLE) 100 mg capsule Take 1-2 capsules tid prn (Patient not taking: Reported on 02/03/2019) busPIRone (BUSPAR) 5 mg tablet Take 1 tablet by mouth three times daily as needed. (Patient not taking: Reported on 08/11/2022) FAMILY HISTORY Problem Relation Age of Onset other (stomach cancer [Other]) Mother Breast Cancer Maternal Aunt Hypertension Father from sepsis from intestinal obstruction other (tachycardia [Other]) Brother Social History Tobacco Use Smoking status: Every Day Current packs/day: 0.00 Average packs/day: 0.5 packs/day for 16.0 years (8.0 ttl pk-yrs) Types: Cigarettes Start date: 01/15/1990 Last attempt to quit: 01/15/2006 Years since quittin.2 Smokeless tobacco: Never Tobacco comments: Quit for 8 years, Started smoking again 1 year ago. Substance Use Topics Alcohol use: Yes Comment: rare Drug use: No Review of Systems Constitutional: Positive for chills, fever and malaise/fatigue. HENT: Positive for congestion. Negative for ear pain, nosebleeds and sore throat. Respiratory: Positive for cough. Negative for shortness of breath and wheezing. Musculoskeletal: Negative for neck pain. Skin: Negative for itching and rash. Objective Blood pressure 139/84, pulse 103, temperature (!) 38.1 C (100.6 F), resp. rate 22, weight 98 kg (216 lb 0.8 oz), SpO2 99%. Physical Exam Constitutional: General: She is not in acute distress. Appearance: She is not toxic-appearing or diaphoretic. HENT: Head: Normocephalic and atraumatic. Cardiovascular: Rate and Rhythm: Normal rate and regular rhythm. Heart sounds: Normal heart sounds, S1 normal and S2 normal. Pulmonary: Effort: Pulmonary effort is normal. Breath sounds: Examination of the left-lower field reveals rhonchi. Rhonchi present. No decreased breath sounds, wheezing or rales. Lymphadenopathy: Cervical: No cervical adenopathy. Right cervical: No superficial cervical adenopathy. Left cervical: No superficial cervical adenopathy. Neurological: Mental Status: She is alert and oriented to person, place, and time. Gait: Gait is intact. ASSESSMENT/PLAN: 1. Lower resp. tract infection - ICD9: 519.8, ICD10: J22 (primary diagnosis) - Discussed supportive care, - Limit exposure to smoke and other inhaled irritants - Discussed possible red flags and when to seek medical attention - Follow up in 3-5 days or sooner if no better or worse -If you experience chest pain/shortness of breath go to ER - DOXYCYCLINE MONOHYDRATE 100 MG TABLET 2. URI, acute - ICD9: 465.9, ICD10: J06.9 - Discussed viral etiology and rationale for treatment. - Symptomatic treatment with prn analgesia - Supportive care with fluids and rest - INFLUENZA A&B MOLECULAR (POC) 3. Rhonchi - ICD9: 786.7, ICD10: R09.89 - XR CHEST 2V FRONTAL/LAT IMPRESSION: No acute radiographic abnormality. Dictated by : MD Shalonda NEVES APRN.SENIOR LICENSING MANAGER documented in this encounter [facility] 08-11-2022 History of Present illness Narrative Images from the original note were not included. Subjective HPI Nontoxic-appearing female presents urgent care and chief complaint fingertip laceration. Duration of symptoms 1 day. Associated symptoms pain and discomfort to right index finger. Patient states she was using a potato slicer yesterday morning when she excellently cut the tip of her finger. States the whole tip of finger was avulsed off. Did wash area under soap and water. Presents today for evaluation. No significant pain currently. Increased pain if she bumps area. No numbness no tingling. No decrease sensation. Past medical history prescription medication use allergies reviewed. .Patient presents with: Laceration: Cut tip of right index off x 1 day PAST MEDICAL HISTORY Diagnosis Date Abdominal pain, epigastric Acute gastritis without mention of hemorrhage Acute gastritis without mention of hemorrhage Benign neoplasm of stomach Esophagitis, unspecified Insomnia, unspecified Neuroma of foot 05/13/2010 Tachycardia 12/23/2010 PAST SURGICAL HISTORY Procedure Laterality Date DELIVERY ONLY , low cervical DILATION & CURETTAGE DX&/THER NONOBSTETRIC Dilation & curettage x 2 and 1 was with a scope EGD REMOVAL TUMOR POLYP/OTHER LESION SNARE TECH 12/19/05 EGD TRANSORAL BIOPSY SINGLE/MULTIPLE 08/11/05 EGD TRANSORAL BIOPSY SINGLE/MULTIPLE 08/04/06 Pt had a special bx done ESOPHAGOGASTRODUODENOSCOPY TRANSORAL DIAGNOSTIC 10/29/2005 EGD PAST SURGICAL HISTORY OF partial hysterectomy PAST SURGICAL HISTORY OF carpal tunnel right hand ALLERGIES Celexa [Citalopram Hydrobromide], Vicodin [Hydrocodone-Acetaminophen], and Wellbutrin [Bupropion Hcl] MEDICATIONS nortriptyline (PAMELOR) 50 mg capsule rosuvastatin (CRESTOR) 5 mg tablet Take by mouth. metoprolol succinate ER (TOPROL XL) 25 mg 24 hr tablet Take 25 mg by mouth once daily. omeprazole (PRILOSEC) 20 mg capsule Take 20 mg by mouth once daily. benzonatate (TESSALON PERLE) 100 mg capsule Take 1-2 capsules tid prn (Patient not taking: Reported on 02/03/2019 ) busPIRone (BUSPAR) 5 mg tablet Take 1 tablet by mouth three times daily as needed. (Patient not taking: Reported on 08/11/2022) FAMILY HISTORY Problem Relation Age of Onset other (stomach cancer [Other]) Mother Breast Cancer Maternal Aunt Hypertension Father from sepsis from intestinal obstruction other (tachycardia [Other]) Brother Social History Tobacco Use Smoking status: Every Day Packs/day: 0.50 Years: 16.00 Pack years: 8.00 Types: Cigarettes Last attempt to quit: 01/15/2006 Years since quittin.5 Smokeless tobacco: Never Tobacco comments: Quit for 8 years, Started smoking again 1 year ago. Substance Use Topics Alcohol use: Yes Comment: rare Drug use: No BP 110/88 Pulse 100 Temp 37.1 C (98.7 F) Resp 21 Wt 90.9 kg (200 lb 6.4 oz) SpO2 98% BMI 35.50 kg/m Review of Systems Constitutional: Negative for chills, fever and malaise/fatigue. HENT: Negative for congestion, ear discharge, ear pain, sinus pain and sore throat. Eyes: Negative for blurred vision, pain, discharge and redness. Respiratory: Negative for cough, hemoptysis, sputum production, shortness of breath, wheezing and stridor. Cardiovascular: Negative for chest pain. Gastrointestinal: Negative for abdominal pain, diarrhea, nausea and vomiting. Musculoskeletal: Negative for joint pain and myalgias. Skin: Negative for itching and rash. Neurological: Negative for dizziness and headaches. Objective Physical Exam Constitutional: General: She is not in acute distress. Appearance: She is not diaphoretic. HENT: Head: Normocephalic. Mouth/Throat: Mouth: Mucous membranes are moist. Pharynx: Oropharynx is clear. No oropharyngeal exudate or posterior oropharyngeal erythema. Eyes: Conjunctiva/sclera: Conjunctivae normal. Pupils: Pupils are equal, round, and reactive to light. Cardiovascular: Rate and Rhythm: Normal rate and regular rhythm. Heart sounds: Normal heart sounds. Pulmonary: Effort: Pulmonary effort is normal. No tachypnea, accessory muscle usage or respiratory distress. Breath sounds: Normal breath sounds. No stridor. Musculoskeletal: Hands: Cervical back: Normal range of motion and neck supple. No rigidity or tenderness. Comments: Avulsion injury noted to distal aspect second digit right hand. Portion of nail was involved. Neurovascular intact. No bone involvement noted. No foreign bodies. Lymphadenopathy: Cervical: No cervical adenopathy. Skin: General: Skin is warm and dry. Neurological: Mental Status: She is alert and oriented to person, place, and time. ASSESSMENT/PLAN: 1. Avulsion of nail of right index finger - ICD9: 883.0, ICD10: S61.300A No infection noted. No bone involvement noted. Finger dressed. Finger splint applied. Follow-up with PCP 2 to 3 days reevaluation. Tetanus shot was up-to-date. Patient was educated on supportive therapies. Patient was instructed to immediately proceed to emergency room for any new, worsening, or symptoms lasting longer than anticipated. The patient's clinical presentation is otherwise unremarkable at this time. Based on exam and clinical finding, the patient is stable for discharge. Plan of care was discussed with patient. Patient verbalizes understanding and agrees to plan of care. This note was generated using Bolt software. It may contain errors in wording, punctuation, or spelling. Willie Escobedo APRN.NICHOLE documented in this encounter [facility] 05-08-2016 History of Past i llness Narrative Problem Noted Date Resolved Date Osteoarthritis of spine with radiculopathy, lumb ar region 05/08/2016 07/09/2016 Spondylosis of lumbar region without myelopathy or radiculopathy 09/11/2014 07/09/2016 Chronic shoulder pain 09/11/2014 07/09/2016 Tachycardia 12/23/2010 05/08/2016 Palpitations 11/19/2007 05/08/2016 Disorders of bursae and tend ons in shoulder region, unspecified 10/28/2007 05/08/2016 Peptic ulcer, unspecified si te, unspecified as acute or chronic, without mention of hemorrhage, perforation, or obstruction 07/20/2007 05/08/2016 Esophagitis, unspecified 08/11/2005 017 Acute gastritis without mention of hemorrhage 05/08/2016 Abdominal pain, epigastric 05/08 documented as of this encounter (statuses as of 08/11/2022) [facility] noteNo assessment information availableWOhioHealth [facility] Hospital Work Phone: Evaluation note* Diagnosis Avulsion of nail of right index finger- Primary documented in this encounter [facility] note* Diagnosis Lower resp. tract infection- Primary Other diseases of respiratory system, not elsewhere classified URI, acute Acute upper respiratory infections of unspecified site Rhonchi Abnormal chest sounds documented in this encounter [facility] for referral (narrative)No reason for referral information availableWOhioHealth Mansfield Hospital Work Phone: Advance Directives No Advanced Directives Records Found Advance Directive Response Recorded Date/ Time Living Will No June 24, 2021 8: 25am Power of Manager Emergency No June 24, 2021 8:25am Advance Directive Response Recorded Date/ Time Living Will No June 24, 2021 7: 25am Power of Manager Emergency No June 24, 2021 7:25am Chief Complaint and Reason for Visit Chief Complaint STAT US/ ABD PAIN- A DD LABS Chief Complaint CHEST XRAY LAT Chief Complaint RIGHT SHOULDER PAIN Chief Complaint Admit Date HX NICOTINE DEPENDENCE August 04, 2024 5 :49pm Summary Purpose Family History No Family History Records FoundNo Family History Records FoundNo Family History Records Found Additional Source Comments Goals (unrecognized section and content) Goals may be documented in a n alternate sectionGoals may be documented in an alternate sectionGoals may be documented in an alternate sectionGoals may be documented in an alternate sectionGoals may be documented in an alternate sectionGoals may be documented in an alternate sectionGoals may be documented in an alternate sectionGoals may be documented in an alternate sectionGoals may be documented in an alternate section Care Teams (unrecognized sec tion and content) Team Status: Active Member Role Status Dates Dr. Aidan Pinto MD Family Provider Active Dr. Aidan Pinto MD Primary Care Provider Active Team Status: Inactive Member Role Status Dates Dr. Aidan Pinto MD Primary Care Provider Active Dr. French Moya MD Attending Provider, Isaiah castrejon Provider Active Customer Complaint Clerk Relationship Specialty Start Date End Date Aidan Pinto MD [address] [facility] [address] [place] [address] PCP - General Family Medicine 08/11/22 Team Status: Inactive Member Role Status Dates Dr. Aidan Pinto MD Primary Care Provider, Attending Provider Active Team Status: Inactive Member Role Status Dates Dr. Aidan Pinto MD Primary Care Provi chrissy, Attending Provider, Referring Provider Active Customer Complaint Clerk Relationship Specialty Start Date End Date Aidan Pinto MD [address] [facility] [address] [place] [address] PCP - [facility] Medicine 08/11/22 Customer Complaint Clerk Relationship Specialty Start Date End Date Aidan Pinto MD [address] [facility] [address] [place], [place] [id number] PCP - [facility] Medicine 08/11/22 Team Status: Active Member Role Status Dates Dr. Aidan Pinto MD Primary Care Provider Active Team Status: Inactive Member Role Status Dates Dr. Aidan Pinto MD Primary Care Provider Active Start: August 04, 2024 End: August 04, 2024 Dr. French Moya MD Attending Provider Active Start: August 04, 2024 End: August 04, 2024 Dr. French Moya MD Referring Provider Active Start: August 04, 2024 End: August 04, 2024 Team Status: Active Member Role/Relationship Status Dates Dr. Aidan Pinto MD Primary Care Provider Active Team Status: Inactive Member Role/Relationship Status Dates Dr. Aidan Pinto MD Primary Care Provider Active Start: August 04, 2024 End: August 04, 2024 Dr. French Moya MD Attending Provider Active Start: August 04, 2024 End: August 04, 2024 Dr. French Moya MD Referring Provider Active Start: August 04, 2024 End: August 04, 2024 Team Status: Inactive Member Role/Relationship Status Dates Dr. Aidan Pinto MD Primary Care Provider Active Start: September 07, 2024 End: September 07, 2024 Dr. Aidan Pinto MD Attending Provider Active Start: September 07, 2024 End: September 07, 2024 Dr. Aidan Pinto MD Referring Provider Active Start: September 07, 2024 End: September 07, 2024 Source Comments (unrecognize d section and content) In the event this informatio n is protected by the Federal Confidentiality of Alcohol and Drug Abuse Patient Records regulations: The Federal rules restrict any use of the information to criminally investigate or prosecute any alcohol or drug abuse patient.[facility] CenterIn the event this information is protected by the Federal Confidentiality of Alcohol and Drug Abuse Patient Records regulations: The Federal rules restrict any use of the information to criminally investigate or prosecute any alcohol or drug abuse patient.[facility] CenterIn the event this information is protected by the Federal Confidentiality of Alcohol and Drug Abuse Patient Records regulations: The Federal rules restrict any use of the information to criminally investigate or prosecute any alcohol or drug abuse patient.[facility] Reason for Visit (unrecogniz ed section and content) Reason Comments Laceration Cut tip of right ind ex off x 1 day Reason Comments Fever Runny nose, cough, c hest congestion, sore throat, headache, body aches, x 1 day INFORMATION SOURCE (unrecogn ized section and content) DATE CREATED AUTHOR [facility] DATE CREATED AUTHOR AUTHOR'S ORGANIZ ATION 04/04/2024 [facility] DATE CREATED AUTHOR AUTHOR'S ORGANIZ ATION 09/22/2024 [facility] FOR RECORDS PERTAINING TO PATIENTS WHO ARE OR HAVE BEEN ENROLLED IN A CHEMICAL DEPENDENCY/SUBSTANCEABUSE PROGRAM, SOME INFORMATION MAY BE OMITTED. This clinical summary was aggregated from multiple sources. Caution should be exercised in using it in the provision of clinical care. This summary normalizes information from multiple sources, and as a consequence, information in this document may materially change the coding, format and clinical context of patient data. In addition, data may be omitted in some cases. CLINICAL DECISIONS SHOULD BE BASED ON THE PRIMARY CLINICAL RECORDS. [facility] [employer] provides no warranty or guarantee of the accuracy or completeness of information in this document.
== END | disposition home or self-care (01) ==
LOC: NM 09:42
PROVIDERS: PCP Family Medicine; Referring Provider Family Medicine; Visit Provider Family Medicine
DX: R10.9 Unspecified abdominal pain (principal)
CPT/HCPCS: 78226; 78227; A9537; J2805

== ENCOUNTER → 2024-09-29 | Outpatient (CLI) | payer BC, SELFPAY ==
--- NOTE | 2024-09-29 07:44 | US_ITS ---
PROCEDURE: ABD LIMITED W/ ELASTOGRAPHY REASON FOR EXAM: FATTY LIVER COMPARISON: Delete Prior study dated February 16, 2024. TECHNIQUE: Right upper quadrant abdominal ultrasound. [place] ElastQ Imaging shear wave elastography for non-invasive assessment of liver tissue stiffness. [employer] EPIQ Elite. FINDINGS: LIVER: Size: Enlarged (hepatomegaly) Length: 20 cm Echotexture: Diffusely echogenic suggesting fatty infiltration. There is evidence of focal fatty sparing adjacent to the gallbladder lumen. Contour: Normal Lesions: None identified Elastography: EQI Med: 8.8 kPa EQI Med Cedric: 1.71 m/s IQR/Med: 13 %* GALLBLADDER: No stones sludge wall thickening or tenderness. COMMON BILE DUCT: Normal measuring 3.9 mm . PANCREAS: Normal Visualized portions of the right kidney are unremarkable. No right upper quadrant ascites. US/ABD Limited w/ Elastography IMPRESSION: Moderate degree of hepatic fibrosis. Hepatomegaly. Diffuse fatty infiltration of the liver. Reference Values: SRU <1.37 m/s (5.7kPa): No to mild fibrosis 1.37 m/s - 2.2 m/s: Moderate to severe fibrosis >2.2 m/s (15kPa): Significant fibrosis / cirrhosis METAVIR Score F2 or higher: 1.34 m/s (5.7kPa) F3 or higher: 1.55 m/s (7.3kPa) F4: 1.80 m/s (10kPa) * If the IQR/Med is >30%, the variance in the measurements is a large and the a ccuracy of the measurement may be in question. Reading Location: [facility]
== END | disposition home or self-care (01) ==
LOC: OPUS 07:42
PROVIDERS: PCP Family Medicine; Referring Provider Internal Medicine Gastroenterology; Visit Provider Internal Medicine Gastroenterology
DX: K76.0 Fatty (change of) liver, not elsewhere classified (principal)
CPT/HCPCS: 76705; 76981

== ENCOUNTER → 2025-02-09 | Outpatient (CLI) | payer BC, SELFPAY ==
[2025-02-09 18:17] LABS: AST(SGOT) 21 U/L (<=31); Alanine Aminotransfer ALT/SGPT 37 U/L (<=34); Albumin, Serum 4.5 g/dL (3.5-5.0); Alkaline Phosphatase 104 U/L (35-104); Anion Gap 13 (5-15); BUN 17 mg/dL (4-19); BUN/Creat Ratio 19.9 RATIO (10-20); Calcium,Total 9.8 mg/dL (7.6-11.0); Carbon Dioxide 23.9 mmol/L (21.0-32.0); Chloride 103 mmol/L (98-108); Cholesterol 143 mg/dL (<=200); Globulin 3.2 g/dL (2.2-4.2); Glucose 88 mg/dL (70-99); Low Density Lipoprotein Calc. 86 mg/dL; Potassium 4.0 mmol/L (3.3-5.1); Triglycerides 85 mg/dL; Very Low Density Lipoprotein 17 mg/dL (5-40); cholesterol:hdl ratio screen 3.49
== END | disposition home or self-care (01) ==
LOC: MFPLAB 16:32
PROVIDERS: PCP Family Medicine; Referring Provider Family Medicine; Visit Provider Family Medicine
DX: Z00.00 Encounter for general adult medical examination without abnormal findings (principal); K76.0 Fatty (change of) liver, not elsewhere classified
CPT/HCPCS: 36415; 80053; 80061